=== PATIENT | male | born 1965 | race Caucasian/White ===

== ENCOUNTER → 2020-09-09 12:24 | Outpatient (BNVA) | payer OTHER, SELFPAY | PROVIDERS: PCP Internal Medicine; Referring Provider Internal Medicine; Visit Provider Internal Medicine | DX: I48.0 Paroxysmal atrial fibrillation (principal); I10 Essential (primary) hypertension; Z79.899 Other long term (current) drug therapy | CPT/HCPCS: 93005; 99212 ==

== ENCOUNTER 2020-09-24 15:25 | Emergency (ER) | payer OTHER, SELFPAY ==
--- NOTE | 2020-09-24 | XR_ITS ---
EXAMINATION: XR HAND/WRIST, RIGHT CLINICAL INFORMATION: Finger deformities. COMPARISON: 09/11/2018 TECHNIQUE: Four views of the right hand/wrist FINDINGS: There is dislocation of the proximal interphalangeal joints of the second, third, and fourth digits. There is likely dorsal displacement of the middle phalanges in relation to the proximal phalanges with a offset as well at the third and fourth digits. No acute fractures are seen. Remaining joint spaces are maintained. Soft tissue swelling present at the dislocation site. XR/XR hand wrist RT IMPRESSION: Dislocation of the second, third, and fourth proximal interphalangeal joints.
[2020-09-24 15:51] VITALS: BP 174/83; PULSE 98; RESP 17; TEMP 36.2; O2SAT 98; BMI 28.7
--- NOTE | 2020-09-24 17:25 | XR_ITS ---
EXAMINATION: XR HAND/WRIST, RIGHT CLINICAL INFORMATION: Post reduction COMPARISON: Radiographs from earlier today. TECHNIQUE: Four views of the right hand/wrist FINDINGS: There is been reduction of the dislocation at the second, third, and fourth proximal interphalangeal joints. Alignment is now anatomic. No acute fractures are seen. Mild degenerative changes at the carpometacarpal joints with small osteophytes noted. XR/XR hand wrist RT IMPRESSION: Reduction of the second, third, and fourth proximal interphalangeal joint dislocation with anatomic alignment.
[2020-09-24] MEDS: Lidocaine HCl 2 % MPF 5 ML VIAL INFILTRATI ×3 (17:30→17:31)
--- NOTE | 2020-09-24 17:31 | PC.NURSE ---
LIDOCAINE INJECTION ADMINISTERED BY pa TO REDUCE FINGERS. pT HAS BEEN SPLINTED AND AWAITS FURTHER INSTRUCTIONS.
[2020-09-24 17:32] VITALS: BP 153/82; PULSE 64; RESP 16; O2SAT 99
--- NOTE | 2020-09-24 17:36 | ED.EXTPRO ---
HPI - Extremity Problem General Chief complaint: Extremity Injury, Upper Stated complaint: fall fijnger injury Time Seen by Provider: 09/24/20 16:36 Source: patient Mode of arrival: ambulatory Limitations: no limitations History of Present Illness HPI Narrative: Patient presents to the ED for right hand injury. Patient states he was helping a friend and he was falling while going down the stairs so patient placed in his right hand out and fell onto his right fingers. Patient denies falling to the ground. Patient states only putting right hand out to prevent fall. Patient states he tripped over only 3 steps. Patient states 2nd 3rd and 4th finger are deformed. patient denies hitting head or loss of consciousness. Patient denies body falling to the ground. MD Complaint: extremity pain Related Data Home Medications Medication Instructions Recorded Confirmed amlodipine 10 mg tablet 10 mg PO DAILY 09/09/20 09/09/20 cholecalciferol (vitamin D3) 50 50 mcg PO DAILY 09/09/20 09/09/20 mcg (2,000 unit) capsule cyanocobalamin (vitamin B-12) 1,000 mcg SUBLINGUAL DAILY 09/09/20 09/09/20 1,000 mcg sublingual tablet donepezil 5 mg tablet 5 mg PO BEDTIME 09/09/20 09/09/20 folic acid 1 mg tablet 1 mg PO DAILY 09/09/20 09/09/20 lisinopril 5 mg tablet 5 mg PO DAILY 09/09/20 09/09/20 metoprolol tartrate 50 mg tablet 50 mg PO BID 09/09/20 09/09/20 oxybutynin chloride 10 mg 10 mg PO DAILY 09/09/20 09/09/20 tablet,extended release 24 hr teriflunomide 14 mg tablet 14 mg PO DAILY 09/09/20 09/09/20 Previous Rx's Medication Instructions Recorded pantoprazole 40 mg tablet,delayed 40 mg PO DAILY #30 tab 09/21/20 release Allergies Allergy/AdvReac Type Severity Reaction Status Date / Time No Known Allergies Allergy Verified 09/09/20 12:38 [No Known Allergies*] Review of Systems Review of Systems: Yes all other systems are reviewed and are negative Constitutional: Constitutional: Reports as per HPI and Reports no additional constitutional complaints Eyes: Eyes: Reports as per HPI and Reports no additional eye complaints ENT: Reports system reviewed and no additional complaints, except as documented and Reports as per HPI Cardiovascular: Cardiovascular: Reports as per HPI and Reports no additional cardiovascular complaints Respiratory: Respiratory: Reports as per HPI and Reports no additional respiratory complaints Gastrointestinal: Gastrointestinal: Reports as per HPI and Reports no additional gastrointestinal complaints Genitourinary: Genitourinary: Reports no additional male genitourinary complaints and Reports as per HPI Musculoskeletal: Musculoskeletal: Reports no additional musculoskeletal complaints, Reports as per HPI and Reports deformity ( Right 2/3/4 finger) Neurologic: Reports system reviewed and no additional complaints, except as documented and Reports as per HPI Psychiatric: Psychiatric: Reports no additional psychiatric complaints and Reports as per HPI [facility] Past Medical History Medical History Essential hypertension Multiple sclerosis PAF (paroxysmal atrial fibrillation) Surgical History History of back surgery (~12/2019) History of right cataract surgery Family History Family History Father No problems noted. Mother No problems noted. Social History Social History Alcohol intake: current Alcohol intake frequency: a few times a week Alcohol type: beer Smoking Status: Former smoker Cigarettes Per Day: 5 Smoked in Last 30 Days: No Use of substances other than those prescribed or required for medical reasons: No Advance Directives: No Advance Directives Information Provided: No Physical Exam Vital Signs: Vital Signs: Last Vital Signs Temp 97.1 F 09/24/20 15:51 Pulse 64 09/24/20 17:32 Resp 16 09/24/20 17:32 BP 153/82 H 09/24/20 17:32 Pulse Ox 99 09/24/20 17:32 Body Mass Index 28.7 Const: General: cooperative, healthy appearing, comfortable, no acute distress and well developed Orientation/consciousness: patient oriented x3 HENMT: Head: Yes normal to inspection, Yes No palpable skull fracture present, Yes atraumatic, No Childers's sign, No contusion, No cranial bruits, No hematoma, No laceration, No occipital foramen tenderness, No palpable skull fracture, No raccoon eyes, No scalp tenderness and No periorbital ecchymosis Eyes: General: appearance normal, both eyes and all related structures Neck: Neck: Yes normal visual inspection, Yes full ROM, Yes no lymphadenopathy, Yes no meningeal signs, Yes trachea midline, Yes supple and No tender Chest: Chest palpation & inspection: normal inspection of the chest, normal palpation of entire chest wall and no localized rib tenderness Resp: Effort & Inspection: normal respiratory effort and able to speak in complete sentences Auscultation: clear to auscultation bilaterally Cardio: Jugular venous distension: no JVD Heart sounds: S1 normal heart sound present and S2 normal heart sound present GI: Inspection: Yes normal to inspection : General: No CVA tenderness and Yes no CVA tenderness Back/Spine/Pelvis: Back: no CVA tenderness, No CVA tenderness and No back tenderness Skin: General skin exam: no rashes or lesions noted Neuro: General: patient oriented x3, gait normal, no meningeal signs and CN's II-XI intact bilaterally Cranial nerves: Yes CN's II-XII intact bilaterally Extrem: Other: positive for deformity of right 2/3/4 finger. Right fingers capillary refill is intact. Radial and brahical pulses of right upper exstremity. Other extremities are normal ( motor, neuro, and vascular exam) and negative for signs of trauma. Psych: Appearance: grossly normal, well kempt and not disheveled Course Course Course Narrative: Patient will be sent for x-ray to rule out any fracture or dislocations. Reevaluation(s) Reevaluation #1: 7 mL lidocaine was used for all 3 fingers. for anesthesia, 2% lidocaine was done. Fingers were clean with Betadine iodine. Patient placed in finger splint. Time: 17:45 Reevaluation #2: Patient's reduction was successful as per xray. Patient to be discharged and follow orthopedic. FInger splints placed by tech. Time: 18:16 MDM - Extremity (Nontraumatic) MDM Narrative Medical decision making narrative: finger dislocations. Discharge Plan Discharge Clinical Impression: Dislocation of finger Patient Disposition: Home, Self-Care Instructions: Finger Dislocation (ED) Prescriptions: No Action pantoprazole 40 mg tablet,delayed release (DR/EC) 40 mg PO DAILY Qty: 30 RF: 2 cholecalciferol (vitamin D3) 50 mcg (2,000 unit) capsule 50 mcg PO DAILY RF: 0 cyanocobalamin (vitamin B-12) 1,000 mcg tablet, sublingual 1,000 mcg sublingual DAILY RF: 0 lisinopril 5 mg tablet 5 mg PO DAILY RF: 0 folic acid 1 mg tablet 1 mg PO DAILY RF: 0 amlodipine 10 mg tablet 10 mg PO DAILY RF: 0 oxybutynin chloride 10 mg tablet extended release 24hr 10 mg PO DAILY RF: 0 Aubagio 14 mg tablet 14 mg PO DAILY RF: 0 donepezil 5 mg tablet 5 mg PO BEDTIME RF: 0 metoprolol tartrate 50 mg tablet 50 mg PO BID RF: 0 Referrals: Haroon Powers MD [Physician] - 2 days ( Right 2nd, 3rd, and 4th finger dislocation reduced.) Stand Alone Forms: Work/School Release Print Language: [place]
== END 2020-09-24 18:46 | disposition home or self-care (01) ==
PROVIDERS: Emergency Provider Emergency Medicine
DX: S63.280A Dislocation of proximal interphalangeal joint of right index finger, initial encounter (principal); S63.282A Dislocation of proximal interphalangeal joint of right middle finger, initial encounter; S63.284A Dislocation of proximal interphalangeal joint of right ring finger, initial encounter; W50.0XXA Accidental hit or strike by another person, initial encounter; Y93.9 Activity, unspecified; Y92.9 Unspecified place or not applicable; Y99.9 Unspecified external cause status; I48.0 Paroxysmal atrial fibrillation
CPT/HCPCS: 26770 ×3; 73110; 73130; 99284

== ENCOUNTER 2020-09-28 11:29 | Outpatient (REF) | payer OTHER, SELFPAY ==
--- NOTE | 2020-09-28 11:29 | XR_ITS ---
EXAMINATION: XR HAND, RIGHT CLINICAL INFORMATION: Dislocation of PIP joint of unspecified finger. COMPARISON: None TECHNIQUE: PA, lateral, and oblique views of the right hand. FINDINGS: There is normal alignment of and 60, PIP and DIP joints. No visible acute fracture, dislocation or subluxation seen. However there is volar displacement fracture along the proximal and mid phalanx second digit. Mild loss of the DIP joint second digit is noted. XR/XR hand RT min 3V IMPRESSION: Small displaced avulsion fracture base of mid phalanx second digit. Mild soft tissue swelling. Osteophytic changes DIP joint second digit.
== END 2020-09-28 11:30 | disposition home or self-care (01) ==
LOC: HO.HOSX 11:29
PROVIDERS: Visit Provider Orthopaedic Surgery
DX: S63.280A Dislocation of proximal interphalangeal joint of right index finger, initial encounter (principal); S63.282A Dislocation of proximal interphalangeal joint of right middle finger, initial encounter; S63.284A Dislocation of proximal interphalangeal joint of right ring finger, initial encounter; Z87.891 Personal history of nicotine dependence
CPT/HCPCS: 73130; 99202

== ENCOUNTER 2020-11-03 10:23 | Outpatient (REF) | payer OTHER, SELFPAY ==
[2020-11-03 12:01] LABS: Anion Gap 12 (12-20); Blood Urea Nitrogen 18 mg/dL (9-16); Calcium 9.1 mg/dL (8.4-10.2); Carbon Dioxide 31 mmol/L (22-29); Chloride 102 mmol/L (96-108); Cholesterol 255 mg/dL; Estimated Glomerular Filt Rate > 60; Glucose Fasting 111 mg/dL (60-99); HDL Cholesterol 50 mg/dL; LDL Cholesterol Calculated 160 mg/dl; Potassium 4.8 mmol/l (3.3-5.1); Sodium 140 mmol/L (135-145); Triglycerides 226 mg/dL
== END 2020-11-03 10:24 | disposition home or self-care (01) ==
LOC: HO.HMGCLDS 10:23
PROVIDERS: PCP Internal Medicine; Visit Provider Internal Medicine
DX: E78.5 Hyperlipidemia, unspecified (principal); I10 Essential (primary) hypertension; R73.01 Impaired fasting glucose
CPT/HCPCS: 36415; 80048; 80061

== ENCOUNTER → 2020-11-20 15:07 | Outpatient (BNVA) | payer OTHER, SELFPAY | PROVIDERS: PCP Internal Medicine; Visit Provider Urology ==

== ENCOUNTER 2020-12-23 10:20 | Outpatient (REF) | payer OTHER, SELFPAY | END 2020-12-23 10:21 | disposition home or self-care (01) | LOC: HO.LAB 10:20 | PROVIDERS: PCP Internal Medicine; Visit Provider Internal Medicine | DX: Z13.89 Encounter for screening for other disorder (principal) ==

== ENCOUNTER 2021-02-19 12:42 | Outpatient (REF) | payer OTHER, SELFPAY ==
[2021-02-19 14:23] LABS: Estimated Average Glucose 94 mg/dL; Hemoglobin A1c % 4.9 %
[2021-02-19 14:25] LABS: Alanine Aminotransferase 21 U/L (0-40); Anion Gap 14 (12-20); Aspartate Amino Transferase 19 U/L (5-37); Blood Urea Nitrogen 11 mg/dL (9-16); Calcium 9.3 mg/dL (8.4-10.2); Carbon Dioxide 26 mmol/L (22-29); Chloride 105 mmol/L (96-108); Cholesterol 255 mg/dL; Estimated Glomerular Filt Rate > 60; Glucose Fasting 103 mg/dL (60-99); HDL Cholesterol 41 mg/dL; LDL Cholesterol Calculated 167 mg/dl; Potassium 4.5 mmol/L (3.3-5.1); Sodium 140 mmol/L (135-145); Triglycerides 235 mg/dL
[2021-02-19 14:49] LABS: Vitamin D 25-OH Total 32.3 ng/mL (>30)
[2021-02-19 16:51] LABS: Folate 14.6 ng/mL (> or = 4.0); Vitamin B12 741 pg/mL (200-900)
== END 2021-02-19 12:43 | disposition home or self-care (01) ==
LOC: HO.HMGCLDS 12:42
PROVIDERS: PCP Internal Medicine; Visit Provider Internal Medicine
DX: E78.5 Hyperlipidemia, unspecified (principal); R73.01 Impaired fasting glucose; I10 Essential (primary) hypertension
CPT/HCPCS: 36415; 80048; 80061; 82306; 82607; 82746; 83036; 84450; 84460

== ENCOUNTER → 2021-09-08 07:15 | Outpatient (REF) | payer OTHER, SELFPAY ==
--- NOTE | 2021-09-08 07:19 | CA_ITS ---
INDICATIONS: PAROXYSMAL ATRIAL FIBRILLATION: HT: 5'11 WT: 202 BSA: 2.12 m^2 BP: 120/80 M-MODE/2D MEASUREMENTS: LVd: 5.41 cm LVs: 4.2 cm IVSd: 0.9 cm LVPWd: 0.9 cm ASC.Aorta: 3.1 cm RVd: 3.46 cm AO root: 3.6 cm LA: 4.2 cm LVOT: 2.1 cm TAPSE: 2.87 cm OTHER: RVSP: 19 mmHg Mitral E/A: 78.8 cm/s/ 70.7 cm/s = 1.1 E Med. 7.18 cm/s E Lat. 9.14 cm/s DOPPLER MEASUREMENTS: PPG 4 mmHg MPG 8 mmHg Velocity 140 m/s Valve Area: 2.84 cm^2 TRICUSPID: MP mmHg RA Vol. IVC: 1.48 LA Vol. 36.9 ml/m^2 RVS: 14.4 cm/s MTDD
--- NOTE | 2021-09-08 07:19 | CA_ITS ---
Transthoracic Echocardiogram Patient (Last, First, Middle): Daniel Guadalupe D Gender: Male Date of : 1965 Age: 56 Procedure Date: 09/08/2021 Procedure Type: Transthoracic Echocardiogram Location: OP Height: 180.34 cm Weight: 91.63 kg BSA: 2.12 m2 Heart Rate: bpm BP: 120 / 80 mmHg [place]: Referring MD: Gabriel Mathews MD Symptoms: I48.0 - Paroxysmal atrial fibrillation Conclusions: - 1. Normal LV systolic function with impaired relaxation filling pattern with elevated left ventricular end-diastolic pressure 2. Mild biatrial enlargement 3. Normal cardiac valvular Doppler 4. Normal RV systolic pressure 5. No gross pericardial effusion Findings Left Ventricle Normal left ventricular size, thickness, and systolic function. The visually estimated ejection fraction is between 55-60%. Spectral Doppler is indicative of an impaired relaxation filling pattern. Elevated left ventricular end diastolic pressure. E/E prime ratio is between 8 and 15 consistent with indeterminate filling pressures. Wall Motion Rest Echo Findings The basal inferior and basal inferoseptal segments are hypokinetic. All other scored wall segments showed normal motion. Right Ventricle Mildly increased right ventricular cavity size. There is normal right ventricular systolic function. Atria Mild biatrial enlargement. Interatrial shunt cannot be excluded. Aortic Valve Normal aortic valve structure and function. There is no aortic valve stenosis. There is no aortic valve regurgitation. Mitral Valve There is mild anterior and posterior mitral leaflet thickening. There is trace mitral valve regurgitation. There is no mitral valve stenosis. Pulmonic Valve The pulmonic valve was not well visualized. Tricuspid Valve Normal tricuspid valve structure. There is mild tricuspid valve regurgitation. The right ventricular systolic pressure is normal. The right ventricular systolic pressure is 21 mmHg. Normal right atrial pressure. There is no evidence of pulmonary hypertension. Great Vessels All visible segments of the aorta are normal in size. The pulmonary artery was not well visualized. Venous The inferior vena cava is normal in size and collapses greater than 50% with inspiration. Pericardium/Pleural There is no evidence of pericardial effusion. Prior Study Comparison No significant change compared to prior study dated: 10/05/2016. Measurements 2D Linear Measurements IVSd: 0.93 0.6-0.9/0.6-1.0 cm LVIDd: 5.41 3.9-5.3/4.2-5.9 cm LVIDd Index: 2.55 2.4-3.2/2.2-3.1 cm/m2 LVIDs: 3.80 2.0-3.6 cm LVPWd: 0.97 0.7-1.1 cm Ao Root: 3.60 2.1-3.5 cm LA Diam: 4.20 2.7-3.8/3.0-4.0 cm LAIDs Index: 1.98 1.5-2.3 cm/m2 LV Mass: 242.24 67-162/88-224 g LV Mass Index: 114.26 43-95/49-115 g/m2 LVOT Diam: 2.10 3.0+(-)1.3 cm 2D Systolic Function EF 4C: 52.70 >55% EF 2C: 55.20 >55% EF BiP: 55.00 >55% Mitral Valve MV Pk E: 0.79 MV PK A: 0.71 MV Decel Time: 253.00 E/A: 1.10 E'Lateral: 9.14 E'Medial: 7.18 E/E' Med: 11.00 E/E' Lat: 8.60 PHT: 74.00 MVA PHT: 2.97 Decel Cavalier: 3.11 Aortic Valve AoV Pk Luisito: 1.40 AoV Mn Luisito: 0.92 AoV VTI: 0.34 AoV Pk Grad: 8.00 Aov Mn Grad: 4.00 PATRICK Cont.VTI: 2.78 LVOT LVOT Pk Luisito: 1.19 LVOT Mn Luisito: 0.81 LVOT VTI: 0.27 LVOT Pk Grad: 6.00 LVOT Mn Grad: 3.00 LVOT Diam: 2.10 LVOT Area: 3.46 Diastolic Function MV Pk E: 0.79 MV Pk A: 0.71 E/A: 1.10 E'Medial: 7.18 E/E' Med: 11.00 E' Laterial: 9.14 E/E' Lat: 8.60 Right Ventricle TAPSE (mm): 2.87 Tricuspid Valve TR Pk Luisito: 2.15 TR Pk Grad: 18.00 RA Press: 3.00 RVSP: 21.00 Great Vessels Aorta Ao Root-2D: 3.60 2.0-3.7 cm Ao Asc: 3.10 2.1-3.4 cm Pulmonary Valve PV Pk Luisito: 1.25 Peak PV Grad: 6.00 Updated in Other Vendor System with Status of Final John Graves MD electronically signed on 09/14/2021 8:44:27 AM with status of Final
== END ==
LOC: HO.CARD 07:15
PROVIDERS: Visit Provider Internal Medicine
DX: I48.0 Paroxysmal atrial fibrillation (principal)
CPT/HCPCS: 93306

== ENCOUNTER → 2021-09-13 12:20 | Outpatient (REF) | payer OTHER, SELFPAY ==
--- NOTE | 2021-09-13 15:29 | ECG_ITS ---
Hook-up date: 2021-09-13 13:30:00 Duration: 47:59:00 Test Indications: Paroxysmal Atrial Fibrillation Medications: 93352 QRS complexes 2 Ventricular ectopics which represent <1 % of total QRS comp. 65 Supraventricular ectopics which represent <1 % of total QRS comp. * Paced QRS complexs which represent % of total QRS comp. VENTRICULAR ECTOPY 2 Isolated 0 Bigeminal Cycles 0 Couplets 0 Runs 0 Beats in Runs * Beats LONGEST at * BPM at :: -- * Beats FASTEST at * BPM at :: -- SUPRAVENTRICULAR ECTOPY 47 Isolated 1 Couplets 2 Runs 16 Beats in Runs 11 Beats LONGEST at 137 BPM at 08:42:31 2021-09-14 11 Beats FASTEST at 137 BPM at 08:42:31 2021-09-14 HEART RATES 46 MIN at 06:39:05 2021-09-14 61 AVG 120 MAX at 07:07:31 2021-09-14 LONGEST RR 1.4480 secs at 23:28:19 2021-09-13 S-T LEVELS Channel 1 - 128 mm at 13:30:00 2021-09-13 - 128 mm at 13:30:00 2021-09-13 Channel 2 - 128 mm at 13:30:00 2021-09-13 - 128 mm at 13:30:00 2021-09-13 Channel 3 - 128 mm at 03:24:91 -- - 128 mm at 03:24:91 Basic rhythm Normal sinus rhythm No long pause or profound bradycardia Frequent Sinus bradycardia , 56% of time HR < 60 bpm No sustained Atrial fibrillation No diary submitted Referred By: Gabriel Mathews Overread By: YASMANI PARSONS MD
== END ==
LOC: HO.CARD 12:20
PROVIDERS: PCP Internal Medicine; Referring Provider Internal Medicine; Visit Provider Internal Medicine
DX: I48.0 Paroxysmal atrial fibrillation (principal)
CPT/HCPCS: 93226

== ENCOUNTER → 2021-10-28 13:42 | Outpatient (BNVA) | payer OTHER, SELFPAY | PROVIDERS: PCP Internal Medicine; Referring Provider Internal Medicine; Visit Provider Internal Medicine | DX: I48.0 Paroxysmal atrial fibrillation (principal); I10 Essential (primary) hypertension; R93.1 Abnormal findings on diagnostic imaging of heart and coronary circulation | CPT/HCPCS: 93005; 99212 ==

== ENCOUNTER 2021-11-06 10:20 | Outpatient (REF) | payer OTHER, SELFPAY ==
[2021-11-06 11:57] LABS: Cholesterol 275 mg/dL; HDL Cholesterol 43 mg/dL; LDL Cholesterol Calculated 188 mg/dl; Triglycerides 221 mg/dL
== END 2021-11-06 10:21 | disposition home or self-care (01) ==
LOC: HO.HMGCLDS 10:20
PROVIDERS: Absent Provider Urology; Visit Provider Internal Medicine
DX: Z12.5 Encounter for screening for malignant neoplasm of prostate (principal); N13.8 Other obstructive and reflux uropathy; N32.0 Bladder-neck obstruction; N40.1 Benign prostatic hyperplasia with lower urinary tract symptoms; E78.5 Hyperlipidemia, unspecified
CPT/HCPCS: 36415; 80061; 84153

== ENCOUNTER → 2021-11-12 07:58 | Outpatient (REF) | payer OTHER, SELFPAY ==
--- NOTE | ~2021-11-12 | NM_ITS ---
EXERCISE MYOCARDIAL PERFUSION STUDY INDICATION: Atrial fibrillation, abnormal echocardiogram with wall motion abnormality, assess for coronary disease and ischemia TECHNIQUE: The patient was brought in for an exercise perfusion study on 11/12/2021. Patient performed exercise as per Bucky protocol and was injected 30 mCi of sestamibi once target heart rate was achieved. Images were obtained using the SPECT gamma camera interlaced with the gating device. Images were obtained in supine position. Resting perfusion study was performed on 11/15/2021. Patient was administered 30 mCi of sestamibi intravenously at rest. Images were then obtained in supine position. Total DLP 90mGy-cm. Images were processed with the software and compared side to side in short axis, horizontal long axis and vertical long axis views. FINDINGS: Raw images were reviewed. The stress perfusion study showed minimally reduced tracer uptake in the apical inferior wall. This is more accentuated with CT attenuation correction. The gated study shows normal LV systolic function with calculated LVEF of 62%. LV cavity is normal in size. The gated study shows normal wall thickening and contraction of segments. Resting study shows no significant perfusion abnormality. Gating at rest reveals normal wall motion with ejection fraction at 63%. The findings are consistent with very small reversible apical inferior defect, but with normal contractility. NM/NM cardiolite stress test IMPRESSION: 1. Myocardial perfusion imaging study shows probably normal myocardial perfusion. Very small apical inferior reversible defect, but with normal regional contractility and hence more likely artifactual than true ischemic defect. 2. Gated LVEF is 62% during stress and 63% during rest. 3. Transient ischemic dilatation not present. EKG component of the test reported separately.
--- NOTE | 2021-11-12 08:02 | CA_ITS ---
Acquisition Time: 2021-11-12 09:09:48 Total Exercise Time: 00:06:45 Test Indications: AFIB Medications: SEE CHART Protocol: VICENTE Max HR: 141 BPM 86% of Pred: 163 BPM Max BP: 170/078 mmHG Max Work Load: 8.1 METS Exercise stress test with exercise 6 min 45 sec of Vicente protocol, with mild shortness of breath, no chest discomfort, without arrythmia, with normotensive response to exercise, without EKG changes meeting criteria for ischemia. Nuclear images pending. Test reviewed with Dr Lyn. Referred By: Gabriel Mathews Overread By: SHAKA SCHUMACHER
== END ==
LOC: HO.CARD 07:58
PROVIDERS: PCP Internal Medicine; Visit Provider Internal Medicine
DX: R93.1 Abnormal findings on diagnostic imaging of heart and coronary circulation (principal)
CPT/HCPCS: 78452; 93017; A9500

== ENCOUNTER → 2021-11-23 12:08 | Outpatient (BNVA) | payer OTHER, SELFPAY | PROVIDERS: PCP Internal Medicine; Visit Provider Urology ==

== ENCOUNTER → 2022-01-26 12:44 | Outpatient (BNVA) | payer OTHER, SELFPAY | PROVIDERS: PCP Internal Medicine; Visit Provider Urology | DX: Z13.89 Encounter for screening for other disorder (principal) ==

== ENCOUNTER 2022-02-15 10:53 | Outpatient (REF) | payer OTHER, SELFPAY ==
[2022-02-15 14:10] LABS: MANUAL DIFF FLAG NO
[2022-02-15 14:14] LABS: Basophils Percent Auto 0.6 % (0-2); Eosinophils Absolute Auto 0.4 X10*3/uL (0.0-0.4); Eosinophils Percent Auto 5.5 % (0-4); Hematocrit 42.4 % (42.0-52.0); Hemoglobin 14.5 g/dl (14.0-18.0); Imm Gran Abs Auto 0.02 X10*3/uL (0.00-0.03); Imm Gran Pct Auto 0.3 % (0.0-0.4); Lymphocytes Absolute Auto 1.8 X10*3/uL (1.2-4.9); Lymphocytes Percent Auto 28.4 % (20-40); Mean Corpuscular HGB Conc 34.2 g/dl (31.0-36.0); Mean Corpuscular Hemoglobin 32.8 pg (27.0-33.0); Mean Corpuscular Volume 95.9 fL (80.0-98.0); Mean Platelet Volume 9.1 fL (9.4-12.4); Monocytes Absolute Auto 0.7 X10*3/uL (0.1-1.2); Monocytes Percent Auto 11.1 % (2-11); Neutrophils Absolute Auto 3.4 x10*3/uL (2.0-8.3); Neutrophils Percent Auto 54.1 % (45-73); Platelet Count 309 X10*3/uL (160-400); Red Blood Count 4.42 X10*6/uL (4.60-5.80); Red Cell Distribution Width 11.8 % (11.0-16.0); White Blood Count 6.4 X10*3/uL (4.8-10.8)
[2022-02-15 14:24] LABS: Estimated Average Glucose 97 mg/dL
[2022-02-15 14:25] LABS: Alanine Aminotransferase 34 U/L (0-40); Anion Gap 10 (12-20); Aspartate Amino Transferase 19 U/L (5-37); Blood Urea Nitrogen 14 mg/dL (9-16); Calcium 9.6 mg/dL (8.4-10.2); Carbon Dioxide 28 mmol/L (22-29); Chloride 106 mmol/L (96-108); Cholesterol 160 mg/dL; Estimated Glomerular Filt Rate > 60; Glucose Fasting 102 mg/dL (60-99); HDL Cholesterol 46 mg/dL; LDL Cholesterol Calculated 92 mg/dl; Potassium 4.7 mmol/L (3.3-5.1); Sodium 139 mmol/L (135-145); Triglycerides 111 mg/dL
[2022-02-15 14:42] LABS: Vitamin D 25-OH Total 39.1 ng/mL (>30)
[2022-02-15 14:48] LABS: Prostate Specific Antigen 2.19 ng/mL (<0.05-4.0)
[2022-02-15 14:56] LABS: Folate 16.1 ng/mL (> or = 4.0); Vitamin B12 594 pg/mL (200-900)
== END 2022-02-15 10:54 | disposition home or self-care (01) ==
LOC: HO.HMGCLDS 10:53
PROVIDERS: Urology; Visit Provider Internal Medicine
DX: I10 Essential (primary) hypertension (principal); E78.2 Mixed hyperlipidemia; D75.89 Other specified diseases of blood and blood-forming organs; R73.01 Impaired fasting glucose; E78.5 Hyperlipidemia, unspecified; I48.0 Paroxysmal atrial fibrillation; N40.1 Benign prostatic hyperplasia with lower urinary tract symptoms; N13.8 Other obstructive and reflux uropathy
CPT/HCPCS: 36415; 80048; 80061; 82306; 82550; 82607; 82746; 83036; 84153; 84450; 84460; 85025

== ENCOUNTER 2022-08-31 13:18 | Outpatient (REF) | payer OTHER, SELFPAY ==
--- NOTE | ~2022-08-31 | MR_ITS ---
EXAMINATION: MR BRAIN WITHOUT AND WITH CONTRAST CLINICAL INFORMATION: 57-year-old with diagnosis of long-standing MS for follow up exam. COMPARISON: 02/21/2018 MRI. TECHNIQUE: Multiplanar, multisequence MRI of the brain was obtained before and after the intravenous administration of 10 mL Gadavist. FINDINGS: BRAIN VOLUME: There is generalized diffuse brain parenchymal volume loss with some progression of left peritrigonal volume loss but otherwise stable. Diffuse callosal volume loss is stable. STRUCTURAL: No malformations. BRAIN AND MENINGES: Redemonstrated is a zone of DWI bright signal in the left mesial parietal lobe, stable in appearance from previous exam, which corresponds to a gyriform T2 hyperintensity on FLAIR/T2-weighted imaging and probably reflects T2 shine through, unchanged in appearance. Redemonstrated are extensive regions of patchy and confluent FLAIR/T2 signal hyperintensity within the subcortical and deeper periventricular white matter of both cerebral hemispheres with zones of the low T1 signal, particularly in the left periatrial region and within the centrum semiovale and periventricular regions bilaterally, similar in appearance to the previous exam, with an overall stable pattern and distribution of lesions, consistent with chronic demyelination. Encephalomalacia in the left peritrigonal region is similar to previous exam but with some progression of ex-vacuo dilatation of the trigone of the left lateral ventricle since previous exam consistent with some progression of volume loss regionally. Patchy T2 hyperintensity in the lenin on both sides of the midline is slightly less prominent on current study. No definite new lesions are seen and there is no definite evidence for abnormal enhancement to suggest active demyelination. No extra-axial fluid collections, acute infarction, mass lesion or pathologic intracranial enhancement and no space-occupying process or mass effect. VENTRICLES AND SUBARACHNOID SPACES: The ventricular system is similar in appearance to the previous exam without hydrocephalus aside from slight progression of dilatation of the trigone on the left. ORBITAL STRUCTURES: Right-sided lens extraction noted, stable in appearance. Otherwise, the visualized orbital structures are grossly unremarkable within the limitations of the study. VASCULAR: Signal voids are noted in the visualized major intracranial vessels. OSSEOUS STRUCTURES, SINUSES/MASTOIDS, EXTRACRANIAL SOFT TISSUES: There is pansinus mucosal inflammatory change with progression of ethmoid sinus disease since previous exam, now with some retained, probably aerosolized secretions in the left maxillary sinus. Minimal fluid signal in the right mastoid on current study. Osseous structures appear grossly intact. MR/MR head/brain wo/w con IMPRESSION: 1. Essentially stable pattern of demyelinating disease throughout both cerebral hemispheres with findings consistent with chronic demyelination with no new or enhancing lesions to suggest active demyelination. 2. Overall pattern of volume loss is similar to the previous exam with slight progression of deep left peritrigonal volume loss but otherwise no significant change in the appearance of the ventricular system. 3. Pansinus mucosal inflammatory changes with some progression in the ethmoid sinus, now with some retained fluid in the left maxillary sinus and right mastoid.
== END 2022-08-31 13:19 | disposition home or self-care (01) ==
LOC: HO.MRI 13:18
PROVIDERS: PCP Internal Medicine; Visit Provider Psychiatry & Neurology Neurology
DX: G35 Multiple sclerosis (principal)
CPT/HCPCS: 70553; A9585

== ENCOUNTER 2022-10-05 12:11 | Outpatient (REF) | payer OTHER, SELFPAY ==
[2022-10-05 17:02] LABS: Alanine Aminotransferase 25 U/L (0-40); Anion Gap 12 (12-20); Aspartate Amino Transferase 18 U/L (5-37); Blood Urea Nitrogen 12 mg/dL (9-16); Calcium 9.2 mg/dL (8.4-10.2); Carbon Dioxide 27 mmol/L (22-29); Chloride 104 mmol/L (96-108); Cholesterol 164 mg/dL; Estimated Glomerular Filt Rate > 60; Glucose Fasting 107 mg/dL (60-99); HDL Cholesterol 45 mg/dL; LDL Cholesterol Calculated 88 mg/dl; Potassium 4.4 mmol/L (3.3-5.1); Sodium 139 mmol/L (135-145); Triglycerides 158 mg/dL; Vitamin D 25-OH Total 44.7 ng/mL (>30)
== END 2022-10-05 12:12 | disposition home or self-care (01) ==
LOC: HO.HMGCLDS 12:11
PROVIDERS: PCP Internal Medicine; Visit Provider Internal Medicine
DX: E78.2 Mixed hyperlipidemia (principal); R73.01 Impaired fasting glucose; I10 Essential (primary) hypertension
CPT/HCPCS: 36415; 80048; 80061; 82306; 84450; 84460

== ENCOUNTER → 2022-10-31 12:37 | Outpatient (BNVA) | payer OTHER, SELFPAY | PROVIDERS: PCP Internal Medicine; Referring Provider Internal Medicine; Visit Provider Internal Medicine | DX: I48.0 Paroxysmal atrial fibrillation (principal); I10 Essential (primary) hypertension; R93.1 Abnormal findings on diagnostic imaging of heart and coronary circulation | CPT/HCPCS: 93005; 99212 ==

== ENCOUNTER 2023-02-20 12:21 | Outpatient (AMB) | payer OTHER, SELFPAY ==
--- NOTE | 2023-02-20 12:24 | MHC.PC.OV ---
Vital Signs 02/20/23 12:41 Height 5 ft 10 in Weight 206 lb BMI 29.6 BP 112/64 Blood Pressure Location Rt brachial Position Sitting Pulse 48 L Pulse Source Pulse Oximeter Pulse Oximetry (%) 97 Oxygen Delivery Method Room Air Intake Visit Reasons: PE annual physical Intake Note: Pt is here today for his Physical Exam Allergies No Known Allergies [No Known Allergies*] Allergy (Verified 02/20/23 12:51) Medication List - Last Reconciled 02/20/23 by Cynthia Joseph MD amlodipine 10 mg PO DAILY cholecalciferol (vitamin D3) 50 mcg PO DAILY cyanocobalamin (vitamin B-12) 1,000 mcg sublingual DAILY donepezil 5 mg PO BEDTIME folic acid 1 mg PO DAILY lisinopril 5 mg PO DAILY metoprolol tartrate 50 mg PO BID 90 days oxybutynin chloride ER 10 mg PO DAILY 90 days pantoprazole 40 mg PO DAILY rosuvastatin 5 mg PO DAILY tamsulosin 0.4 mg PO BEDTIME 90 days teriflunomide 14 mg PO DAILY tizanidine 4 mg PO BID Tobacco use date assessed: 02/20/23 HPI PE annual physical HPI Details 58-year-old male here today for physical exam. . He has multiple sclerosis, followed by Dr. Ceja , no new changes currently on teriflunomide and tizanidine as needed for muscle spasms. He sees Dr. Sapp for his overactive bladder currently on tamsulosin. He has paroxysmal atrial fibrillation, hypertension, dyslipidemia and found to have some regional wall motion abnormality of heart on echocardiogram, currently asymptomatic. He was seen earlier this year by Dr. Mathews advised to continue on metoprolol and amlodipine. His thromboembolic score is very low and duration of atrial fibrillation in the past has also been brief, hence not on any anticoagulation. He had an Echocardiogram done which showed with basal inferior/inferoseptal hypokinesis, LVEF is preserved at 55-60%. In the perfusion imaging, there was small apical inferior reversible defect but normal contractility. Thought to be possibly artifactual. Overall, findings could reflect possible coronary disease but he has got absolutely no symptoms at all. Hence no indication to proceed with further workup. Optimal control of blood pressure and cholesterol. [facility], [facility] Medical History (Updated 07/16/23 @ 16:47 by Cynthia Joseph MD) Lumbar disc disease with radiculopathy Mixed dyslipidemia Symptom of bladder outlet obstruction Macrocytosis without anemia Impaired fasting glucose Dyslipidemia Dislocation of proximal interphalangeal joint of right ring finger Dislocation of proximal interphalangeal joint of right middle finger Dislocation of proximal interphalangeal joint of right index finger Closed dislocation finger, proximal interphalangeal joint, traumatic Multiple sclerosis Essential hypertension PAF (paroxysmal atrial fibrillation) Surgical History Hx of colonoscopy History of back surgery (~12/2019) History of right cataract surgery Family History Father No problems noted. Mother No problems noted. Social History Housing: House Alcohol intake: current Alcohol intake frequency: a few times a week Alcohol type: beer Patient Tobacco Use Status: Former Tobacco user Years Smoked: 40 yrs e-Cigarette/Vaping Use: Never Used Current occupational status: disabled Current occupation: rt handed Cognitive needs: No Hearing needs: No Vision needs: No Questionnaire PHQ-9 Over the last 2 weeks, how often have you been bothered by any of the following problems? 1. Little interest or pleasure in doing things: not at all 2. Feeling down, depressed, or hopeless: not at all 3. Trouble falling or staying asleep, or sleeping too much: not at all 4. Feeling tired or having little energy: several days 5. Poor appetite or overeating: not at all 6. Feeling bad about yourself - or that you are a failure or have let yourself or your family down: not at all 7. Trouble concentrating on things, such as reading the newspaper or watching television: several days 8. Moving or speaking so slowly that other people could have noticed. Or the opposite - being so fidgety or restless that you have been moving around a lot more than usual: not at all 9. Thoughts that you would be better off or of hurting yourself in some way: not at all Total score: 2 Depression Screening Interpretation: Negative 34226 - PHQ-9 Billing: Yes Source: Developed by Drs. Leoncio L. ClifMarjorie cantu, Efrem Mustafa and colleagues, with an educational jd from [employer]. Thrive Questionnaire Declines Thrive assessment: No Date Thrive assessed: 02/20/23 I am a: Patient What is your living situation today?: I have a steady place to live Within the past 12 months, did the food you bought not last and you didn't have the money to get more?: Never true Within the past 12 months, did you worry whether your food would run out before you got money to buy more?: Never true Do you have trouble paying for medicines?: Yes Do you have trouble getting transportation to medical appointments?: No Do you have trouble paying your heating and electricity bill?: No Do you have trouble taking care of your child, family member or friend?: No Do you have trouble with day-to-day activities such as bathing, preparing meals, shopping, managing finances, etc.?: No Are you currently unemployed and looking for a job?: No Are you interested in more education?: No AUDIT C Alcohol Use Questionnaire (AUDIT-C) 1. How often do you have a drink containing alcohol?: Monthly or less 2. How many drinks containing alcohol do you have on a typical day when you are drinking?: 1 or 2 3. How often do you have six or more drinks on one occasion?: Never Total Score: 1 BLANCA-7 AMB Questionnaire BLANCA-7 Date BLANCA - 7 assessed: 02/20/23 Feeling nervous, anxious, or on edge: 1 = Several days Not being able to stop or control worryin = Several days Worrying too much about different things: 1 = Several days Trouble relaxin = Not at all Being so restless that it is hard to sit still: 0 = Not at all Becoming easily annoyed or irritable: 1 = Several days Feeling afraid as if something awful might happen: 0 = Not at all Total BLANCA-7 score (0-4 normal; 5-9 mild; 10-14 moderate; 15-21 severe): 4 Source: Developed by Marjorie English, Efrem Mustafa and colleagues, with an educational jd from [employer]. BLANCA-7 Assessment Billing BLANCA-7 Assessment Tool: BLANCA-7 Assessment 38388 Review of Systems Const Denies body aches, Denies fatigue, Denies malaise and Denies weakness Eyes Denies change in vision ENT Reports no additional complaints Card Denies chest pain, Denies chest pain with activity, Denies syncope, Denies rapid heart rate, Denies leg edema, Denies lightheadedness, Denies palpitations, Denies dyspnea, Denies dyspnea on exertion and Denies orthopnea Resp Denies cough, Denies dyspnea and Denies dyspnea on exertion GI Denies abdominal pain, Denies melena, Denies hematochezia, Denies change in bowel habits, Denies change in stool character and Reports heartburn (Occasional controlled on pantoprazole) Reports as per HPI Musc Denies abnormal gait, Denies muscle weakness, Denies numbness, Denies radiating pain into limb and Denies tingling Skin/Breast Denies lesions and Denies rash Neuro Denies abnormal gait, Denies syncope, Denies numbness, Denies tingling and Denies weakness Psych Reports no additional complaints Endo Denies fatigue and Denies palpitations Randell/Lymph Reports no additional complaints Aller/Immun Reports no additional complaints Physical exam (Primary Care) Vital Signs: Last Vital Signs Pulse 48 L 02/20/23 12:41 BP 112/64 02/20/23 12:41 Pulse Ox 97 02/20/23 12:41 Oxygen Delivery Method Room Air 02/20/23 12:41 BMI result Body Mass Index 29.6 Tobacco/Smoking Status: Tobacco use Status Tobacco use date assessed 02/20/23 02/20/23 12:25 Patient Tobacco Use Status Former Tobacco user 02/20/23 12:25 e-Cigarette/Vaping Use Never Used 02/20/23 12:25 PHQ-9: PHQ-9 Score PHQ-9: Total score 5 02/20/23 13:07 Depression Screening Interpretation: Negative Thrive Assessment: Date of Thrive Assessment Date Thrive assessed 02/20/23 02/20/23 12:46 Const Other: Alert oriented x3, no acute distress noted ambulatory with normal gait Orientation/consciousness: patient oriented x3 HENMT Face and sinus: Yes face symmetric Mouth: Normal oral and palatal mucosa present, oropharynx normal and moist mucous membranes Eyes General: appearance normal, both eyes and all related structures Neck Neck: Yes full ROM, Yes no lymphadenopathy and Yes supple Resp Auscultation: clear to auscultation bilaterally Cardio Rate: regular rate Rhythm: regular rhythm Peripheral pulses: posterior tibial pulses present bilateral and dorsalis pedis present bilateral GI Palpation (GI): Soft to palpation, nontender and no guarding Auscultation: normal bowel sounds General: Yes no CVA tenderness Back/Spine/Pelvis Back: no CVA tenderness and No back tenderness Skin General skin exam: no rashes or lesions noted Neuro General: patient oriented x3, gait normal, tone normal, moves all extremities, Normal light touch and pain sensation, no focal motor deficits and CN's II-XI intact bilaterally Extrem General: Yes full ROM, Yes no joint enlargement, Yes no pedal edema and Yes normal gait Psych Appearance: grossly normal and well kempt Mental Status: mental status grossly normal Speech and movement: Normal speech and movement present Affect: normal affect Thought process: Normal thought process present Assessment and Plan Assessment & Plan (1) Mixed dyslipidemia: Code(s): E78.2 - Mixed hyperlipidemia Plan: Fasting lipids ordered, continue on rosuvastatin 5 mg daily (2) Regional wall motion abnormality of heart: Code(s): R93.1 - Abnormal findings on diagnostic imaging of heart and coronary circulation Plan: Evaluated by Cardiology . Echocardiogram showed basal inferior/inferoseptal hypokinesis. LVEF is preserved at 55-60%. In the perfusion imaging, there was small apical inferior reversible defect but normal contractility. Thought to be possibly artifactual. Overall, findings could reflect possible coronary disease but he has got absolutely no symptoms at all. Hence no indication to proceed with further workup. Optimal control of blood pressure and cholesterol. (3) Overactive bladder: Code(s): N32.81 - Overactive bladder Plan: Followed by Dr. Hernandez, currently on tamsulosin (4) Multiple sclerosis: Comment: Followed by Dr. Ceja Code(s): G35 - Multiple sclerosis Plan: Currently on teriflunomide and tizanidine as needed for muscle spasm (5) Impaired fasting glucose: Code(s): R73.01 - Impaired fasting glucose Plan: Your fasting blood sugars the past were elevated above 100 mg/dL. Impaired glucose metabolism O2 at risk for developing diabetes mellitus type 2, as well as heart attack and stroke later on. Lifestyle changes at just weight loss, healthy eating habits, and regular exercise are important, and can prevent the progression to diabetes (6) Essential hypertension: Code(s): I10 - Essential (primary) hypertension Plan: Blood pressure at goal of less than 130/80. Continue with current medication. Reinforced importance of following a low sodium diet, getting regular exercise, and lowering stress levels. (7) PAF (paroxysmal atrial fibrillation): Comment: Continued beta-blockers. His thromboembolic score is very low and duration of atrial fibrillation in the past has also been brief. Hence not on any anticoagulation. Code(s): I48.0 - Paroxysmal atrial fibrillation Plan: Continue metoprolol tartrate 50 mg 1 tablet twice a day (8) Annual visit for general adult medical examination with abnormal findings: Code(s): Z00.01 - Encounter for general adult medical examination with abnormal findings Plan: Will check appropriate labs. Recommended dental visit every 6 months and regular eye exams, at least every 2 years. Take adequate calcium in diet and vitamin-D 3 at 2000 IU per cap once a day, in addition to weight-bearing exercises to help maintain good muscle tone and weight control. Instructed to do self testicular exam check for any mass. Up-to-date with his screening colonoscopy due again in 2026. Reminded to get his yearly flu shot, and advised to get COVID booster once available, advised as well to get his Shingrix vaccination for prevention of shingles Coding Level of Care Code Est Pt Prev Care 40-64y(08737) Diagnoses Mixed dyslipidemia E78.2 Regional wall motion abnormality of heart R93.1 Overactive bladder N32.81 Multiple sclerosis G35 Impaired fasting glucose R73.01 Essential hypertension I10 PAF (paroxysmal atrial fibrillation) I48.0 Annual visit for general adult medical examination with abnormal findings Z00.01 Additional Codes BLANCA-7 Assessment Billing - BLANCA-7 Assessment Tool: BLANCA-7 Assessment 89497 ([id number])
[2023-02-20 12:41] VITALS: BP 112/64; PULSE 48; O2SAT 97; BMI 29.6
== END 2023-02-20 13:07 | disposition home or self-care (01) ==
LOC: HO.HMGC 12:21
PROVIDERS: PCP Internal Medicine; Visit Provider Internal Medicine
DX: Z00.00 Encounter for general adult medical examination without abnormal findings (principal); G35 Multiple sclerosis; I10 Essential (primary) hypertension; I48.0 Paroxysmal atrial fibrillation; N32.81 Overactive bladder; E78.2 Mixed hyperlipidemia; R93.1 Abnormal findings on diagnostic imaging of heart and coronary circulation; R73.01 Impaired fasting glucose
CPT/HCPCS: 99396

== ENCOUNTER 2023-02-22 08:53 | Outpatient (REF) | payer OTHER, SELFPAY ==
[2023-02-22 11:59] LABS: Alanine Aminotransferase 28 U/L (0-40); Anion Gap 10 (12-20); Aspartate Amino Transferase 20 U/L (5-37); Blood Urea Nitrogen 14 mg/dL (9-16); Calcium 9.4 mg/dL (8.4-10.2); Carbon Dioxide 28 mmol/L (22-29); Chloride 107 mmol/L (96-108); Cholesterol 181 mg/dL; Estimated Glomerular Filt Rate > 60; Glucose Fasting 106 mg/dL (60-99); HDL Cholesterol 42 mg/dL; LDL Cholesterol Calculated 105 mg/dl; Potassium 4.3 mmol/L (3.3-5.1); Sodium 141 mmol/L (135-145); Triglycerides 171 mg/dL
[2023-02-22 12:28] LABS: Folate 14.6 ng/mL (> or = 4.0); Vitamin B12 746 pg/mL (200-900); Vitamin D 25-OH Total 44.5 ng/mL (>30)
== END 2023-02-22 08:54 | disposition home or self-care (01) ==
LOC: HO.HMGCLDS 08:53
PROVIDERS: PCP Internal Medicine; Visit Provider Internal Medicine
DX: E78.2 Mixed hyperlipidemia (principal); R73.01 Impaired fasting glucose; I10 Essential (primary) hypertension
CPT/HCPCS: 36415; 80048; 80061; 82306; 82607; 82746; 84450; 84460

== ENCOUNTER 2023-10-04 10:34 | Outpatient (REF) | payer OTHER, SELFPAY ==
[2023-10-04 12:15] LABS: Alanine Aminotransferase 19 U/L (0-40); Albumin Level 4.9 g/dL (3.5-5.0); Alkaline Phosphatase 53 U/L (39-117); Anion Gap 15 (12-20); Aspartate Amino Transferase 20 U/L (5-37); Bilirubin Total 0.9 mg/dL (0.0-1.0); Blood Urea Nitrogen 11 mg/dL (9-16); Calcium 9.8 mg/dL (8.4-10.2); Carbon Dioxide 26 mmol/L (22-29); Chloride 101 mmol/L (96-108); Cholesterol 298 mg/dL (<200); Estimated Glomerular Filt Rate > 60; Glucose Fasting 118 mg/dL (60-99); HDL Cholesterol 54 mg/dL (>40); LDL Cholesterol Calculated 201 mg/dL (<100); Potassium 4.4 mmol/L (3.3-5.1); Sodium 138 mmol/L (135-145); Total Protein 7.9 g/dL (6.5-8.0); Triglycerides 217 mg/dL (<150)
[2023-10-04 12:39] LABS: Vitamin D 25-OH Total 55.9 ng/mL (>30)
[2023-10-04 12:52] LABS: Folate 13.8 ng/mL (> or = 4.0); Vitamin B12 1015 pg/mL (200-900)
== END 2023-10-04 10:35 | disposition home or self-care (01) ==
LOC: HO.LAB 10:34
PROVIDERS: PCP Internal Medicine; Visit Provider Internal Medicine
DX: E78.2 Mixed hyperlipidemia (principal); G35 Multiple sclerosis; R73.01 Impaired fasting glucose; I10 Essential (primary) hypertension; I48.0 Paroxysmal atrial fibrillation
CPT/HCPCS: 36415; 80053; 80061; 82306; 82607; 82746

== ENCOUNTER 2023-10-05 11:27 | Outpatient (AMB) | payer OTHER, SELFPAY ==
--- NOTE | 2023-10-05 11:38 | A.OFFVIS_ITS ---
Intake Intake Visit Reasons: 1yr follow up/PVR Intake Note: Patient is Present for Follow Up PVR Urology Medication: Oxybutynin, Tamsulosin Antibiotic Allergies: None Blood Thinners: None PVR: 21 Allergies No Known Allergies [No Known Allergies*] Allergy (Verified 02/20/23 12:51) Medication List - Last Reconciled 10/05/23 by J Luis Hernandez MD amlodipine 10 mg PO DAILY cholecalciferol (vitamin D3) 50 mcg PO DAILY cyanocobalamin (vitamin B-12) 1,000 mcg sublingual DAILY donepezil 5 mg PO BEDTIME folic acid 1 mg PO DAILY lisinopril 5 mg PO DAILY metoprolol tartrate 50 mg PO BID 90 days oxybutynin chloride ER 10 mg PO DAILY 90 days pantoprazole 40 mg PO DAILY rosuvastatin 5 mg PO DAILY tamsulosin 0.4 mg PO BEDTIME 90 days teriflunomide 14 mg PO DAILY tizanidine 4 mg PO BID HPI HPI Comments History of Present Illness Details Daniel Guadalupe is a very pleasant male. He is a patient of Dr Roberson. He is seen for the following urologic conditions - lower urinary tract symptoms - urinary urgency Twelve month follow-up Has been on combination therapy Continue good response to combination oxybutynin and tamsulosin PVR 20 cc Continue yearly review Lower Urinary Tract Symptoms: Background of multiple sclerosis Current visit is for predominate obstructive symptoms. Current treatment includes medication, oxybutynin 10 mg and tamsulosin 0.4 mg Prostate Symptom Score Moderate (9-19), Bother 4. Symptoms include / , incomplete emptying, weak stream, straining, nocturia (>2), and are progressing 10/08 , urgency, frequency, and are improving 05/10 , and are stable. Results from testing include renal/bladder us Yes date 04/06/2017 PVR 20 prostate size 32 Prior Prostate Score unknown. PSA 04/10 1.5, 11/13 2.7, 02/11 2.2 Prostate volume 30-50gm. psychiatric diagnosis Yes SSRI Testing at next visit will include bladder scan [facility] Medical History Lumbar disc disease with radiculopathy Mixed dyslipidemia Symptom of bladder outlet obstruction Macrocytosis without anemia Impaired fasting glucose Dyslipidemia Dislocation of proximal interphalangeal joint of right ring finger Dislocation of proximal interphalangeal joint of right middle finger Dislocation of proximal interphalangeal joint of right index finger Closed dislocation finger, proximal interphalangeal joint, traumatic Multiple sclerosis Essential hypertension PAF (paroxysmal atrial fibrillation) Surgical History Hx of colonoscopy History of back surgery (~12/2019) History of right cataract surgery Family History Father No problems noted. Mother No problems noted. Social History Housing: House Alcohol intake: current Alcohol intake frequency: a few times a week Alcohol type: beer Patient Tobacco Use Status: Former Tobacco user Years Smoked: 40 yrs e-Cigarette/Vaping Use: Never Used Current occupational status: disabled Current occupation: rt handed Cognitive needs: No Hearing needs: No Vision needs: No Office Procedures Post Void Residual Post Residual Void Post Void Residual (PVR): 21 [id number] Void Residual by ultrasound Assessment & Plan Assessment & Plan (1) Symptom of bladder outlet obstruction: Comment: Followed by Dr. Hernandez Code(s): N32.0 - Bladder-neck obstruction (2) Overactive bladder: Code(s): N32.81 - Overactive bladder Plan Continue combination therapy Yearly review Orders: Orders AMB Urinalysis Automated Today Z13.9 - Encounter for screening, unspecified AMB Post Void Residual by ultrasound Today N32.81 - Overactive bladder Medications: Refilled tamsulosin 0.4 mg PO BEDTIME 90 caps 3RF 90 days N32.0 - Bladder-neck obstruction, N40.1 - Benign prostatic hyperplasia with lower urinary tract symptoms, R35.1 - Nocturia oxybutynin chloride ER 10 mg PO DAILY 90 tabs 3RF 90 days Patient Instructions: Imaging studies, laboratory and physical exam results were discussed and reviewed in detail. No major barriers to patient understanding were identified. An opportunity to ask questions regarding the treatment plan was provided. All questions were answered. The patient expressed understanding and agreement with the above treatment plan. The patient is aware they should contact our office by phone for worsening of their current condition or the appearance of new urologic symptoms. Compliance is encouraged with any medications and followup testing that is ordered. It is a privilege to participate in the urologic care of your patient. If you have any questions or concerns regarding treatment for the above conditions, or other urologic issues, please do not hesitate to contact me. The office telephone contact is [phone]. This note is constructed using voice recognition software. While every effort has been made to ensure accuracy veneer clipper helper errors may have been included. Yours sincerely, Dr J Luis Hernandez MD, [facility] - Urology Providers of Expert, Compassionate Care for the Genitourinary System Coding Level of Care Code Est Pt Level 4 (94483) Diagnoses Symptom of bladder outlet obstruction N32.0 Overactive bladder N32.81 CPT Codes Post Residual Void - PVR CPT Code: 57502-Fxpy Void Residual by ultrasound ([id number])
== END 2023-10-05 11:55 | disposition home or self-care (01) ==
PROVIDERS: Visit Provider Urology
DX: N32.0 Bladder-neck obstruction (principal); N32.81 Overactive bladder
CPT/HCPCS: 99213

== ENCOUNTER → 2023-10-05 11:27 | Outpatient (BNVA) | payer OTHER, SELFPAY | PROVIDERS: Visit Provider Urology | DX: N32.0 Bladder-neck obstruction (principal); N32.81 Overactive bladder | CPT/HCPCS: 51798; 99212 ==

== ENCOUNTER 2023-11-28 11:22 | Outpatient (AMB) | payer OTHER, SELFPAY ==
[2023-11-28 11:41] VITALS: BP 122/78; PULSE 63; O2SAT 95; BMI 28.7
--- NOTE | 2023-11-28 11:41 | A.OFFPC_ITS ---
Vital Signs 11/28/23 11:41 Height 5 ft 10 in Weight 200 lb BMI 28.7 BP 122/78 Blood Pressure Location Lt brachial Position Sitting Pulse 63 Pulse Source Pulse Oximeter Pulse Oximetry (%) 95 Oxygen Delivery Method Room Air Intake Visit Reasons: 6 mo. f/u labs Intake Note: Pt is here today for his 6 months f/u labs Allergies No Known Allergies [No Known Allergies*] Allergy (Verified 02/20/23 12:51) Medication List - Last Reconciled 11/28/23 by Cynthia Joseph MD amlodipine 10 mg PO DAILY cholecalciferol (vitamin D3) 50 mcg PO DAILY donepezil 5 mg PO BEDTIME folic acid 1 mg PO DAILY lisinopril 5 mg PO DAILY metoprolol tartrate 50 mg PO BID 90 days oxybutynin chloride ER 10 mg PO DAILY 90 days pantoprazole 40 mg PO DAILY rosuvastatin 5 mg PO DAILY tamsulosin 0.4 mg PO BEDTIME 90 days teriflunomide 14 mg PO DAILY tizanidine 4 mg PO BID Tobacco use date assessed: 11/28/23 Dental Screening Dental Screen Date: 11/28/23 Did you have a dental visit in the last 12 months?: Yes Did you have a dental problem in the last 6 months where you did not have access to dental care?: No Was dental information given to patient?: Patient has dentist HPI 6 mo. f/u labs HPI Details 58-year-old male with dyslipidemia, here today for his follow-up visit. He is currently taking rosuvastatin 5 mg once a day, eats only supper 1 big meal, and snacks during the day. However he has been sedentary for the last 3 months, no regular exercise. Recent fasting labs done showed marked elevation in his lipid levels and fasting glucose. Vitamin B12 was also noted to be high . He has been feeling well however, denies any chest pain, no headache, no lightheadedness, shortness of breath, irregular bowel movements or abdominal pain reported. [facility] Medical History Lumbar disc disease with radiculopathy Mixed dyslipidemia Symptom of bladder outlet obstruction Macrocytosis without anemia Impaired fasting glucose Dyslipidemia Dislocation of proximal interphalangeal joint of right ring finger Dislocation of proximal interphalangeal joint of right middle finger Dislocation of proximal interphalangeal joint of right index finger Closed dislocation finger, proximal interphalangeal joint, traumatic Multiple sclerosis Essential hypertension PAF (paroxysmal atrial fibrillation) Surgical History Hx of colonoscopy History of back surgery (~12/2019) History of right cataract surgery Family History Father No problems noted. Mother No problems noted. Social History Housing: House Alcohol intake: current Alcohol intake frequency: a few times a week Alcohol t ype: beer Patient Tobacco Use Status: Former Tobacco user Years Smoked: 40 yrs e-Cigarette/Vaping Use: Never Used Current occupational status: disabled Current occupation: rt handed Cognitive needs: No Hearing needs: No Vision needs: No Questionnaire PHQ-9 Over the last 2 weeks, how often have you been bothered by any of the following problems? 1. Little interest or pleasure in doing things: not at all 2. Feeling down, depressed, or hopeless: not at all 3. Trouble falling or staying asleep, or sleeping too much: several days 4. Feeling tired or having little energy: several days 5. Poor appetite or overeating: not at all 6. Feeling bad about yourself - or that you are a failure or have let yourself or your family down: not at all 7. Trouble concentrating on things, such as reading the newspaper or watching television: not at all 8. Moving or speaking so slowly that other people could have noticed. Or the opposite - being so fidgety or restless that you have been moving around a lot more than usual: not at all 9. Thoughts that you would be better off or of hurting yourself in some way: not at all Total score: 2 Depression Screening Interpretation: Negative Depression Screening Done: Yes 73411 - PHQ-9 Billing: Yes Source: Developed by Drs. Leoncio Menezes, Marjorie Mcfarland, Efrem Mustafa and colleagues, with an educational jd from [employer]. Thrive Questionnaire Date Thrive assessed: 11/28/23 I am a: Patient What is your living situation today?: I have a steady place to live Within the past 12 months, did the food you bought not last and you didn't have the money to get more?: Never true Within the past 12 months, did you worry whether your food would run out before you got money to buy more?: Never true Do you have trouble paying for medicines?: No Do you have trouble getting transportation to medical appointments?: Yes Do you have trouble paying your heating and electricity bill?: No Do you have trouble taking care of your child, family member or friend?: No Do you have trouble with day-to-day activities such as bathing, preparing meals, shopping, managing finances, etc.?: No Are you currently unemployed and looking for a job?: Yes Are you interested in more education?: No THRIVE Score: 1 AUDIT C Alcohol Use Questionnaire (AUDIT-C) 1. How often do you have a drink containing alcohol?: 2-4 times a month 2. How many drinks containing alcohol do you have on a typical day when you are drinking?: 5 or 6 3. How often do you have six or more drinks on one occasion?: Monthly Total Score: 6 BLANCA-7 AMB Questionnaire BLANCA-7 Date BLANCA - 7 assessed: 11/28/23 Feeling nervous, anxious, or on edge: 1 = Several days Not being able to stop or control worryin = Not at all Worrying too much about different things: 1 = Several days Trouble relaxin = Several days Being so restless that it is hard to sit still: 1 = Several days Becoming easily annoyed or irritable: 0 = Not at all Feeling afraid as if something awful might happen: 0 = Not at all Total BLANCA-7 score (0-4 normal; 5-9 mild; 10-14 moderate; 15-21 severe): 4 Source: Developed by Drs. Leoncio Menezes, Marjorie Mcfarland, Efrem Mustafa and colleagues, with an educational jd from [employer]. BLANCA-7 Assessment Billing BLANCA-7 Assessment Tool: BLANCA-7 Assessment 61441 Review of Systems Const Denies body aches, Denies fatigue, Denies malaise and Denies weakness Eyes Denies change in vision ENT Reports no additional complaints Card Denies chest pain, Denies chest pain with activity, Denies syncope, Denies rapid heart rate, Denies leg edema, Denies lightheadedness, Denies palpitations, Denies dyspnea and Denies dyspnea on exertion Resp Denies cough, Denies dyspnea and Denies dyspnea on exertion GI Denies abdominal pain, Denies melena, Denies hematochezia, Denies change in bowel habits, Denies change in stool character and Reports heartburn (Occasional controlled on pantoprazole) Musc Denies abnormal gait, Denies muscle weakness, Denies numbness, Denies radiating pain into limb and Denies tingling Neuro Denies abnormal gait, Denies syncope, Denies numbness, Denies tingling and Denies weakness Endo Denies fatigue and Denies palpitations Randell/Lymph Reports no additional complaints Aller/Immun Reports no additional complaints Physical exam (Primary Care) Vital Signs: Last Vital Signs Pulse 63 11/28/23 11:41 BP 122/78 11/28/23 11:41 Pulse Ox 95 11/28/23 11:41 Oxygen Delivery Method Room Air 11/28/23 11:41 BMI result Body Mass Index 28.7 Tobacco/Smoking Status: Tobacco use Status Tobacco use date assessed 11/28/23 11/28/23 11:50 Patient Tobacco Use Status Former Tobacco user 11/28/23 11:42 e-Cigarette/Vaping Use Never Used 11/28/23 11:42 PHQ-9: PHQ-9 Score PHQ-9: Total score 4 11/28/23 11:50 Depression Screening Interpretation: Negative Thrive Assessment: Date of Thrive Assessment Date Thrive assessed 11/28/23 11/28/23 11:50 Const Other: Alert oriented x3, no acute distress noted ambulatory with normal gait HENMT Face and sinus: Yes face symmetric Mouth: Normal oral and palatal mucosa present, oropharynx normal and moist mucous membranes Eyes General: appearance normal, both eyes and all related structures Neck Neck: Yes full ROM, Yes no lymphadenopathy and Yes supple Resp Auscultation: clear to auscultation bilaterally Cardio Rate: regular rate Rhythm: regular rhythm Peripheral pulses: posterior tibial pulses present bilateral and dorsalis pedis present bilateral GI Palpation (GI): Soft to palpation, nontender and no guarding Auscultation: normal bowel sounds General: Yes no CVA tenderness Back/Spine/Pelvis Back: no CVA tenderness and No back tenderness Skin General skin exam: no rashes or lesions noted Neuro General: gait normal, tone normal, moves all extremities, Normal light touch and pain sensation, no focal motor deficits and CN's II-XI intact bilaterally Extrem General: Yes full ROM, Yes no joint enlargement, Yes no pedal edema and Yes normal gait Results Reviewed Results Reviewed: Name: Daniel Mcnamara Age/Sex: 58/M : 1965 Unit#: [id number] Attend Dr: Cynthia Joseph MD Re10/04/23 Status: DEP REF Location: .LAB Disch: SPEC : [id number] ALETA: 10/04/23 STATUS: COMP REQ : [id number] RECD: 10/04/[address]: Cynthia Joseph MD COMP: 10/04/23 ENTERED: 10/04/[address]: ORDERED: CMP Fast, Lipid Panel, Vitamin D 25-OH Test Result Flag Reference Sodium 138 135-145 mmol/L Potassium 4.4 3.3-5.1 mmol/L CL 101 96-108 mmol/L CO2 26 22-29 mmol/L Gap 15 12-20 BUN 11 9-16 mg/dL Creat 0.95 0.5-1.4 mg/dL EGFR > 60 NOTE: For -[place] individuals, multiply the result by 1.210. Chronic Kidney Disease: Estimated GFR < 60 mL/min/1.73m2 Severe Kidney Disease: Estimated GFR < 15 mL/min/1.73m2 FBS 118 H 60-99 mg/dL A fasting glucose from 100-125 mg/dl is considered impaired (pre-diabetes). CA 9.8 8.4-10.2 mg/dL Total Bili 0.9 0.0-1.0 mg/dL AST (GOT) 20 5-37 U/L ALT (GPT) 19 0-40 U/L Protein, Total 7.9 6.5-8.0 g/dL Alb 4.9 3.5-5.0 g/dL Triglyceride 217 H <150 mg/dL Desirable Triglyceride: less than 150 mg/dL Borderline High Triglyceride 150-199 mg/dL High Triglyceride: 200-499 mg/dL Very High Triglyceride: greater than or equal to 5OO mg/dL Cholesterol 298 H <200 mg/dL Desirable Cholesterol: less than 200 mg/dL Borderline High Cholesterol: 200-239 mg/dL High Cholesterol: greater than 239 mg/dL LDL Calculated 201 H <100 mg/dL Desirable LDL: less than 100 mg/dL Near Optimal/Above Optimal LDL: 110-129 mg/dL Borderline High LDL: 130-159 mg/dL High LDL: 160-189 mg/dL Very High LDL: greater than or equal to 190 mg/dL HDL 54 >40 mg/dL Desirable HDL: greater than 40 mg/dL Note: This HDL assay may give artificially low results in patients with liver disease. Alk Phos 53 39-117 U/L Vit D 25-OH Tot 55.9 >30 ng/mL Health Based Reference Values* < 20 ng/mL Deficient 20-30 ng/mL Insufficient > 30 ng/mL Sufficient Assessment and Plan Assessment & Plan (1) Mixed dyslipidemia: Code(s): E78.2 - Mixed hyperlipidemia Plan: Increased rosuvastatin dosing to 10 mg once a day. Adherence to low-cholesterol diet stressed and again start doing regular exercise at least 30 minutes of cardio with daily. Repeat fasting lipid levels in January 2024 (2) Impaired fasting glucose: Code(s): R73.01 - Impaired fasting glucose (3) Essential hypertension: Code(s): I10 - Essential (primary) hypertension Plan: Blood pressure at goal of less than 130/80. Continue with current medication. Reinforced importance of following a low sodium diet, getting regular exercise, and lowering stress levels. Orders: Orders Vitamin B12 and Folate 02/12/24 E78.2 - Mixed hyperlipidemia, I10 - Essential (primary) hypertension, R73.01 - Impaired fasting glucose Hemoglobin A1c 02/12/24 E78.2 - Mixed hyperlipidemia, I10 - Essential (primary) hypertension, R73.01 - Impaired fasting glucose Basic Metabolic Panel Fasting 02/12/24 E78.2 - Mixed hyperlipidemia, I10 - Essential (primary) hypertension, R73.01 - Impaired fasting glucose Lipid Panel 02/12/24 E78.2 - Mixed hyperlipidemia, I10 - Essential (primary) hypertension, R73.01 - Impaired fasting glucose Alanine Aminotransferase 02/12/24 E78.2 - Mixed hyperlipidemia, I10 - Essential (primary) hypertension, R73.01 - Impaired fasting glucose Aspartate Amino Transferase 02/12/24 E78.2 - Mixed hyperlipidemia, I10 - Essential (primary) hypertension, R73.01 - Impaired fasting glucose Medications: Changed From rosuvastatin 5 mg PO DAILY 90 tabs 1RF E78.2 - Mixed hyperlipidemia To rosuvastatin 10 mg PO DAILY 90 tabs 1RF E78.2 - Mixed hyperlipidemia Refilled lisinopril 5 mg PO DAILY 90 tabs 1RF metoprolol tartrate 50 mg PO BID 90 days 180 tabs 1RF Coding Level of Care Code Est Pt Level 3 (26644) Diagnoses Mixed dyslipidemia E78.2 Impaired fasting glucose R73.01 Essential hypertension I10 Additional Codes BLANCA-7 Assessment Billing - BLANCA-7 Assessment Tool: BLANCA-7 Assessment 95412 ([id number])
== END 2023-11-28 12:11 | disposition home or self-care (01) ==
PROVIDERS: PCP Internal Medicine; Visit Provider Internal Medicine
DX: E78.2 Mixed hyperlipidemia (principal); R73.01 Impaired fasting glucose; I10 Essential (primary) hypertension
CPT/HCPCS: 99213

== ENCOUNTER 2024-01-09 13:17 | Outpatient (AMB) | payer OTHER, SELFPAY ==
[2024-01-09 13:32] VITALS: BP 130/90; PULSE 96; TEMP 36.8; O2SAT 97; BMI 29.0
--- NOTE | 2024-01-09 13:32 | AM.OFFWIN_ITS ---
Intake Vital Signs 01/09/24 13:32 Height 5 ft 10 in Weight 202 lb BMI 29.0 BP 130/90 H Pulse 96 Pulse Source Pulse Oximeter Temp 98.2 F Temp Source Temporal Artery Scan Pulse Oximetry (%) 97 Oxygen Delivery Method Room Air Intake Visit Reasons: EP allergic reaction face/hands Intake Note: pt is here today for allergic reaction face and hands started monday Patient Tobacco Use Status: Former Tobacco user Allergies No Known Allergies [No Known Allergies*] Allergy (Verified 01/09/24 13:35) Do you need a note to return to daycare/school/sports/work: No HPI EP allergic reaction face/hands HPI Details Noticed swelling of hands and face since yesterday. No difficulty breathing, no drooling. Minimal itchiness. [facility] Medical History Lumbar disc disease with radiculopathy Mixed dyslipidemia Symptom of bladder outlet obstruction Macrocytosis without anemia Impaired fasting glucose Dyslipidemia Dislocation of proximal interphalangeal joint of right ring finger Dislocation of proximal interphalangeal joint of right middle finger Dislocation of proximal interphalangeal joint of right index finger Closed dislocation finger, proximal interphalangeal joint, traumatic Multiple sclerosis Essential hypertension PAF (paroxysmal atrial fibrillation) Surgical History Hx of colonoscopy History of back surgery (~12/2019) History of right cataract surgery Family History Father No problems noted. Mother No problems noted. Social History Housing: House Alcohol intake: current Alcohol intake frequency: a few times a week Alcohol type: beer Patient Tobacco Use Status: Former Tobacco user Years Smoked: 40 yrs e-Cigarette/Vaping Use: Never Used Current occupational status: disabled Current occupation: rt handed Cognitive needs: No Hearing needs: No Vision needs: No Physical Exam Vital Signs: Last Vital Signs Temp 98.2 F 01/09/24 13:32 Pulse 96 01/09/24 13:32 BP 130/90 H 01/09/24 13:32 Pulse Ox 97 01/09/24 13:32 Oxygen Delivery Method Room Air 01/09/24 13:32 BMI result Body Mass Index 29.0 Const General: cooperative and healthy appearing Nutritional Appearance: well nourished Orientation/consciousness: patient oriented x3 Limitations: no limitations HEENT Head: Yes normal to inspection Eyes General: appearance normal, both eyes and all related structures Neck Neck: Yes normal visual inspection Chest Chest palpation & inspection: normal palpation of entire chest wall Resp Effort & Inspection: normal respiratory effort Skin Other: Right and left hand: Minimal swelling over the dorsum of the hand, fingers are swollen without any tenderness. Face: Perioribital swelling on the left side, maxillary sinus swelling. Neuro General: patient oriented x3 Assessment & Plan Assessment & Plan (1) Allergic dermatitis: Code(s): L23.9 - Allergic contact dermatitis, unspecified cause Plan: Tapering dose of prednisone prescribed. If sx do not improve to follow up here. Medications: New prednisone 6 pills by mouth day 1, 6 pills by mouth day 2, 5 pills by mouth day 3, 4 pills by mouth day 4, 3 pills by mouth day 5, 2 pills by mouth day 6, 1 pill by mouth day 7 and 1 pill by mouth day 8. 10 mg PO DAILY 28 tabs 0RF Coding Level of Care Code Est Pt Level 3 (59607) Diagnoses Allergic dermatitis L23.9
== END 2024-01-09 14:12 | disposition home or self-care (01) ==
PROVIDERS: PCP Internal Medicine; Visit Provider Internal Medicine
DX: L23.9 Allergic contact dermatitis, unspecified cause (principal)
CPT/HCPCS: 99213

== ENCOUNTER 2024-01-23 14:00 | Outpatient (AMB) | payer OTHER, SELFPAY ==
[2024-01-23 14:07] VITALS: BP 144/94; PULSE 59; BMI 28.8
--- NOTE | 2024-01-23 14:07 | MHC.OFFVIS ---
Intake Vital Signs 01/23/24 14:07 Height 5 ft 10 in Weight 200 lb 9.93 oz BMI 28.8 BP 144/94 H Blood Pressure Location Lt brachial Position Sitting Pulse 59 Intake Visit Reasons: r/s 1 year followup w/ekg dx: paf Intake Note: 1 year follow up w/ EKG Certified Lactation Educator Required: No Accompanied by: Self / Same As Patient Allergies No Known Allergies [No Known Allergies*] Allergy (Verified 01/09/24 13:35) Medication List - Last Reconciled 01/23/24 by Gabriel Mathews MD amlodipine 10 mg PO DAILY donepezil 5 mg PO BEDTIME folic acid 1 mg PO DAILY lisinopril 5 mg PO DAILY metoprolol tartrate 50 mg PO BID 90 days oxybutynin chloride ER 10 mg PO DAILY 90 days pantoprazole 40 mg PO DAILY prednisone 10 mg PO DAILY rosuvastatin 10 mg PO DAILY tamsulosin 0.4 mg PO BEDTIME 90 days teriflunomide 14 mg PO DAILY tizanidine 4 mg PO BID HPI HPI Comments History of Present Illness Details Daniel is here for follow-up regarding paroxysmal atrial fibrillation. He is on Metoprolol. No recent issues in this regard. Otherwise, no other complaints like angina or shortness of breath or in fact anything cardiac at all. With regard to risk factors, he is got hypertension dyslipidemia. His blood pressure seems to be on the higher side today. Also regard to cholesterol quite high with a last LDL of 201 mg/dL. He states his cholesterol medication dose has been recently increased because of that. Repeat labs are pending. Otherwise, has multiple sclerosis but that has also been stable for quite few years. [facility] Medical History Lumbar disc disease with radiculopathy Mixed dyslipidemia Symptom of bladder outlet obstruction Macrocytosis without anemia Impaired fasting glucose Dyslipidemia Dislocation of proximal interphalangeal joint of right ring finger Dislocation of proximal interphalangeal joint of right middle finger Dislocation of proximal interphalangeal joint of right index finger Closed dislocation finger, proximal interphalangeal joint, traumatic Multiple sclerosis Essential hypertension PAF (paroxysmal atrial fibrillation) Surgical History Hx of colonoscopy History of back surgery (~12/2019) History of right cataract surgery Family History Father No problems noted. Mother No problems noted. Social History Housing: House Alcohol intake: current Alcohol intake frequency: a few times a week Alcohol type: beer Patient Tobacco Use Status: Former Tobacco user Years Smoked: 40 yrs e-Cigarette/Vaping Use: Never Used Current occupational status: disabled Current occupation: rt handed Cognitive needs: No Hearing needs: No Vision needs: No Review of Systems Const Denies weakness ENT Denies dizziness Card Denies chest pain, Denies chest pain with activity, Denies syncope, Denies rapid heart rate, Denies pedal edema, Denies edema, Denies leg edema, Denies lightheadedness, Denies palpitations, Denies dyspnea, Denies dyspnea on exertion and Denies orthopnea Resp Denies cough, Denies dyspnea and Denies dyspnea on exertion GI Denies hematochezia and Denies change in stool character Musc Denies abnormal gait, Denies muscle cramps, Denies muscle weakness, Denies numbness, Denies radiating pain into limb and Denies tingling Neuro Denies abnormal gait, Denies dizziness, Denies syncope, Denies numbness, Denies tingling and Denies weakness Endo Denies palpitations Physical Exam Vital Signs: Last Vital Signs Pulse 59 01/23/24 14:07 BP 144/94 H 01/23/24 14:07 BMI result Body Mass Index 28.8 Const General: comfortable and no acute distress Orientation/consciousness: patient oriented x3 HEENT Other: Unremarkable Head: Yes normal to inspection Neck Neck: Yes normal visual inspection Chest Chest palpation & inspection: normal inspection of the chest Resp Auscultation: clear to auscultation bilaterally Cardio Palpation: normal PMI Heart sounds: S1 normal heart sound present, S2 normal heart sound present, no gallops, no murmurs and no rubs GI Palpation (GI): Soft to palpation Back/Spine/Pelvis Other: unremarkable Skin General skin exam: no rashes or lesions noted Neuro General: patient oriented x3 Extrem General: Yes normal to inspection Psych Mental Status: mental status grossly normal Office Procedures EKG Details: EKG with sinus rhythm, 59/Min; can not exclude old septal infarct but could be from body habitus; [place] [id number], Complete Assessment & Plan Assessment & Plan (1) PAF (paroxysmal atrial fibrillation): Code(s): I48.0 - Paroxysmal atrial fibrillation Plan: Remote, brief atrial fibrillation with no recent issues or episodes. Continue beta-blockers but not on any anticoagulation. (2) Essential hypertension: Code(s): I10 - Essential (primary) hypertension Plan: On amlodipine and lisinopril. Blood pressure seems slightly high today. To be monitored. (3) Regional wall motion abnormality of heart: Code(s): R93.1 - Abnormal findings on diagnostic imaging of heart and coronary circulation Plan: Echocardiogram with basal inferior/inferoseptal hypokinesis. LVEF is preserved at 55-60%. In the perfusion imaging, there was small apical inferior reversible defect but normal contractility. Thought to be possibly artifactual. Clinically, he has got no overt symptoms. He is risk factors do not seem to be well controlled with regard to hypertension/dyslipidemia. In fact LDL recently more than 200 mg/dL. Hence we will proceed with coronary CTA for further evaluation. Discussed with patient and he understands and agrees. (4) Mixed dyslipidemia: Code(s): E78.2 - Mixed hyperlipidemia Plan: Triglycerides 217 mg/dL and LDL 201 mg/dL. Per patient, statin dose has been increased recently. We can await coronary CTA. If any significant plaque burden, will need high-dose statins. Plan Total time spent including review of data, counseling, documentation, coordination of care-32 minutes. Orders: Orders CT Cardiac Coronary Angio Today I25.10 - Atherosclerotic heart disease of [place] coronary artery without angina pectoris Coding Level of Care Code Est Pt Level 4 (81823) Diagnoses PAF (paroxysmal atrial fibrillation) I48.0 Essential hypertension I10 Regional wall motion abnormality of heart R93.1 Mixed dyslipidemia E78.2 CPT Codes EKG - CPT: 39704-[id number], Complete ([id number])
== END 2024-01-23 14:40 | disposition home or self-care (01) ==
PROVIDERS: PCP Internal Medicine; Visit Provider Internal Medicine
DX: I48.0 Paroxysmal atrial fibrillation (principal); I10 Essential (primary) hypertension; R93.1 Abnormal findings on diagnostic imaging of heart and coronary circulation; E78.2 Mixed hyperlipidemia
CPT/HCPCS: 93010; 99214

== ENCOUNTER → 2024-01-23 14:00 | Outpatient (BNVA) | payer OTHER, SELFPAY | PROVIDERS: PCP Internal Medicine; Visit Provider Internal Medicine | DX: I48.0 Paroxysmal atrial fibrillation (principal); I10 Essential (primary) hypertension; E78.5 Hyperlipidemia, unspecified; R93.1 Abnormal findings on diagnostic imaging of heart and coronary circulation; R94.31 Abnormal electrocardiogram [ECG] [EKG]; R00.1 Bradycardia, unspecified | CPT/HCPCS: 93005; 99212 ==

== ENCOUNTER 2024-02-23 11:24 | Outpatient (REF) | payer OTHER, SELFPAY ==
[2024-02-23 11:56] LABS: Estimated Average Glucose 97 mg/dL
[2024-02-23 13:06] LABS: Alanine Aminotransferase 28 U/L (0-40); Anion Gap 16 (12-20); Aspartate Amino Transferase 31 U/L (5-37); Blood Urea Nitrogen 7 mg/dL (9-16); Calcium 9.6 mg/dL (8.4-10.2); Carbon Dioxide 22 mmol/L (22-29); Chloride 101 mmol/L (96-108); Cholesterol 180 mg/dL (<200); Estimated Glomerular Filt Rate > 60; Glucose Fasting 111 mg/dL (60-99); HDL Cholesterol 55 mg/dL (>40); LDL Cholesterol Calculated 94 mg/dL (<100); Potassium 4.4 mmol/L (3.3-5.1); Sodium 135 mmol/L (135-145); Triglycerides 155 mg/dL (<150)
[2024-02-23 13:15] LABS: Folate 16.2 ng/mL (> or = 4.0); Vitamin B12 440 pg/mL (200-900)
== END 2024-02-23 11:25 | disposition home or self-care (01) ==
LOC: HO.LAB 11:24
PROVIDERS: PCP Internal Medicine; Visit Provider Internal Medicine
DX: I10 Essential (primary) hypertension (principal); E78.2 Mixed hyperlipidemia; R73.01 Impaired fasting glucose
CPT/HCPCS: 36415; 80048; 80061; 82607; 82746; 83036; 84450; 84460

== ENCOUNTER 2024-02-27 12:17 | Outpatient (AMB) | payer OTHER, SELFPAY ==
[2024-02-27 12:25] VITALS: BP 138/90; PULSE 62; O2SAT 95; BMI 28.3
--- NOTE | 2024-02-27 12:25 | A.OFFPC_ITS ---
Vital Signs 02/27/24 12:25 Height 5 ft 10 in Weight 197 lb BMI 28.3 BP 138/90 H Blood Pressure Location Rt brachial Position Sitting Pulse 62 Pulse Source Pulse Oximeter Pulse Oximetry (%) 95 Oxygen Delivery Method Room Air Intake Visit Reasons: PE annual physical Intake Note: pt is here for annual exam [employer] Combination Required: No Allergies No Known Allergies [No Known Allergies*] Allergy (Verified 02/27/24 12:53) Medication List - Last Reconciled 02/27/24 by Cynthia Joseph MD amlodipine 10 mg PO DAILY donepezil 5 mg PO BEDTIME folic acid 1 mg PO DAILY lisinopril 5 mg PO DAILY metoprolol tartrate 50 mg PO BID 90 days oxybutynin chloride ER 10 mg PO DAILY 90 days pantoprazole 40 mg PO DAILY rosuvastatin 10 mg PO DAILY tamsulosin 0.4 mg PO BEDTIME 90 days teriflunomide 14 mg PO DAILY tizanidine 4 mg PO BID Tobacco use date assessed: 11/28/23 Dental Screening Dental Screen Date: 11/28/23 HPI PE annual physical HPI Details 58-year-old male here today for his phys ical exam. He has has multiple sclerosis, followed by Dr. Ceja , no new changes currently on teriflunomide and tizanidine as needed for muscle spasms. He sees Dr. Hernandez for his overactive bladder currently on tamsulosin and oxybutynin. He has history of paroxysmal atrial fibrillation, hypertension, dyslipidemia and found to have some regional wall motion abnormality of heart on echocardiogram, currently asymptomatic. He was seen earlier this year by Dr. Mathews advised to continue on metoprolol and amlodipine. His thromboembolic score is very low and duration of atrial fibrillation in the past has also been brief, hence not on any anticoagulation. His rosuvastatin dose was increased to 10 mg on last visit due to markedly elevated LDL cholesterol and recent fasting labs done 3 days ago showed marked improvement in his lipid levels now with LDL cholesterol at 94 mg/dL. He has been feeling well with no complaints at present time. Takes pantoprazole 40 mg daily for heartburn symptoms which are controlled [facility] Medical History (Updated 02/27/24 @ 23:33 by Cynthia Joseph MD) Lumbar disc disease with radiculopathy Mixed dyslipidemia Symptom of bladder outlet obstruction Macrocytosis without anemia Impaired fasting glucose Dyslipidemia Dislocation of proximal interphalangeal joint of right ring finger Dislocation of proximal interphalangeal joint of right middle finger Dislocation of proximal interphalangeal joint of right index finger Closed dislocation finger, proximal interphalangeal joint, traumatic Multiple sclerosis Essential hypertension PAF (paroxysmal atrial fibrillation) Surgical History Hx of colonoscopy History of back surgery (~12/2019) History of right cataract surgery Family History Father No problems noted. Mother No problems noted. Social History Housing: House Alcohol intake: current Alcohol intake frequency: a few times a week Alcohol type: beer Patient Tobacco Use Status: Former Tobacco user Years Smoked: 40 yrs e-Cigarette/Vaping Use: Never Used Current occupational status: disabled Current occupation: rt handed Cognitive needs: No Hearing needs: No Vision needs: No Questionnaire PHQ-9 Over the last 2 weeks, how often have you been bothered by any of the following problems? Depression Screening Interpretation: Negative Depression Screening Done: Yes Source: Developed by Drs. Leoncio Menezes, Efrem Dukes and colleagues, with an educational jd from [employer]. Thrive Questionnaire Date Thrive assessed: 11/28/23 AUDIT C Alcohol Use Questionnaire (AUDIT-C) 1. How often do you have a drink containing alcohol?: 2-4 times a month 2. How many drinks containing alcohol do you have on a typical day when you are drinking?: 5 or 6 3. How often do you have six or more drinks on one occasion?: Monthly Total Score: 6 Score Reviewed/Action Taken: Yes BLANCA-7 AMB Questionnaire BLANCA-7 Date BLANCA - 7 assessed: 11/28/23 Source: Developed by Drs. Leoncio Menezes, Efrem Dukes and colleagues, with an educational jd from [employer]. Review of Systems Const Denies weakness Eyes Denies change in vision and Denies loss of vision ENT Reports no additional complaints and Denies dizziness Card Denies chest pain, Denies chest pain with activity, Denies syncope, Denies pedal edema, Denies lightheadedness, Denies palpitations, Denies dyspnea and Denies dyspnea on exertion Resp Denies cough, Denies dyspnea and Denies dyspnea on exertion GI Denies abdominal pain, Denies melena, Denies bloating, Denies hematochezia, Denies change in bowel habits, Denies change in stool character and Reports heartburn (Controlled on pantoprazole) Reports no additional complaints Musc Denies abnormal gait, Denies muscle cramps, Denies muscle weakness, Denies numbness, Denies radiating pain into limb and Denies tingling Skin/Breast Denies lesions and Denies rash Neuro Denies abnormal gait, Denies dizziness, Denies syncope, Denies lack of coordination, Denies focal weakness, Denies loss of vision, Denies numbness, Denies seizure-like activity, Denies Sensory deficit (Neuro), Denies tingling, Denies tremor(s) and Denies weakness Psych Reports no additional complaints Endo Denies palpitations Randell/Lymph Reports no additional complaints Aller/Immun Reports no additional complaints Physical exam (Primary Care) Vital Signs: Last Vital Signs Pulse 62 02/27/24 12:25 BP 138/90 H 02/27/24 12:25 Pulse Ox 95 02/27/24 12:25 Oxygen Delivery Method Room Air 02/27/24 12:25 BMI result Body Mass Index 28.3 Tobacco/Smoking Status: Tobacco use Status Tobacco use date assessed 11/28/23 02/27/24 12:30 Patient Tobacco Use Status Former Tobacco user 02/27/24 12:30 e-Cigarette/Vaping Use Never Used 02/27/24 12:30 Depression Screening Interpretation: Negative Thrive Assessment: Date of Thrive Assessment Date Thrive assessed 11/28/23 02/27/24 12:30 Const Other: Alert oriented x3, no acute distress noted ambulatory with normal gait HENMT Head: Yes normocephalic Ears: external ears normal, TM's normal bilaterally and EAC's normal General nose exam: Normal external nose present Face and sinus: Yes face symmetric Mouth: Normal oral and palatal mucosa present, oropharynx normal and moist mucous membranes Eyes General: appearance normal, both eyes and all related structures Neck Neck: Yes full ROM, Yes no lymphadenopathy and Yes supple Chest Chest palpation & inspection: normal inspection of the chest Resp Auscultation: clear to auscultation bilaterally Cardio Rate: regular rate Rhythm: regular rhythm Heart sounds: S1 normal heart sound present and S2 normal heart sound present Peripheral pulses: posterior tibial pulses present bilateral and dorsalis pedis present bilateral GI Palpation (GI): Soft to palpation, nontender and no guarding Auscultation: normal bowel sounds General: Yes no CVA tenderness Male General Exam: Yes normal external exam Back/Spine/Pelvis Back: no CVA tenderness and No back tenderness Skin General skin exam: no rashes or lesions noted Neuro General: gait normal, tone normal, moves all extremities, Normal light touch and pain sensation, no focal motor deficits and CN's II-XI intact bilaterally Sensory Exam: No Sensory deficit (Neuro) Extrem General: Yes full ROM, Yes no joint enlargement, Yes no pedal edema and Yes normal gait Psych Appearance: grossly normal and well kempt Mental Status: mental status grossly normal Speech and movement: Normal speech and movement present Affect: normal affect Thought process: Normal thought process present Results Reviewed Results Reviewed: Name: Daniel Mcnamara Age/Sex: 58/M : 1965 Unit#: [id number] Attend Dr: Cynthia Joseph MD Re02/23/24 Status: [facility]P [facility] Disch: SPEC : [id number] ALETA: 02/23/24 STATUS: COMP REQ : [id number] RECD: 02/23/[address]: Cynthia Joseph MD COMP: 02/23/246 ENTERED: 02/23/[address]: ORDERED: Met Prof Fast, AST, ALT, Lipid Panel Test Result Flag Reference Sodium 135 135-145 mmol/L Potassium 4.4 3.3-5.1 mmol/L CL 101 96-108 mmol/L CO2 22 22-29 mmol/L Gap 16 12-20 BUN 7 L 9-16 mg/dL Creat 1.01 0.5-1.4 mg/dL EGFR > 60 NOTE: For -[place] individuals, multiply the result by 1.210. Chronic Kidney Disease: Estimated GFR < 60 mL/min/1.73m2 Severe Kidney Disease: Estimated GFR < 15 mL/min/1.73m2 FBS 111 H 60-99 mg/dL A fasting glucose from 100-125 mg/dl is considered impaired (pre-diabetes). CA 9.6 8.4-10.2 mg/dL AST (GOT) 31 5-37 U/L ALT (GPT) 28 0-40 U/L Triglyceride 155 H <150 mg/dL Desirable Triglyceride: less than 150 mg/dL Borderline High Triglyceride 150-199 mg/dL High Triglyceride: 200-499 mg/dL Very High Triglyceride: greater than or equal to 5OO mg/dL Cholesterol 180 <200 mg/dL Desirable Cholesterol: less than 200 mg/dL Borderline High Cholesterol: 200-239 mg/dL High Cholesterol: greater than 239 mg/dL LDL Calculated 94 <100 mg/dL Desirable LDL: less than 100 mg/dL Near Optimal/Above Optimal LDL: 110-129 mg/dL Borderline High LDL: 130-159 mg/dL High LDL: 160-189 mg/dL Very High LDL: greater than or equal to 190 mg/dL HDL 55 >40 mg/dL Desirable HDL: greater than 40 mg/dL Note: This HDL assay may give artificially low results in patients with liver disease. Assessment and Plan Assessment & Plan (1) Annual visit for general adult medical examination with abnormal findings: Code(s): Z00.01 - Encounter for general adult medical examination with abnormal findings Plan: Recent fasting labs reviewed with patient. Continue with regular dental visit every 6 months and regular eye exams, at least every 2 years. Take adequate calcium in diet and vitamin-D 3 at 2000 IU per cap once a day, in addition to weight-bearing exercises to help maintain good muscle tone and weight control. Instructed to do self-testicular exam, and to check for any mass. Up-to-date with his screening colonoscopy due again in 2026. Up-to-date with his COVID vaccines, reminded to get his yearly flu vaccine, has had 1 dose of Shingrix vaccine, reminded to get her 2nd dose soon as possible, up-to-date with his Tdap (2) Essential hypertension: Code(s): I10 - Essential (primary) hypertension Plan: Blood pressure goal is less than 130/80. Continue with amlodipine 10 mg daily and lisinopril 5 mg daily as well as metoprolol 50 mg 1 tablet twice a day. Reinforced importance of following a low sodium diet, getting regular exercise, and lowering stress levels. (3) Mixed dyslipidemia: Code(s): E78.2 - Mixed hyperlipidemia Plan: Reviewed recent fasting lipid profile with patient with levels now within normal limits . Continue with rosuvastatin 10 mg daily , in addition to adherence to low-cholesterol diet and regular exercise, at least 30 minutes 3 to 4 times a week. Advised patient to make healthy food choices, eat more fruits, vegetables, whole grains, wild caught fish and low-fat dairy. Limit amount of meat and fried or fatty food products, as well as processed foods and fast foods. Follow-up scheduled with repeat fasting lipid panel in 6 months. (4) Impaired fasting glucose: Code(s): R73.01 - Impaired fasting glucose Plan: Your fasting blood sugars were elevated above 100 mg/dL. Impaired glucose metabolism increases year risk for developing diabetes mellitus type 2, as well as heart attack and stroke later on. Lifestyle changes at just weight loss, healthy eating habits, and regular exercise are important, and can prevent the progression to diabetes (5) Multiple sclerosis: Comment: Followed by Dr. Ceja Code(s): G35 - Multiple sclerosis Plan: Stable, currently followed by Neurology, on teriflunomide and tizanidine (6) Overactive bladder: Code(s): N32.81 - Overactive bladder Plan: Followed by Urology, currently on tamsulosin and oxybutynin Orders: Orders Alanine Aminotransferase 08/18/24 E78.2 - Mixed hyperlipidemia, I10 - Essential (primary) hypertension, R73.01 - Impaired fasting glucose Lipid Panel 08/18/24 E78.2 - Mixed hyperlipidemia, I10 - Essential (primary) hypertension, R73.01 - Impaired fasting glucose Hemoglobin A1c 08/18/24 E78.2 - Mixed hyperlipidemia, I10 - Essential (primary) hypertension, R73.01 - Impaired fasting glucose Aspartate Amino Transferase 08/18/24 E78.2 - Mixed hyperlipidemia, I10 - Essential (primary) hypertension, R73.01 - Impaired fasting glucose Basic Metabolic Panel Fasting 08/18/24 E78.2 - Mixed hyperlipidemia, I10 - Essential (primary) hypertension, R73.01 - Impaired fasting glucose Coding Level of Care Code Est Pt Prev Care 40-64y([id number]) Diagnoses Annual visit for general adult medical examination with abnormal findings Z00.01 Essential hypertension I10 Mixed dyslipidemia E78.2 Impaired fasting glucose R73.01 Multiple sclerosis G35 Overactive bladder N32.81
== END 2024-02-27 13:04 | disposition home or self-care (01) ==
PROVIDERS: Visit Provider Internal Medicine
DX: Z00.00 Encounter for general adult medical examination without abnormal findings (principal); I10 Essential (primary) hypertension; E78.2 Mixed hyperlipidemia; G35 Multiple sclerosis; R73.01 Impaired fasting glucose; N32.81 Overactive bladder
CPT/HCPCS: 99396

== ENCOUNTER 2024-08-26 13:07 | Outpatient (AMB) | payer OTHER, SELFPAY ==
[2024-08-26 13:53] VITALS: BP 168/100; PULSE 61; O2SAT 98; BMI 28.4
--- NOTE | 2024-08-26 13:53 | A.OFFPC_ITS ---
Vital Signs 08/26/24 13:53 Height 5 ft 10 in Weight 198 lb BMI 28.4 BP 168/100 H Blood Pressure Location Lt brachial Position Sitting Pulse 61 Pulse Source Pulse Oximeter Pulse Oximetry (%) 98 Oxygen Delivery Method Room Air Comment Patient forgot to take his blood pressure medicines this morning prior to c Intake Visit Reasons: 6 Month F/U Intake Note: Pt is here today for his 6mo. Allergies No Known Allergies [No Known Allergies*] Allergy (Verified 08/26/24 14:07) Medication List - Last Reconciled 08/26/24 by Cynthia Joseph MD amlodipine 10 mg PO DAILY cholecalciferol (vitamin D3) 50 mcg PO DAILY donepezil 5 mg PO BEDTIME folic acid 1 mg PO DAILY lisinopril 5 mg PO DAILY metoprolol tartrate 50 mg PO BID 90 days oxybutynin chloride ER 10 mg PO DAILY 90 days pantoprazole 40 mg PO DAILY rosuvastatin 10 mg PO DAILY tamsulosin 0.4 mg PO BEDTIME 90 days teriflunomide 14 mg PO DAILY tizanidine 4 mg PO BID Tobacco use date assessed: 08/26/24 Dental Screening Dental Screen Date: 08/26/24 Did you have a dental visit in the last 12 months?: Yes Did you have a dental problem in the last 6 months where you did not have access to dental care?: No Was dental information given to patient?: Patient has dentist HPI 6 Month F/U HPI Details 59-year-old male with past medical histo ry significant for multiple sclerosis, followed by Dr. Ceja; overactive bladder followed by Urology; has paroxysmal atrial fibrillation, followed by Dr. Mathews, here today for follow-up on his hypertension and dyslipidemia. Currently on amlodipine 10 mg daily, lisinopril 5 mg once a day, and metoprolol tartrate 50 mg twice a day. He also takes rosuvastatin 10 mg once a day for his elevated cholesterol levels. [facility] Medical History Lumbar disc disease with radiculopathy Mixed dyslipidemia Symptom of bladder outlet obstruction Macrocytosis without anemia Impaired fasting glucose Dyslipidemia Dislocation of proximal interphalangeal joint of right ring finger Dislocation of proximal interphalangeal joint of right middle finger Dislocation of proximal interphalangeal joint of right index finger Closed dislocation finger, proximal interphalangeal joint, traumatic Multiple sclerosis Essential hypertension PAF (paroxysmal atrial fibrillation) Surgical History Hx of colonoscopy History of back surgery (~12/2019) History of right cataract surgery Family History Father No problems noted. Mother No problems noted. Social History Housing: House Alcohol intake: current Alcohol intake frequency: a few times a week Alcohol type: beer Patient Tobacco Use Status: Former Tobacco user Years Smoked: 40 yrs e-Cigarette/Vaping Use: Never Used Current occupational status: disabled Current occupation: rt handed Cognitive needs: No Hearing needs: No Vision needs: No Questionnaire PHQ-9 Over the last 2 weeks, how often have you been bothered by any of the following problems? Depression Screening Interpretation: Negative Depression Screening Done: Yes Source: Developed by Drs. Leoncio Menezes, Efrem Dukes and colleagues, with an educational jd from [employer]. Thrive Questionnaire Date Thrive assessed: 11/28/23 BLANCA-7 AMB Questionnaire BLANCA-7 Date BLANCA - 7 assessed: 11/28/23 Source: Developed by Drs. Leoncio Menezes, Efrem Dukes and colleagues, with an educational jd from [employer]. Review of Systems Const Denies fatigue, Denies headache(s) and Denies weakness Eyes Denies change in vision and Denies loss of vision ENT Reports no additional complaints, Denies dizziness and Denies headache(s) Card Denies chest pain, Denies chest pain with activity, Denies syncope, Denies pedal edema, Denies lightheadedness, Denies palpitations, Denies dyspnea and Denies dyspnea on exertion Resp Denies cough, Denies dyspnea and Denies dyspnea on exertion GI Denies abdominal pain, Denies melena, Denies bloating, Denies hematochezia, Denies change in bowel habits, Denies change in stool character and Reports h eartburn (Controlled on pantoprazole) Reports no additional complaints Musc Denies abnormal gait, Denies muscle cramps, Denies muscle weakness, Denies numbness, Denies radiating pain into limb and Denies tingling Skin/Breast Denies lesions and Denies rash Neuro Denies abnormal gait, Denies dizziness, Denies syncope, Denies headache(s), Denies lack of coordination, Denies focal weakness, Denies loss of vision, Denies numbness, Denies seizure-like activity, Denies Sensory deficit (Neuro), Denies tingling, Denies tremor(s) and Denies weakness Psych Reports no additional complaints Endo Denies fatigue and Denies palpitations Randell/Lymph Reports no additional complaints Aller/Immun Reports no additional complaints Physical exam (Primary Care) Vital Signs: Last Vital Signs Pulse 61 08/26/24 13:53 BP 168/100 H 08/26/24 13:53 Pulse Ox 98 08/26/24 13:53 Oxygen Delivery Method Room Air 08/26/24 13:53 BMI result Body Mass Index 28.4 Tobacco/Smoking Status: Tobacco use Status Tobacco use date assessed 08/26/24 08/26/24 14:01 Patient Tobacco Use Status Former Tobacco user 08/26/24 13:54 e-Cigarette/Vaping Use Never Used 08/26/24 13:54 Depression Screening Interpretation: Negative Thrive Assessment: Date of Thrive Assessment Date Thrive assessed 11/28/23 08/26/24 13:54 Const Other: Alert oriented x3, no acute distress noted ambulatory with normal gait HENMT Head: Yes normocephalic Ears: external ears normal, TM's normal bilaterally and EAC's normal General nose exam: Normal external nose present Face and sinus: Yes face symmetric Mouth: Normal oral and palatal mucosa present, oropharynx normal and moist mucous membranes Eyes General: appearance normal, both eyes and all related structures Neck Neck: Yes full ROM, Yes no lymphadenopathy and Yes supple Chest Chest palpation & inspection: normal inspection of the chest Resp Auscultation: clear to auscultation bilaterally Cardio Rate: regular rate Rhythm: regular rhythm Heart sounds: S1 normal heart sound present and S2 normal heart sound present Peripheral pulses: posterior tibial pulses present bilateral and dorsalis pedis present bilateral GI Palpation (GI): Soft to palpation, nontender and no guarding Auscultation: normal bowel sounds General: Yes no CVA tenderness Male General Exam: Yes normal external exam Back/Spine/Pelvis Back: no CVA tenderness and No back tenderness Skin General skin exam: no rashes or lesions noted Neuro General: gait normal, tone normal, moves all extremities, Normal light touch and pain sensation, no focal motor deficits and CN's II-XI intact bilaterally Sensory Exam: No Sensory deficit (Neuro) Extrem General: Yes full ROM, Yes no joint enlargement, Yes no pedal edema and Yes normal gait Psych Appearance: grossly normal and well kempt Mental Status: mental status grossly normal Speech and movement: Normal speech and movement present Affect: normal affect Thought process: Normal thought process present Office Procedures Flu Questionnaire Does the patient have a severe egg allergy?: No Does the patient have severe life threatening allergies?: No Does the patient have a fever or illness today?: No Has the patient ever had Guillain-[place] Syndrome?: No Has the patient ever had any past reaction to a flu shot?: No Immunizations Fluarix Triv [id number] (PF) 45 mcg (15 mcg x 3)/0.5 mL IM syringe Performing Provider: Cynthia Joseph MD Performing Location: [facility] Administered by: Yumiko Ballard CMA on 08/26/24 14:36 Dose Route Admin Location Dispensed Lot Number Expiration Date [facility] [employer]oner [employer] Technician 0.5 mL IM Left Deltoid 0.5 mL [id number] 04/21/25 [id number] [employer] VIS Given Date VIS Provided VIS Publication Date 08/26/24 Single Vaccine 21 Eligibility Eligibility Date Funding Source Not [facility] Eligible 08/26/24 Private Coding Level of Care Code Est Pt Level 4 (94000) Complex EM visit Add On G2211 Diagnoses Essential hypertension I10 Impaired fasting glucose R73.01 Mixed dyslipidemia E78.2 History of vitamin D deficiency Z86.39 Needs flu shot Z23 Assessment & Plan Assessment & Plan (1) Essential hypertension: Code(s): I10 - Essential (primary) hypertension Category: Medical Plan: Patient states that he forgot to take his blood pressure medicine this morning prior to coming for his visit. Advised to go home and take his antihypertensive medications when he gets home right away. Reinforced importance of following a low-salt diet and getting regular exercise. (2) Impaired fasting glucose: Code(s): R73.01 - Impaired fasting glucose Category: Medical Plan: Your previous fasting blood sugars were elevated above 100 mg/dL. Impaired glucose metabolism increases the risk for developing diabetes mellitus type 2, as well as heart attack and stroke later on. Lifestyle changes that promotes weight loss, healthy eating habits, and regular exercise are important, and can prevent the progression to diabetes (3) Mixed dyslipidemia: Code(s): E78.2 - Mixed hyperlipidemia Category: Medical Plan: Reviewed last fasting lipid profile with patient with levels much improved, . Continue rosuvastatin 10 mg once a day , in addition to adherence to low- cholesterol diet and regular exercise, at least 30 minutes 3 to 4 times a week. Advised patient to make healthy food choices, eat more fruits, vegetables, whole grains, wild caught fish and low-fat dairy. Limit amount of meat and fried or fatty food products, as well as processed foods and fast foods. Get fasting labs done to check lipids. (4) History of vitamin D deficiency: Code(s): Z86.39 - Personal history of other endocrine, nutritional and metabolic disease Plan: Ordered vitamin-D level checked (5) Needs flu shot: Code(s): Z23 - Encounter for immunization Plan: Flu vaccine given today Orders: Orders Basic Metabolic Panel Fasting 08/26/24 E78.2 - Mixed hyperlipidemia, I10 - Essential (primary) hypertension, R73.01 - Impaired fasting glucose, R79.89 - Other specified abnormal findings of blood chemistry, Z86.39 - Personal history of other endocrine, nutritional and metabolic disease Hemoglobin A1c 08/26/24 E78.2 - Mixed hyperlipidemia, I10 - Essential (primary) hypertension, R73.01 - Impaired fasting glucose, R79.89 - Other specified abnormal findings of blood chemistry, Z86.39 - Personal history of other endocrine, nutritional and metabolic disease Vitamin D 25-OH Total 08/26/24 E78.2 - Mixed hyperlipidemia, I10 - Essential (primary) hypertension, R73.01 - Impaired fasting glucose, R79.89 - Other specified abnormal findings of blood chemistry, Z86.39 - Personal history of other endocrine, nutritional and metabolic disease Lipid Panel 08/26/24 E78.2 - Mixed hyperlipidemia, I10 - Essential (primary) hypertension, R73.01 - Impaired fasting glucose, R79.89 - Other specified abnormal findings of blood chemistry, Z86.39 - Personal history of other endocrine, nutritional and metabolic disease Alanine Aminotransferase 08/26/24 E78.2 - Mixed hyperlipidemia, I10 - Essential (primary) hypertension, R73.01 - Impaired fasting glucose, R79.89 - Other sp ecified abnormal findings of blood chemistry, Z86.39 - Personal history of other endocrine, nutritional and metabolic disease Aspartate Amino Transferase 08/26/24 E78.2 - Mixed hyperlipidemia, I10 - Essential (primary) hypertension, R73.01 - Impaired fasting glucose, R79.89 - Other specified abnormal findings of blood chemistry, Z86.39 - Personal history of other endocrine, nutritional and metabolic disease Vitamin B12 and Folate 08/26/24 E78.2 - Mixed hyperlipidemia, I10 - Essential (primary) hypertension, R73.01 - Impaired fasting glucose, R79.89 - Other specified abnormal findings of blood chemistry, Z86.39 - Personal history of other endocrine, nutritional and metabolic disease Influenza 0301-4025 Immunization 08/26/24 Z23 - Encounter for immunization
== END 2024-08-26 14:40 | disposition home or self-care (01) ==
LOC: HO.HMCC 13:10
PROVIDERS: PCP Internal Medicine; Visit Provider Internal Medicine
DX: I10 Essential (primary) hypertension (principal); R73.01 Impaired fasting glucose; E78.2 Mixed hyperlipidemia; Z86.39 Personal history of other endocrine, nutritional and metabolic disease; Z23 Encounter for immunization

== ENCOUNTER → 2024-08-26 13:07 | Outpatient (BNVA) | payer OTHER, SELFPAY | PROVIDERS: PCP Internal Medicine; Visit Provider Internal Medicine | DX: Z23 Encounter for immunization (principal); I10 Essential (primary) hypertension; R73.01 Impaired fasting glucose; E78.2 Mixed hyperlipidemia; Z86.39 Personal history of other endocrine, nutritional and metabolic disease | CPT/HCPCS: 90471; 90656; 99212 ==

== ENCOUNTER 2024-09-02 12:16 | Outpatient (REF) | payer OTHER, SELFPAY ==
[2024-09-02 13:33] LABS: Estimated Average Glucose 97 mg/dL; Hemoglobin A1C 130.3667 umol/L; Total Hemoglobin (HGBA1C) 4256.5833 umol/L
[2024-09-02 14:00] LABS: Alanine Aminotransferase 49 U/L (0-40); Anion Gap 13 (12-20); Aspartate Amino Transferase 38 U/L (5-37); Blood Urea Nitrogen 8 mg/dL (9-16); Calcium 9.9 mg/dL (8.4-10.2); Carbon Dioxide 28 mmol/L (22-29); Chloride 106 mmol/L (96-108); Cholesterol 171 mg/dL (<200); Estimated Glomerular Filt Rate > 60; Glucose Fasting 82 mg/dL (60-99); HDL Cholesterol 67 mg/dL (>40); LDL Cholesterol Calculated 89 mg/dL (<100); Potassium 5.3 mmol/L (3.3-5.1); Sodium 142 mmol/L (135-145); Triglycerides 77 mg/dL (<150)
[2024-09-02 14:30] LABS: Folate 16.4 ng/mL (> or = 4.0); Vitamin B12 311 pg/mL (200-900)
== END 2024-09-02 12:17 | disposition home or self-care (01) ==
LOC: HO.HMGCLDS 12:16
PROVIDERS: PCP Internal Medicine; Visit Provider Internal Medicine
DX: E78.2 Mixed hyperlipidemia (principal); R73.01 Impaired fasting glucose; I10 Essential (primary) hypertension; Z86.39 Personal history of other endocrine, nutritional and metabolic disease; R79.89 Other specified abnormal findings of blood chemistry
CPT/HCPCS: 36415; 80048; 80061; 82306; 82607; 82746; 83036; 84450; 84460

== ENCOUNTER 2024-10-08 10:47 | Outpatient (AMB) | payer OTHER, SELFPAY ==
--- NOTE | 2024-10-08 11:08 | A.OFFVIS_ITS ---
Intake Visit Reasons: 1Y PVR Intake Note: Patient is Present for Follow Up PVR Urology Medication: Oxybutynin, Tamsulosin Antibiotic Allergies: None Blood Thinners: None PVR: 21ML'S TODAY'S PVR:0ML'S Settlement Clerk Required: No Allergies No Known Allergies [No Known Allergies*] Allergy (Verified 10/08/24 11:09) HPI Comments Details: Daniel Guadalupe is a very pleasant male. He is a patient of Dr Roberson. He is seen for the following urologic conditions - lower urinary tract symptoms - urinary urgency Twelve month follow-up Has been on combination therapy PVR 0 cc Continue good response to combination oxybutynin and tamsulosin MS has been stable We will cut back oxybutynin to try p.r.n. Lower Urinary Tract Symptoms: Background of multiple sclerosis Current visit is for predominate obstructive symptoms. Current treatment includes medication, oxybutynin 10 mg and tamsulosin 0.4 mg Prostate Symptom Score Moderate (9-19), Bother 4. Symptoms include / , incomplete emptying, weak stream, straining, nocturia (>2), and are progressing 10/08 , urgency, frequency, and are improving 05/10 , and are stable. Results from testing include renal/bladder us Yes date 04/06/2017 PVR 20 prostate size 32 Prior Prostate Score unknown. PSA 04/10 1.5, 11/13 2.7, 02/11 2.2 Prostate volume 30-50gm. psychiatric diagnosis Yes SSRI Testing at next visit will include bladder scan [facility] Medical History Lumbar disc disease with radiculopathy Mixed dyslipidemia Symptom of bladder outlet obstruction Macrocytosis without anemia Impaired fasting glucose Dyslipidemia Dislocation of proximal interphalangeal joint of right ring finger Dislocation of proximal interphalangeal joint of right middle finger Dislocation of proximal interphalangeal joint of right index finger Closed dislocation finger, proximal interphalangeal joint, traumatic Multiple sclerosis Essential hypertension PAF (paroxysmal atrial fibrillation) Surgical History Hx of colonoscopy History of back surgery (~12/2019) History of right cataract surgery Family History Father No problems noted. Mother No problems noted. Social History Housing: House Alcohol intake: current Alcohol intake frequency: a few times a week Alcohol type: beer Patient Tobacco Use Status: Former Tobacco user Years Smoked: 40 yrs e-Cigarette/Vaping Use: Never Used Current occupational status: disabled Current occupation: rt handed Cognitive needs: No Hearing needs: No Vision needs: No Review of Systems Const Denies chills and Denies fever(s) Card Reports no additional complaints and Denies syncope Resp Denies cough GI Denies abdominal pain and Denies heartburn Reports as per HPI and Denies change in libido Neuro Denies syncope Psych Denies change in libido Endo Denies change in libido Physical Exam Const General: cooperative, healthy appearing, comfortable and no acute distress Orientation/consciousness: patient oriented x3 HEENT Face and sinus: Yes normal facial exam Mouth: moist mucous membranes Neck Neck: Yes normal visual inspection, Yes full ROM and Yes trachea midline Chest Chest palpation & inspection: normal inspection of the chest Resp Effort & Inspection: normal respiratory effort, able to speak in complete sentences and no respiratory distress GI Inspection: Yes normal to inspection Back/Spine/Pelvis Cervical Spine: normal cervical lordosis Thoracic/Lumbar Spine: thoracic and lumbar spine normal to inspection Skin General skin exam: no rashes or lesions noted Neuro General: patient oriented x3, gait normal, tone normal and moves all extremities Extrem General: Yes normal to inspection and Yes capillary refill normal Office Procedures Post Void Residual Post Residual Void Post Void Residual (PVR): 0 [id number] Void Residual by ultrasound Results AMB Urinalysis, Automated UA Leukoctes 0 Jael/uL Last Edit by CARLOS Gallagher on 10/08/24 11:51 UA Nitrite Negative Last Edit by CARLOS Gallagher on 10/08/24 11:51 UA Urobilinogen 0.2 mg/dL Last Edit by CARLOS Gallagher on 10/08/24 11:5 1 UA Protein 30 mg/dL Last Edit by CARLOS Gallagher on 10/08/24 11:51 UA pH 5.0 Last Edit by CARLOS Gallagher on 10/08/24 11:51 UA Blood 0 Rajendra/uL Last Edit by CARLOS Gallagher on 10/08/24 11:51 UA Specific [place] 1.030 Last Edit by CARLOS Gallagher on 10/08/24 11: 51 UA Ketone Positive Last Edit by CARLOS Gallagher on 10/08/24 11:51 UA Bilirubin 1 mg/dL Last Edit by CARLOS Gallagher on 10/08/24 11:51 UA Glucose 0 mg/dL Last Edit by CARLOS Gallagher on 10/08/24 11:51 Assessment & Plan Assessment & Plan Orders: Orders AMB Urinalysis Automated Today Z13.9 - Encounter for screening, unspecified Coding CPT Codes Post Residual Void - PVR CPT Code: 11004-Rzrm Void Residual by ultrasound ([id number])
== END 2024-10-08 11:56 | disposition home or self-care (01) ==
PROVIDERS: PCP Internal Medicine; Visit Provider Urology
DX: Z13.9 Encounter for screening, unspecified (principal)

== ENCOUNTER → 2024-10-08 10:47 | Outpatient (BNVA) | payer OTHER, SELFPAY | PROVIDERS: PCP Internal Medicine; Visit Provider Urology | DX: N32.81 Overactive bladder (principal) | CPT/HCPCS: 51798; 81003; 99212 ==

== ENCOUNTER 2025-05-14 10:25 | Outpatient (REF) | payer OTHER, SELFPAY ==
--- NOTE | ~2025-05-14 | MR_ITS ---
EXAMINATION: MR BRAIN WITHOUT AND WITH CONTRAST CLINICAL INFORMATION: MS, follow-up . Patient denies any current symptoms. COMPARISON: 08/31/2022, 02/21/2018. TECHNIQUE: Multiplanar, multisequence MRI of the brain was obtained before and after the intravenous administration of 10 mL Gadavist. Examination performed on a 1.5 Etta Siemens high-field unit. FINDINGS: There is no diffusion restriction. There is no intracranial hemorrhage, acute infarction, mass effect, or edema. Ventricles, sulci, and cisterns are diffusely somewhat prominent reflecting age advanced cerebral and cerebellar volume loss. Redemonstrated is a zone of DWI bright signal in the left mesial parietal lobe, stable in appearance from previous exam, which corresponds to a gyriform T2 hyperintensity on FLAIR/T2-weighted imaging reflecting T2 shine through, unchanged in appearance. Redemonstrated are extensive regions of patchy and confluent FLAIR/T2 signal hyperintensity within the subcortical and deeper periventricular white matter of both cerebral hemispheres with foci of low T1 signal, particularly in the left periatrial region and within the centrum semiovale and periventricular regions bilaterally, similar in appearance to the previous exam. Encephalomalacia in the left periatrial region is similar to previous exam without definite progression. Patchy T2 hyperintensity in the central lenin is similar. No definite new lesions are seen and there is no definite evidence for abnormal enhancement to suggest active demyelination. Overall stable pattern and distribution of lesions, consistent with chronic demyelination. No abnormal intra or extra-axial enhancement. Midline structures appear normally formed. Moderate atrophy of the corpus callosum. The pituitary gland appears normal. Posterior fossa structures appear normal. Cerebellar tonsils are appropriately located. Major flow voids are preserved within the skull base. The globes and orbital contents demonstrate no abnormalities. There has been a right lens replacement. Paranasal sinuses demonstrate moderate patchy mucosal thickening seen throughout the ethmoid sinuses, frontal sinuses, and dependent left greater than right maxillary sinuses. No air-fluid levels. The mastoids and tympanic cavities are normally aerated. Extracranial soft tissues demonstrate no abnormalities. No suspicious bone marrow changes are evident. Atlantoaxial joint demonstrates mild to moderate degenerative changes. MR/MR head/brain wo/w con IMPRESSION: 1. No evidence of intracranial hemorrhage or acute infarction. No mass effect or edema. 2. Stable somewhat extensive pattern of demyelinating disease throughout both cerebral hemispheres and the central lenin. No new or enhancing lesions identified to suggest active demyelination. 3. Stable and similar pattern of age advanced volume loss with similar ex vacuo dilatation of the left lateral ventricular atrium. 4. Mild to moderate paranasal sinus disease. Electronically signed by: Eloy Farmer MD 05/14/2025 12:20 PM EDT
--- OUTSIDE RECORDS SUMMARY | 2025-05-14 11:34 | XMS_ITS | Encounter Summary ---
Author Organization [employer] Address [address] [place] [address] [address] [place] [address] Care Team Providers Care Claim Adjuster Name Role Phone Unavailable Primary Care Provider Unavailabl e Encounter Details Date Type Department Care Team (Latest Contact Info) Description 06/03/[address] [facility] CONVERSIONS Dental, Provider, DDS Social History Tobacco Use Types Packs/Day Years Used Date Smoking Tobacco: Never Assessed Sex and Gender Information Value Date Recorded Sex Assigned at Male 08/22/2022 10:23 AM EDT Legal Sex Male 10:23 AM EDT Gender Identity Male 08/22/2022 10:23 AM EDT Sexual Orientation Straight 08/22/2022 10 :23 AM EDT documented as of this encounter Plan of Treatment Not on file documented as of this encounter Visit Diagnoses Not on filedocumented in this encounter
--- OUTSIDE RECORDS SUMMARY | 2025-05-14 11:34 | XMS_ITS | Clinical Summary ---
Author Organization [facility] Address [address] [place] [address] Care Team Providers Care Pre Coder Name Role Phone Cynthia Joseph MD Primary Care Provider [phone] Social History Tobacco Use Types Packs/Day Years Used Date Smoking Tobacco: Never Assessed Sex and Gender Information Value Date Recorded Sex Assigned at Not on file Gender Identity Not on file Sexual Orientation Not on file Plan of Treatment Health Maintenance Due Date Last Done Comments Hepatitis C Screening 1964 COVID-19 Vaccine (#1) 01/08/1965 Depression Screening 1976 Preventative Health Evaluation 1982 DTap / Tdap / Td (1 - Tdap) 1983 Colon Cancer Screening (Colonoscopy) 2009 Shingrix-Zoster Vaccine (1 of 2) 2014 Influenza Vaccine (#1) 2025 RSV Adult > 60+ Yrs or Pregn ant (1 - 1-dose 75+ series) 2039 Hepatitis B Vaccines Aged Out No long er eligible based on patient's age to complete this topic Pneumococcal Vaccine Aged Out No long er eligible based on patient's age to complete this topic RSV Ped < 20 months Aged Out No longe r eligible based on patient's age to complete this topic Care Teams Pre Coder Relationship Specialty Start Date End Date Cynthia Joseph MD [address] [place] [address] PCP - General Internal Medicine 02/03/20
--- OUTSIDE RECORDS SUMMARY | 2025-05-14 11:35 | XMS_ITS | Patient Health Record ---
Author Organization [facility] Address [address] [place] [address] Care Team Providers Care Radiology Technician Name Role Phone Parish Roberson M.D. Primary Care Provider Sadie rachanaLeoncio More Unavailable [phone] Reason For Referral No Information Medications Medication SIG (Take, Route, Frequency, Duration) Notes Start Date End Date Status Aubagio 14 MG 1 tablet Orally Once a day For MS 12/07/2016 Active Metoprolol Tartrate 50 MG TAKE 1 TABLET BY MOUTH TWICE A DAY WITH FOOD Oral for 30 Active Gabapentin 300 MG TAKE ONE CAPSULE BY MOUTH BEFORE BEDTIME FOR 30 DAYS Oral Once a day Active amLODIPine Besylate 2.5 MG TAKE 1 TABLET ONCE A DAY ORALLY FOR 30 DAYS Oral Once a day Active oxyBUTYnin Chloride ER 10 MG TAKE 1 TABLET BY MOUTH EVERY DAY Oral Once a day Active Sertraline HCl 25 MG TAKE 1 TABLET BY MO UTH EVERY DAY Oral Once a day Active Omeprazole 20 MG TAKE 1 TABLET BY MARTHA TH EVERY DAY Oral Once a day Active Vitamin D3 2000 UNIT TAKE ONE CAPSULE BY MOUTH ONCE A DAY WITH DINNER Oral Once a day Active Immunizations Vaccine Route Administration Date Status Comme nts Influenza Unknown 10/05/2018 Refused Social History Tobacco Use: Social History Observation Description Date Details (start date - stop date) Current Smoker NA - NA Tobacco Use/Smoking Question Answer Notes Patient is a current smoker How often do you smoke cigarettes? some days, bu t not every day How many cigarettes a day do you smoke? 5 or les s How soon after you wake up d o you smoke your first cigarette? after 60 minutes Are you interested in quitting? Thinking about q uitting Section Notes: Smoker; occasional beer Smoker; occasional beer--- h e describes heavy drinking over 10 years ago Problems Problem Type SNOMED Code ICD Code Onset Dates Problem Status W/U Status Risk Notes Problem [id number] Gastro-esophagea l reflux disease without esophagitis (K21.9) Active confirmed Problem [id number] Encounter for screening for malignant neoplasm of colon (Z12.11) Active confirmed Problem Screening for malignant neoplasm of rectum (588808491) Encounter for screening for malignant neoplasm of rectum (Z12.12) Active confirmed Problem 41488375 Preprocedural examination (Z01.818) Active confirmed Problem 047251947 Gastroesophageal reflux disease, esophagitis presence not specified (K21.9) Active confirmed Problem 864224147 Esophageal spasm (K22.4) Active confirmed Plan Of Treatment Future Test Test Name Order Date COLONOSCOPY 12/07/2016 UPPER GI ENDOSCOPY 10/05/2018 Insurance Providers Payer Name Payer Address Payer Phone Subscriber Number Group Number Insured Name Patient Relationship to Insured Coverage Start Date Coverage End Date [facility] [address] [address] [place], [place] [id number] [phone] [id number] DON JOHNSON Self - patient is the insured MEDICAID OF [facility] [address] [place] [address] [id number] DON JOHNSON Self - patient is the insured Medical (General) History Medical History History ICD Code Hypertension Denies DE,DM,CVA,Lung disease,renal dise ase Multiple sclerosis--has some right leg w eakness Irregular heartbeat--sees Dr. Wilfredo holden Surgical History Surgery Date(Month/Year) cataract-lens implants x 2-right
== END 2025-05-14 10:26 | disposition home or self-care (01) ==
LOC: HO.MRI 10:25
PROVIDERS: PCP Internal Medicine; Visit Provider Registered Nurse
DX: G35 Multiple sclerosis (principal)
CPT/HCPCS: 70553; A9585

== ENCOUNTER → 2025-05-14 10:31 | Outpatient (BNV) | payer OTHER, SELFPAY | PROVIDERS: PCP Internal Medicine; Visit Provider Radiology Diagnostic Radiology | DX: G37.9 Demyelinating disease of central nervous system, unspecified (principal) | CPT/HCPCS: 70553 ==

== ENCOUNTER 2025-05-20 10:25 | Outpatient (REF) | payer OTHER, SELFPAY ==
--- OUTSIDE RECORDS SUMMARY | 2025-05-20 11:23 | XMS_ITS | Encounter Summary ---
Author Organization [facility] Address [address] [place] [address] Care Team Providers Care Composite Layup Worker Name Role Phone Cl Avila MD Primary Care Provider Unavail able Parish Roberson MD Primary Care Provider Un available Cynthia Joseph Md, MD Primary Care Provider Unavailable Carolina Ham MD Unavailable [phone] Valerie Hugo PA-C Unavailable Canelo Gómez PA-C Unavailable [phone] Encounter Details Date Type Department Care Team Description 02/18/2019 Traffic Control Supervisor Report Medical Records [address] [place] [address] Carolina Ham MD [address] [id number] Social History Tobacco Use Types Packs/Day Years Used Date Smoking Tobacco: Never Assessed Sex Assigned at Date Recorded Not on file documented as of this encounter Plan of Treatment Not on file documented as of this encounter Visit Diagnoses Not on filedocumented in this encounter Care Teams Composite Layup Worker Relationship Specialty Start Date End Date Cl Avila MD PCP - General PAIN MANAGEMENT 03/12/19 03/12/19 Parish Roberson MD PCP - General Internal Medicine 03/13/19 Cynthia Joseph MD, MD PCP - General Internal Medicine 12/21/19 Carolina Ham MD [address] [id number] Surgeon Neurosurgery 06/28/22 Valerie Hugo PA-C [address] [address] Specialist Neurosurgery 06/28/22 Canelo Gómez PA-C [address] [address] Specialist Neurosurgery 06/28/22 documented as of this encounter
--- OUTSIDE RECORDS SUMMARY | 2025-05-20 11:23 | XMS_ITS | Encounter Summary ---
Author Organization [employer] Address [address] [place] [address] [address] [place] [address] Care Team Providers Care Local Delivery Driver Name Role Phone Unavailable Primary Care Provider Unavailabl e Encounter Details Date Type Department Care Team (Latest Contact Info) Description 06/03/2022 Abstract [facility] CONVERSIONS Dental, Provider, DDS Social History Tobacco [...]
--- OUTSIDE RECORDS SUMMARY | 2025-05-20 11:23 | XMS_ITS | Clinical Summary ---
Author Organization [facility] Address [address] [place] [address] Care Team Providers Care Metal Machine Setter Name Role Phone Cynthia Joseph MD Primary Care Provider [phone] Social History Tobacco Use Types Packs/Day Years [...] age to complete this topic Care Teams Metal Machine Setter Relationship Specialty Start Date End Date Cynthia Joseph MD [address] [place] [address] PCP - General Internal Medicine 02/03/20
--- OUTSIDE RECORDS SUMMARY | 2025-05-20 11:23 | XMS_ITS | Patient Health Record ---
Author Organization [facility] Address [address] [place] [address] Care Team Providers Care Commissioned Police Officer Name Role Phone Parish Roberson M.D. Primary Care Provider Sadie rachanaLeoncio More Unavailable [phone] Reason For Referral No Information Medications Medication [...] Problem Status W/U Status Risk Notes Problem 062095853 Gastro-esophagea l reflux disease without esophagitis (K21.9) Active confirmed Problem 222083532 Encounter for screening for malignant neoplasm of colon (Z12.11) Active confirmed Problem Screening for malignant neoplasm of rectum (731223431) Encounter for screening for malignant neoplasm of rectum (Z12.12) Active confirmed Problem 09712612 Preprocedural examination (Z01.818) Active confirmed Problem 963736135 Gastroesophageal reflux disease, esophagitis presence not specified (K21.9) Active confirmed Problem 899064885 Esophageal spasm (K22.4) Active confirmed Plan Of Treatment Future Test Test Name Order Date COLONOSCOPY 12/07/2016 UPPER GI ENDOSCOPY 10/05/2018 Insurance Providers Payer Name Payer Address Payer Phone Subscriber Number Group Number Insured Name Patient Relationship to Insured Coverage Start Date Coverage End Date [facility] [address] [address] [place], [place] [phone] [id number] DON JOHNSON Self - patient is the insured MEDICAID OF [facility] [address] [place] [address] [id number] DON JOHNSON Self - patient is the insured Medical (General) History Medical History History ICD Code Hypertension Denies NH,DM,CVA,Lung disease,renal dise ase Multiple sclerosis--has some right leg w eakness Irregular heartbeat--sees Dr. Wilfredo holden Surgical History Surgery Date(Month/Year) cataract-lens implants x 2-right
[2025-05-20 13:48] LABS: Alanine Aminotransferase 23 U/L (0-40); Anion Gap 13 (12-20); Aspartate Amino Transferase 31 U/L (5-37); Blood Urea Nitrogen 7 mg/dL (9-16); Calcium 8.6 mg/dL (8.4-10.2); Carbon Dioxide 24 mmol/L (22-29); Chloride 108 mmol/L (96-108); Cholesterol 132 mg/dL (<200); Estimated Glomerular Filt Rate > 60; HDL Cholesterol 52 mg/dL (>40); Potassium 4.0 mmol/L (3.3-5.1); Sodium 141 mmol/L (135-145); Triglycerides 66 mg/dL (<150)
[2025-05-20 14:09] LABS: Folate 13.8 ng/mL (> or = 4.0); Vitamin B12 237 pg/mL (200-900)
== END 2025-05-20 10:26 | disposition home or self-care (01) ==
LOC: HO.HMGCLDS 10:25
PROVIDERS: PCP Internal Medicine; Visit Provider Internal Medicine
DX: I10 Essential (primary) hypertension (principal); E78.2 Mixed hyperlipidemia; R73.01 Impaired fasting glucose
CPT/HCPCS: 36415; 80048; 80061; 82306; 82607; 82746; 84450; 84460

== ENCOUNTER 2025-05-22 15:51 | Outpatient (AMB) | payer OTHER, SELFPAY ==
--- OUTSIDE RECORDS SUMMARY | 2025-05-22 15:54 | XMS_ITS | Patient Health Record ---
Author Organization [facility] Address [address] [place] [address] Care Team Providers Care Outreach Representative Name Role Phone Parish Roberson M.D. Primary Care Provider Sadie rachanaLeoncio More Unavailable [phone] Reason For Referral No Information Medications Medication [...] Problem Status W/U Status Risk Notes Problem [id number] Gastro-esophagea l reflux disease without esophagitis (K21.9) Active confirmed Problem 009387079 Encounter for screening for malignant neoplasm of colon (Z12.11) Active confirmed Problem Encounter for screening for malignant neoplasm of rectum (Z12.12) Active confirmed Problem 77089583 Preprocedural examination (Z01.818) Active confirmed Problem 735955174 Gastroesophageal reflux disease, esophagitis presence not specified (K21.9) Active confirmed Problem 531658895 Esophageal spasm (K22.4) Active confirmed Plan Of Treatment Future Test Test Name Order Date COLONOSCOPY 12/07/2016 UPPER GI ENDOSCOPY 10/05/2018 Insurance Providers Payer Name Payer Address Payer Phone Subscriber Number Group Number Insured Name Patient Relationship to Insured Coverage Start Date Coverage End Date [facility] [address] [address] [place], [place] [id number] DON JOHNSON Self - patient is the insured MEDICAID OF [facility] [address] [place] [address] [id number] DON JOHNSON Self - patient is the insured Medical (General) History Medical History History ICD Code Hypertension Denies [place],DM,CVA,Lung disease,renal dise ase Multiple sclerosis--has some right leg w eakness Irregular heartbeat--sees Dr. Wilfredo holden Surgical History Surgery Date(Month/Year) cataract-lens implants x 2-right
--- OUTSIDE RECORDS SUMMARY | 2025-05-22 15:54 | XMS_ITS | Encounter Summary ---
Author Organization [employer] Address [address] [place] [address] [address] [place] [address] Care Team Providers Care Podiatrist Orthopedic Name Role Phone Unavailable Primary Care Provider Unavailabl e Encounter Details Date Type Department Care Team (Latest Contact Info) Description 06/03/[address] [facility] CONVERSIONS Dental, Provider, DDS Social History [...]
--- OUTSIDE RECORDS SUMMARY | 2025-05-22 15:54 | XMS_ITS | Clinical Summary ---
Author Organization [facility] Address [address] [place] [address] Care Team Providers Care Weatherization Crew Leader Name Role Phone Cynthia Joseph MD Primary Care Provider [phone] Social History Tobacco Use Types Packs/Day Years [...] age to complete this topic Care Teams Weatherization Crew Leader Relationship Specialty Start Date End Date Cynthia Joseph MD [address] [place] [address] PCP - General Internal Medicine 02/03/20
[2025-05-22 15:55] VITALS: BP 152/94; PULSE 89; O2SAT 95; BMI 28.1
--- NOTE | 2025-05-22 15:55 | MHC.PC.OV ---
Vital Signs 05/22/25 15:55 Height 5 ft 10 in Weight 196 lb BMI 28.1 BP 152/94 H Blood Pressure Location Rt brachial Position Sitting Pulse 89 Pulse Source Pulse Oximeter Pulse Oximetry (%) 95 Intake Visit Reasons: PE-rescheduled 2x pls don't resched. Accompanied by: Self / Same As Patient Allergies No Known Allergies (No Known Allergies*) Allergy (Verified 05/22/25 16:02) Medication List - Last Reconciled 05/22/25 by Cynthia Joseph MD amlodipine 10 mg PO DAILY cholecalciferol (vitamin D3) 50 mcg PO DAILY donepezil 5 mg PO BEDTIME folic acid 1 mg PO DAILY lisinopril 5 mg PO DAILY metoprolol tartrate 50 mg PO BID 90 days oxybutynin chloride ER 10 mg PO DAILY 90 days pantoprazole 40 mg PO DAILY rosuvastatin 10 mg PO DAILY tamsulosin 0.4 mg PO BEDTIME 90 days teriflunomide 14 mg PO DAILY tizanidine 4 mg PO BID Tobacco use date assessed: 05/22/25 Dental Screening Dental Screen Date: 05/22/25 Did you have a dental visit in the last 12 months?: Yes Did you have a dental problem in the last 6 months where you did not have access to dental care?: No Was dental information given to patient?: Patient has dentist HPI PE-rescheduled 2x pls don't resched. HPI Details 59-year-old male with past medical history significant for dyslipidemia, has multiple sclerosis, followed by Dr. Ceja; overactive bladder followed by Urology; has paroxysmal atrial fibrillation, and hypertension followed by Dr. Mathews, here today for his physical exam. He has been feeling well, states that he has been taking his medicines as directed, but admits to not getting any regular exercise. Patient states that he was seen last year by Cardiology and was supposed to undergo coronary CT angiogram at [facility]. Patient states however that he has not received any call about his appointment test, and has no scheduled follow-up with Cardiology Up-to-date with his screening colonoscopy [place] in [address] Arenas with removal of hyperplastic polyp, due for a recheck again in 2026. Continues to smoke cigarettes on occasions, and drinks beer, mostly on the weekends. Has been feeling well with no complaints at present time. COUNT INCLUDES THE [facility] Medical History (Updated 05/22/25 @ 16:14 by Cynthia Joseph MD) PAF (paroxysmal atrial fibrillation) Lumbar disc disease with radiculopathy Mixed dyslipidemia Symptom of bladder outlet obstruction Macrocytosis without anemia Impaired fasting glucose Dyslipidemia Dislocation of proximal interphalangeal joint of right ring finger Dislocation of proximal interphalangeal joint of right middle finger Dislocation of proximal interphalangeal joint of right index finger Closed dislocation finger, proximal interphalangeal joint, traumatic Multiple sclerosis Essential hypertension Surgical History Hx of colonoscopy History of back surgery (~12/2019) History of right cataract surgery Family History Father No problems noted. Mother No problems noted. Social History Housing: House Alcohol intake: current Alcohol intake frequency: a few times a week Alcohol type: beer Patient Tobacco Use Status: Current someday Tobacco user Cigarettes Per Day: 1 Years Smoked: 40 yrs e-Cigarette/Vaping Use: Never Used Current occupational status: disabled Current occupation: rt handed Cognitive needs: No Hearing needs: No Vision needs: No Questionnaire PHQ-9 Over the last 2 weeks, how often have you been bothered by any of the following problems? 1. Little interest or pleasure in doing things: not at all 2. Feeling down, depressed, or hopeless: not at all 3. Trouble falling or staying asleep, or sleeping too much: not at all 4. Feeling tired or having little energy: not at all 5. Poor appetite or overeating: not at all 6. Feeling bad about yourself - or that you are a failure or have let yourself or your family down: not at all 7. Trouble concentrating on things, such as reading the newspaper or watching television: not at all 8. Moving or speaking so slowly that other people could have noticed. Or the opposite - being so fidgety or restless that you have been moving around a lot more than usual: not at all 9. Thoughts that you would be better off or of hurting yourself in some way: not at all Total score: 0 Depression Screening Interpretation: Negative Depression Screening Done: Yes 18570 - PHQ-9 Billing: Yes Source: Developed by Drs. Leoncio Menezes, Marjorie Mcfarland, Efrem Mustafa and colleagues, with an educational jd from [employer]. Thrive Questionnaire Date Thrive assessed: 05/22/25 I am a: Patient What is your living situation today?: I have a steady place to live Within the past 12 months, did the food you bought not last and you didn't have the money to get more?: Never true Within the past 12 months, did you worry whether your food would run out before you got money to buy more?: Never true Do you have trouble paying for medicines?: No Do you have trouble getting transportation to medical appointments?: Yes Do you have trouble paying your heating and electricity bill?: No Do you have trouble taking care of your child, family member or friend?: No Do you have trouble with day-to-day activities such as bathing, preparing meals, shopping, managing finances, etc.?: No Are you currently unemployed and looking for a job?: Yes Are you interested in more education?: No Please select the resources that you would like help with: None Currently or been in a relationship where the following occur: No concerns reported THRIVE Score: 1 AUDIT C Alcohol Use Questionnaire (AUDIT-C) 1. How often do you have a drink containing alcohol?: 2-4 times a month 2. How many drinks containing alcohol do you have on a typical day when you are drinking?: 5 or 6 3. How often do you have six or more drinks on one occasion?: Monthly Total Score: 6 Score Reviewed/Action Taken: Yes BLANCA-7 AMB Questionnaire BLANCA-7 Date BLANCA - 7 assessed: 05/22/25 Feeling nervous, anxious, or on edge: 0 = Not at all Not being able to stop or control worryin = Not at all Worrying too much about different things: 0 = Not at all Trouble relaxin = Not at all Being so restless that it is hard to sit still: 0 = Not at all Becoming easily annoyed or irritable: 0 = Not at all Feeling afraid as if something awful might happen: 0 = Not at all Total BLANCA-7 score (0-4 normal; 5-9 mild; 10-14 moderate; 15-21 severe): 0 Source: Developed by Drs. Leoncio Menezes, Marjorie Mcfarland, Efrem Mustafa and colleagues, with an educational jd from [employer]. BLANCA-7 Assessment Billing BLANCA-7 Assessment Tool: BLANCA-7 Assessment 47333 Review of Systems Const Denies fatigue, Denies headache(s) and Denies weakness Eyes Denies change in vision and Denies loss of vision ENT Reports no additional complaints, Denies dizziness and Denies headache(s) Card Denies chest pain, Denies chest pain with activity, Denies syncope, Denies pedal edema, Denies lightheadedness, Denies palpitations, Denies dyspnea and Denies dyspnea on exertion Resp Denies cough, Denies dyspnea and Denies dyspnea on exertion GI Denies abdominal pain, Denies melena, Denies bloating, Denies hematochezia, Denies change in bowel habits, Denies change in stool character and Reports heartburn (Controlled on pantoprazole) Reports no additional complaints Musc Denies abnormal gait, Denies muscle cramps, Denies muscle weakness, Denies numbness, Denies radiating pain into limb and Denies tingling Skin/Breast Denies lesions and Denies rash Neuro Denies abnormal gait, Denies dizziness, Denies syncope, Denies headache(s), Denies lack of coordination, Denies focal weakness, Denies loss of vision, Denies numbness, Denies seizure-like activity, Denies Sensory deficit (Neuro), Denies tingling, Denies tremor(s) and Denies weakness Psych Reports no additional complaints Endo Denies fatigue and Denies palpitations Randell/Lymph Reports no additional complaints Aller/Immun Reports no additional complaints Physical exam (Primary Care) Vital Signs: Last Vital Signs Pulse 89 05/22/25 15:55 BP 152/94 H 05/22/25 15:55 Pulse Ox 95 05/22/25 15:55 BMI result Body Mass Index 28.1 Tobacco/Smoking Status: Tobacco use Status Tobacco use date assessed 05/22/25 05/22/25 15:59 Patient Tobacco Use Status Current someday Tobacco 05/22/25 15:59 e-Cigarette/Vaping Use Never Used 05/22/25 15:59 PHQ-9: PHQ-9 Score PHQ-9: Total score 0 05/22/25 16:05 Depression Screening Interpretation: Negative Thrive Assessment: Date of Thrive Assessment Date Thrive assessed 05/22/25 05/22/25 15:59 Currently or been in a relationship where the following occur: No concerns reported Const Other: Alert oriented x3, no acute distress noted ambulatory with normal gait HENMT Head: Yes normocephalic Ears: external ears normal, TM's normal bilaterally and EAC's normal General nose exam: Normal external nose present Face and sinus: Yes face symmetric Mouth: Normal oral and palatal mucosa present, oropharynx normal and moist mucous membranes Eyes General: appearance normal, both eyes and all related structures Neck Neck: Yes full ROM, Yes no lymphadenopathy and Yes supple Chest Chest palpation & inspection: normal inspection of the chest Resp Auscultation: clear to auscultation bilaterally Cardio Rate: regular rate Rhythm: regular rhythm Heart sounds: S1 normal heart sound present and S2 normal heart sound present Peripheral pulses: posterior tibial pulses present bilateral and dorsalis pedis present bilateral GI Palpation (GI): Soft to palpation, nontender and no guarding Auscultation: normal bowel sounds General: Yes no CVA tenderness Male General Exam: Yes normal external exam Back/Spine/Pelvis Back: no CVA tenderness and No back tenderness Skin General skin exam: no rashes or lesions noted Neuro General: gait normal, tone normal, moves all extremities, Normal light touch and pain sensation, no focal motor deficits and CN's II-XI intact bilaterally Sensory Exam: No Sensory deficit (Neuro) Extrem General: Yes full ROM, Yes no joint enlargement, Yes no pedal edema and Yes normal gait Psych Appearance: grossly normal and well kempt Mental Status: mental status grossly normal Speech and movement: Normal speech and movement present Affect: normal affect Thought process: Normal thought process present Results Reviewed Results Reviewed: Name: Daniel Mcnamara Age/Sex: 59/M : 1965 Unit#: [id number] Attend Dr: Cynthia Joseph MD Re05/20/25 Status: DEP [facility] SPEC : [id number] ALETA: 05/20/25-1041 STATUS: COMP REQ : [id number] RECD: 05/20/25-[address]: Cynthia Joseph MD COMP: 05/20/25-1406 ENTERED: 05/20/25-[address]: ORDERED: Met Prof Fast, AST, ALT, Lipid Panel, Vitamin D 25-OH Test Result Flag Reference Sodium 141 135-145 mmol/L Potassium 4.0 # 3.3-5.1 mmol/L CL 108 96-108 mmol/L CO2 24 22-29 mmol/L Gap 13 12-20 BUN 7 L 9-16 mg/dL Creat 0.89 0.5-1.4 mg/dL eGFR > 60 Chronic Kidney Disease: Estimated GFR < 60 mL/min/1.73m2 Severe Kidney Disease: Estimated GFR < 15 mL/min/1.73m2 FBS 90 60-99 mg/dL CA 8.6 # 8.4-10.2 mg/dL AST (GOT) 31 5-37 U/L ALT (GPT) 23 0-40 U/L Triglyceride 66 <150 mg/dL Desirable Triglyceride: less than 150 mg/dL Borderline High Triglyceride 150-199 mg/dL High Triglyceride: 200-499 mg/dL Very High Triglyceride: greater than or equal to 5OO mg/dL Cholesterol 132 <200 mg/dL Desirable Cholesterol: less than 200 mg/dL Borderline High Cholesterol: 200-239 mg/dL High Cholesterol: greater than 239 mg/dL LDL Calculated 67 <100 mg/dL Desirable LDL: less than 100 mg/dL Near Optimal/Above Optimal LDL: 110-129 mg/dL Borderline High LDL: 130-159 mg/dL High LDL: 160-189 mg/dL Very High LDL: greater than or equal to 190 mg/dL HDL 52 >40 mg/dL Desirable HDL: greater than 40 mg/dL Note: This HDL assay may give artificially low results in patients with liver disease. Vitamin D 25-OH 59.8 >30 ng/mL Health Based Reference Values* < 20 ng/mL Deficient 20-30 ng/mL Insufficient > 30 ng/mL Sufficient Coding Level of Care Code Est Pt Prev Care 40-64y(00274) Diagnoses PAF (paroxysmal atrial fibrillation) I48.0 Essential hypertension I10 Mixed dyslipidemia E78.2 Impaired fasting glucose R73.01 Overactive bladder N32.81 Multiple sclerosis G35 Annual visit for general adult medical examination with abnormal findings Z00.01 Additional Codes BLANCA-7 Assessment Billing - BLANCA-7 Assessment Tool: BLANCA-7 Assessment 22747 ([id number]) PHQ-9 - 94401 - PHQ-9 Billing: Yes ([id number]) Assessment & Plan Assessment & Plan (1) PAF (paroxysmal atrial fibrillation): Code(s): I48.0 - Paroxysmal atrial fibrillation Category: Medical Plan: Followed by cardiology currently on metoprolol tartrate 50 mg 1 tablet twice a day and (2) Essential hypertension: Code(s): I10 - Essential (primary) hypertension Category: Medical Plan: Blood pressure elevated on today's visit, currently on amlodipine 10 mg daily, metoprolol tartrate 50 mg 1 tablet twice a day and lisinopril 5 mg once a day. Patient states as he is not sure whether he took his blood pressure medicines this morning. Will continue to monitor. A referral also was made for him to follow-up with Cardiology again, was supposed to get a coronary CT angiography scheduled (3) Mixed dyslipidemia: Code(s): E78.2 - Mixed hyperlipidemia Category: Medical Plan: Fasting lipids are showed now results within normal limits, continued on rosuvastatin 10 mg twice a day (4) Impaired fasting glucose: Code(s): R73.01 - Impaired fasting glucose Category: Medical Plan: Your previous fasting blood sugars were elevated above 100 mg/dL. Latest fasting glucose are now within normal limits. Impaired glucose metabolism increases the risk for developing diabetes mellitus type 2, as well as heart attack and stroke later on. Lifestyle changes that promotes weight loss, healthy eating habits, and regular exercise are important, and can prevent the progression to diabetes (5) Overactive bladder: Code(s): N32.81 - Overactive bladder Category: Medical Plan: Currently on tamsulosin 0.4 mg at bedtime, followed by Urology (6) Multiple sclerosis: Comment: Followed by Dr. Ceja Code(s): G35 - Multiple sclerosis Category: Medical Plan: Stable, currently followed by Neurology (7) Annual visit for general adult medical examination with abnormal findings: Code(s): Z00.01 - Encounter for general adult medical examination with abnormal findings Plan: Fasting lab results with with the patient today. Reinforced importance of following low-cholesterol diet and getting regular exercise. Advised to get dental cleaning every 6 months and yearly eye exam every 2 years., advised to cut back on his alcohol intake. Colonoscopy screening is up-to-date. Up-to-date with his vaccines but does not want to get a COVID booster, reminded to get his 2nd shingles vaccine administered Orders: Referrals Cardiology Referral I48.0 - Paroxysmal atrial fibrillation
== END 2025-05-22 16:22 | disposition home or self-care (01) ==
LOC: HO.HMCC 15:52
PROVIDERS: PCP Internal Medicine; Visit Provider Internal Medicine
DX: Z00.01 Encounter for general adult medical examination with abnormal findings (principal); I48.0 Paroxysmal atrial fibrillation; G35 Multiple sclerosis; I10 Essential (primary) hypertension; E78.2 Mixed hyperlipidemia; R73.01 Impaired fasting glucose; N32.81 Overactive bladder

== ENCOUNTER → 2025-05-22 15:51 | Outpatient (BNVA) | payer OTHER, SELFPAY | PROVIDERS: PCP Internal Medicine; Visit Provider Internal Medicine | DX: Z00.01 Encounter for general adult medical examination with abnormal findings (principal); G35 Multiple sclerosis; E78.5 Hyperlipidemia, unspecified; N32.81 Overactive bladder; I48.0 Paroxysmal atrial fibrillation; I10 Essential (primary) hypertension; E78.2 Mixed hyperlipidemia; R73.01 Impaired fasting glucose | CPT/HCPCS: 96127; 99396 ==

== ENCOUNTER 2025-07-02 12:44 | Outpatient (REF) | payer OTHER, SELFPAY ==
[2025-07-02 14:05] LABS: Hematocrit 41.2 % (42.0-52.0); Hemoglobin 14.1 g/dl (14.0-18.0); Mean Corpuscular HGB Conc 34.2 g/dl (31.0-36.0); Mean Corpuscular Hemoglobin 33.7 pg (27.0-33.0); Mean Corpuscular Volume 98.6 fL (80.0-98.0); NRBC Abs Auto 0.000 X10*3/uL (0.0-0.012); NRBC Pct Auto 0.0 /100WBC (0.0-0.2); Platelet Count 152 X10*3/uL (160-400); Red Blood Count 4.18 X10*6/uL (4.60-5.80); White Blood Count 5.0 X10*3/uL (4.8-10.8)
[2025-07-02 14:10] LABS: Hemoglobin A1C 113.9033 umol/L; Total Hemoglobin (HGBA1C) 3707.4990 umol/L
[2025-07-02 14:15] LABS: INTERNATIONAL NORM RATIO 1.1 (0.9-1.1); Prothrombin Time 12.1 SEC (10.9-12.4)
== END 2025-07-02 12:45 | disposition home or self-care (01) ==
LOC: HO.LAB 12:44
PROVIDERS: PCP Internal Medicine; Visit Provider Internal Medicine
DX: I48.0 Paroxysmal atrial fibrillation (principal); I10 Essential (primary) hypertension; E78.2 Mixed hyperlipidemia; R73.01 Impaired fasting glucose; F17.210 Nicotine dependence, cigarettes, uncomplicated; Z79.899 Other long term (current) drug therapy
CPT/HCPCS: 36415; 83036; 85027; 85610; 93005; 99212

== ENCOUNTER 2025-07-02 12:44 | Outpatient (AMB) | payer OTHER, SELFPAY ==
--- NOTE | 2025-07-02 12:51 | A.OFFVIS_ITS ---
Vital Signs 07/02/25 12:52 Height 5 ft 10 in Weight 194 lb 0.108 oz BMI 27.8 BP 140/78 H Blood Pressure Location Lt brachial Position Sitting Pulse 128 H Pulse Source Monitor Intake Visit Reasons: 1 year f/up Paroxysmal atrial fibrillation Allergies No Known Allergies (No Known Allergies*) Allergy (Verified 05/22/25 16:02) Medication List - Last Reconciled 07/02/25 by Gabriel Mathews MD amlodipine 10 mg PO DAILY cholecalciferol (vitamin D3) 50 mcg PO DAILY donepezil 5 mg PO BEDTIME folic acid 1 mg PO DAILY lisinopril 5 mg PO DAILY metoprolol tartrate 50 mg PO BID 90 days oxybutynin chloride ER 10 mg PO DAILY 90 days pantoprazole 40 mg PO DAILY rosuvastatin 10 mg PO DAILY tamsulosin 0.4 mg PO BEDTIME 90 days teriflunomide 14 mg PO DAILY tizanidine 4 mg PO BID HPI Comments Details: Daniel returns for follow-up. He has a history of paroxysmal atrial fibrillation. However, only one previous episode. Today, he is in atrial fibrillation with rapid rate on the EKG but he states he does not feel anything. Hence unclear duration. The last appointment was in April with his PCP and the heart rate is reportedly in the normal range. But there is no EKG. Hence onset could be in the last few days/weeks. Otherwise, has hypertension and dyslipidemia. Last year, we had ordered a coronary CTA but it seems that numerous attempts were made to contact him for the appointment but he never responded. Hence not done. Otherwise, has multiple sclerosis which has been fairly stable. From the cardiac standpoint, he reports no symptoms whatsoever. [facility] Medical History (Updated 05/22/25 @ 16:14 by Cynthia Joseph MD) PAF (paroxysmal atrial fibrillation) Lumbar disc disease with radiculopathy Mixed dyslipidemia Symptom of bladder outlet obstruction Macrocytosis without anemia Impaired fasting glucose Dyslipidemia Dislocation of proximal interphalangeal joint of right ring finger Dislocation of proximal interphalangeal joint of right middle finger Dislocation of proximal interphalangeal joint of right index finger Closed dislocation finger, proximal interphalangeal joint, traumatic Multiple sclerosis Essential hypertension Surgical History Hx of colonoscopy History of back surgery (~12/2019) History of right cataract surgery Family History Father No problems noted. Mother No problems noted. Social History Housing: House Alcohol intake: current Alcohol intake frequency: a few times a week Alcohol type: beer Patient Tobacco Use Status: Current someday Tobacco user Cigarettes Per Day: 1 Years Smoked: 40 yrs e-Cigarette/Vaping Use: Never Used Current occupational status: disabled Current occupation: rt handed Cognitive needs: No Hearing needs: No Vision needs: No Review of Systems Const Denies weakness ENT Denies dizziness Card Denies chest pain, Denies chest pain with activity, Denies syncope, Denies rapid heart rate, Denies pedal edema, Denies edema, Denies leg edema, Denies lightheadedness, Denies palpitations, Reports dyspnea, Denies dyspnea on exertion and Denies orthopnea Resp Denies cough, Reports dyspnea and Denies dyspnea on exertion GI Denies hematochezia and Denies change in stool character Musc Denies abnormal gait, Denies muscle cramps, Denies muscle weakness, Denies num bness, Denies radiating pain into limb and Denies tingling Neuro Denies abnormal gait, Denies dizziness, Denies syncope, Denies numbness, Denies tingling and Denies weakness Endo Denies palpitations Physical Exam Vital Signs: Last Vital Signs Pulse 128 H 07/02/25 12:52 BP 140/78 H 07/02/25 12:52 BMI result Body Mass Index 27.8 Const General: comfortable and no acute distress Orientation/consciousness: patient oriented x3 HEENT Other: Unremarkable Head: Yes normal to inspection Neck Neck: Yes normal visual inspection Chest Chest palpation & inspection: normal inspection of the chest Resp Auscultation: clear to auscultation bilaterally Cardio Palpation: normal PMI Heart sounds: S1 normal heart sound present, S2 normal heart sound present, no gallops, no murmurs and no rubs GI Palpation (GI): Soft to palpation Back/Spine/Pelvis Other: unremarkable Skin General skin exam: no rashes or lesions noted Neuro General: patient oriented x3 Extrem General: Yes normal to inspection Psych Mental Status: mental status grossly normal Office Procedures EKG Details: EKG with atrial fibrillation at a rate of 128/Min; rightward axis; nonspecific ST-T changes. [id number], Complete Assessment & Plan Assessment & Plan (1) PAF (paroxysmal atrial fibrillation): Code(s): I48.0 - Paroxysmal atrial fibrillation Category: Medical Plan: By EKG today, atrial fibrillation with rapid rate. Unknown duration but could be in the last few weeks/days. Prior to this, remote brief episode. He has got absolutely no symptoms. We will go up on the beta-gonzalo dosing. We discussed about that today. He can do CBC/PT INR. BNP looks okay. Once labs reviewed, we can start Eliquis. No obvious bleeding issues. Reports drinking 6 pack per week and needs to cut back on that. If the atrial fibrillation does not resolve itself, we will need cardioversion after adequate anticoagulation. We will follow up after the Holter. (2) Essential hypertension: Code(s): I10 - Essential (primary) hypertension Category: Medical Plan: On amlodipine and lisinopril. Slightly high blood pressure. Hopefully, increase in beta-blockers should help. (3) Regional wall motion abnormality of heart: Code(s): R93.1 - Abnormal findings on diagnostic imaging of heart and coronary circulation Category: Medical Plan: Echocardiogram in the past with basal inferior/inferoseptal hypokinesis. LVEF is preserved at 55-60%. In the perfusion imaging, there was small apical inferior reversible defect but normal contractility. Thought to be possibly artifactual. He has got no angina whatsoever. Last year, coronary CTA was ordered but not followed through by patient. Eventually, we will need to get this sorted out after the rhythm issues resolved. (4) Mixed dyslipidemia: Code(s): E78.2 - Mixed hyperlipidemia Category: Medical Plan: On statins. Much improved. Orders: Orders Prothrombin Time INR Today I48.0 - Paroxysmal atrial fibrillation ECG 3 day holter monitor Today I48.0 - Paroxysmal atrial fibrillation Complete Blood Count no Diff Today I48.0 - Paroxysmal atrial fibrillation Medications: New metoprolol tartrate 100 mg PO BID 180 tabs 2RF 90 days Discontinued metoprolol tartrate Discontinued Reason: Doctor's Order 50 mg PO BID 90 days 180 tabs 1RF Coding Level of Care Code Est Pt Level 4 (37268) Complex EM visit Add On G2211 Diagnoses PAF (paroxysmal atrial fibrillation) I48.0 Essential hypertension I10 Regional wall motion abnormality of heart R93.1 Mixed dyslipidemia E78.2 CPT Codes EKG - CPT: 75520-Qgdnyftzxieyzyzuo, Complete ([id number])
[2025-07-02 12:52] VITALS: BP 140/78; PULSE 128; BMI 27.8
--- OUTSIDE RECORDS SUMMARY | 2025-07-02 15:42 | XMS_ITS | Clinical Summary ---
Author Organization [employer] Address [address] [place] [address] 7t [place] [address] Care Team Providers Care Lamp Replacer Name Role Phone Unavailable Primary Care Provider Unavailabl e Allergies No known active allergies Medications cholecalciferol (Vitamin D-3) 10 MCG (400 UNIT) capsule Active Cobalamin Combinations (Vitamin G28-Dbedg Acid) 500-400 MCG tablet Active donepezil (Aricept) 5 MG tablet Take 5 mg by mouth in the morning. Active donepezil (Aricept) 5 MG tablet Take 1 tablet by mouth at bed time. Active lisinopril 5 MG tablet Take 1 tablet by mouth at bed time. Active metoprolol tartrate (Lopressor) 50 MG tablet Take 1 tablet by mouth every 12 (twelve) hours. Active omeprazole (PriLOSEC) [address] capsule Take 1 capsule by mouth at bed time. Active sertraline (Zoloft) 25 MG tablet Take 1 tablet by mouth at bed time. Active Sod Fluoride-Potassiu m Nitrate (PreviDent 5000 Enamel Protect) 1.1-5 % gel Take by mouth every 12 (twelve) hours. 1 Active amLODIPine (Norvasc) 10 MG tablet Take 10 mg by mouth in the morning. 2 Active Social History Tobacco Use Types Packs/Day Years Used Date Smoking Tobacco: Never Smokeless Tobacco: Never Tobacco Cessation:Counseling Given: Not Answered Sex and Gender Information Value Date Recorded Sex Assigned at Male 08/22/2022 10:23 AM EDT Legal Sex Male 10:23 AM EDT Gender Identity Male 08/22/2022 10:23 AM EDT Sexual Orientation Straight 08/22/2022 10 :23 AM EDT Last Filed Vital Signs Vital Sign Reading Time Taken Comments Blood Pressure 130/80 04/28/2023 1:46 PM EDT Pulse 73 04/28/2023 1:46 PM EDT Temperature - - Respiratory Rate - - Oxygen Saturation - - Inhaled Oxygen Concentration - - Weight - - Height - - Body Mass Index - - Plan of Treatment Health Maintenance Due Date Last Done Comments CT Colonography 1964 Colonoscopy 1964 Colorectal Cancer Screening 1964 Dental Oral Exam 1964 Dental Prophylaxis 1964 Dental X-Ray: Bitewings 1964 Dental X-Ray: Full Mouth 1964 Depression Screening 1964 FIT DNA/Cologuard 1964 FIT 1964 FOBT 1964 HIV Screening 1964 Lipid Panel 1964 SDOH Screening 1964 Sigmoidoscopy 1964 Disability Screening 1964 Alcohol/Substance Use Screening 1976 Hepatitis C Screening 1982 Pneumococcal Vaccine: 50+ Years (1 of 1 - PCV) 2014 Zoster Vaccines (2 of 2) 05/03/2023 03/08/2023 Tobacco Screening 04/28/2024 04/28/2023 COVID-19 Vaccine (4 - 2024-2 6 season) 2025 10/18/2021, 02/15/2021, 01/18/2021 Influenza Vaccine (#1) 2025 , 10/12/2021, 07/09/2020 DTaP/Tdap/Td Vaccines (2 - T d or Tdap) 02/13/2028 02/12/2018 RSV Patients and Patients Aged 60 years or older (1 - 1-dose 75+ series) 2039 HIB Vaccines Aged Out No longer eligi ble based on patient's age to complete this topic HPV Vaccines Aged Out No longer eligi ble based on patient's age to complete this topic Hepatitis A Vaccines Aged Out No long er eligible based on patient's age to complete this topic Hepatitis B Vaccines Aged Out No long er eligible based on patient's age to complete this topic IPV Vaccines Aged Out No longer eligi ble based on patient's age to complete this topic Meningococcal B Vaccine Aged Out No l onger eligible based on patient's age to complete this topic Meningococcal Vaccine Aged Out No marquis azael eligible based on patient's age to complete this topic RSV under 20 months Aged Out No longe r eligible based on patient's age to complete this topic Rotavirus Vaccines Aged Out No longer eligible based on patient's age to complete this topic Insurance [facility] STAND AD[place]
--- OUTSIDE RECORDS SUMMARY | 2025-07-02 15:42 | XMS_ITS | Encounter Summary ---
Author Organization [employer] Address [address] [facility] 7t [place] [address] Care Team Providers Care Dobie Worker Name Role Phone Unavailable Primary Care Provider Unavailabl e Encounter Details Date Type Department Care Team (Late st Contact Info) Description 12/23/2022 Abstract [facility]ULT D[facility] [address] [place] [address] George Quinn, DMD [address] [place] [address] Social History Tobacco Use Types Packs/Day Years Used Date Smoking Tobacco: Never Smokeless Tobacco: Never Sex and Gender Information Value Date Recorded Sex Assigned at Male 08/22/2022 10:23 AM EDT Legal Sex Male 10:23 AM EDT Gender Identity Male 08/22/2022 10:23 AM EDT Sexual Orientation Straight 08/22/2022 10 :23 AM EDT COVID-19 Exposure Response Date Recorded In the last 10 days, have yo u been in contact with someone who was confirmed or suspected to have Coronavirus/COVID-19? No / Unsure 12/23/2022 1:56 PM EST documented as of this encounter Plan of Treatment Not on file documented as of this encounter Visit Diagnoses Not on filedocumented in this encounter
--- OUTSIDE RECORDS SUMMARY | 2025-07-02 15:42 | XMS_ITS | Patient Health Record ---
Author Organization [facility] Address [address] [place] [address] Care Team Providers Care Liquor Establishment Manager Name Role Phone Parish Roberson M.D. Primary Care Provider Sadie rachanaLeoncio More Unavailable [phone] Reason For Referral No Information Medications Medication [...] Problem Status W/U Status Risk Notes Problem [id number] Gastro-esophagea l reflux disease without esophagitis (K21.9) Active confirmed Problem 266280170 Encounter for screening for malignant neoplasm of colon (Z12.11) Active confirmed Problem Screening for malignant neoplasm of rectum (894629947) Encounter for screening for malignant neoplasm of rectum (Z12.12) Active confirmed Problem 83398089 Preprocedural examination (Z01.818) Active confirmed Problem 031844417 Gastroesophageal reflux disease, esophagitis presence not specified (K21.9) Active confirmed Problem 529128024 Esophageal spasm (K22.4) Active confirmed Plan Of Treatment Future Test Test Name Order Date COLONOSCOPY 12/07/2016 UPPER GI ENDOSCOPY 10/05/2018 Insurance Providers Payer Name Payer Address Payer Phone Subscriber Number Group Number Insured Name Patient Relationship to Insured Coverage Start Date Coverage End Date [facility] [address] [address] [place], [place] [id number] [phone] [id number] DON JOHNSON Self - patient is the insured MEDICAID OF [facility] [address] [place] [address] [id number] DON JOHNSON Self - patient is the insured Medical (General) History Medical History History ICD Code Hypertension Denies UT,DM,CVA,Lung disease,renal dise ase Multiple sclerosis--has some right leg w eakness Irregular heartbeat--sees Dr. Wilfredo holden Surgical History Surgery Date(Month/Year) cataract-lens implants x 2-right
--- OUTSIDE RECORDS SUMMARY | 2025-07-02 15:42 | XMS_ITS | Encounter Summary ---
Author Organization [employer] Address [address] [facility] 7t [place] [address] Care Team Providers Care Facility Manager Name Role Phone Unavailable Primary Care Provider Unavailabl e Encounter Details Date Type Department Care Team (Late st Contact Info) Description 12/23/2022 Abstract [facility]ULT D[facility] [address] [place] [address] George Quinn, DMD [address] [place] [address] Social History Tobacco Use Types Packs/Day Years [...]
--- OUTSIDE RECORDS SUMMARY | 2025-07-02 15:42 | XMS_ITS | Encounter Summary ---
Author Organization [employer] Address [address] [place] [address] [facility] [place] [address] Care Team Providers Care Aeronautics Teacher Name Role Phone Unavailable Primary Care Provider Unavailabl e Encounter Details Date Type Department Care Team (Latest Contact Info) Description 06/03/2022 Abstract [facility] CONVERSIONS Dental, Provider, DDS Social History [...]
--- OUTSIDE RECORDS SUMMARY | 2025-07-02 15:42 | XMS_ITS | Encounter Summary ---
Author Organization [employer] Address [address] [place] [address] [facility] [place] [address] Care Team Providers Care Tankroom Tender Name Role Phone Unavailable Primary Care Provider Unavailabl e Encounter Details Date Type Department Care Team (Latest Contact Info) Description 04/16/[address] [facility] CONVERSIONS Dental, Provider, DDS Social History [...]
--- OUTSIDE RECORDS SUMMARY | 2025-07-02 15:42 | XMS_ITS | Encounter Summary ---
Author Organization [employer] Address [address] [place] [address] [address] [place] [address] Care Team Providers Care Box Finisher Name Role Phone Unavailable Primary Care Provider Unavailabl e Encounter Details Date Type Department Care Team (Latest Contact Info) Description 12/26/2019 Abstract [facility] CONVERSION[facility] Dental, Provider, DDS Social History [...]
--- OUTSIDE RECORDS SUMMARY | 2025-07-02 15:42 | XMS_ITS | Clinical Summary ---
Author Organization [facility] Address [address] [place] [address] Care Team Providers Care Detailer Furniture Name Role Phone Cynthia Joseph MD Primary Care Provider [phone] Social History Tobacco Use Types Packs/Day Years [...] age to complete this topic Care Teams Detailer Furniture Relationship Specialty Start Date End Date Cynthia Joseph MD [address] [place] [address] PCP - General Internal Medicine 02/03/20
== END 2025-07-02 13:17 | disposition home or self-care (01) ==
LOC: HO.HCS 12:45
PROVIDERS: PCP Internal Medicine; Visit Provider Internal Medicine
DX: I48.0 Paroxysmal atrial fibrillation (principal); I10 Essential (primary) hypertension; R93.1 Abnormal findings on diagnostic imaging of heart and coronary circulation; E78.2 Mixed hyperlipidemia
CPT/HCPCS: 93010; 99214

== ENCOUNTER → 2025-07-24 12:49 | Outpatient (REF) | payer OTHER, SELFPAY ==
--- NOTE | 2025-07-24 12:51 | HM_ITS ---
Conclusion: 1. Patient was monitored for total period of 3 days 2. Baseline was atrial fibrillation with average heart of 98 beats per minute with frequent elevated heart rate about 100 beats per minute with fastest heart rate of 189 beats per minute 3. 1 pause of 2.97 seconds noted, not reaching clinical significance 4. Occasional PVCs noted with 1 8 beat run of nonsustained VT at 162 beats per minute 5. No patient reported events MTDD
--- OUTSIDE RECORDS SUMMARY | 2025-07-24 14:17 | XMS_ITS | Encounter Summary ---
Author Organization [employer] Address [address] [place] [address] [facility] [place] [address] Care Team Providers Care Concrete Sculptor Name Role Phone Unavailable Primary Care Provider Unavailabl e Encounter Details Date Type Department Care Team (Latest Contact Info) Description 06/03/2022 Abstract [facility] CONVERSIONS Dental, Provider, DDS Social History [...]
--- OUTSIDE RECORDS SUMMARY | 2025-07-24 14:17 | XMS_ITS | Encounter Summary ---
Author Organization [employer] Address [address] [place] [address] [facility] [place] [address] Care Team Providers Care Aircraft Magneto Mechanic Name Role Phone Unavailable Primary Care Provider Unavailabl e Encounter Details Date Type Department Care Team (Latest Contact Info) Description 12/26/2019 Abstract [facility] CONVERSIONS Dental, Provider, DDS Social History [...]
--- OUTSIDE RECORDS SUMMARY | 2025-07-24 14:18 | XMS_ITS | Clinical Summary ---
Author Organization [facility] Address [address] [place] [address] Care Team Providers Care Manufacturing Project Engineer Name Role Phone Cynthia Joseph MD Primary Care Provider [phone] Social History Tobacco Use Types Packs/Day Years [...] age to complete this topic Care Teams Manufacturing Project Engineer Relationship Specialty Start Date End Date Cynthia Joseph MD [address] [place] [address] PCP - General Internal Medicine 02/03/20
--- OUTSIDE RECORDS SUMMARY | 2025-07-24 14:18 | XMS_ITS | Encounter Summary ---
Author Organization [employer] Address [address] [facility] 7t [place] [address] Care Team Providers Care Raw Mill Operator Name Role Phone Unavailable Primary Care Provider Unavailabl e Encounter Details Date Type Department Care Team (Late st Contact Info) Description 12/23/2022 Abstract [facility] ADULT D[facility]AL [address] [place] [address] George Quinn, DMD [address] [place] [address] Social History Tobacco Use Types Packs/Day Years [...]
--- OUTSIDE RECORDS SUMMARY | 2025-07-24 14:18 | XMS_ITS | Encounter Summary ---
Author Organization [employer] Address [address] [place] [address] [facility] [place] [address] Care Team Providers Care Cut Off Machine Operator Name Role Phone Unavailable Primary Care Provider Unavailabl e Encounter Details Date Type Department Care Team (Latest Contact Info) Description 04/16/2021 Abstract [facility] CONVERSION[facility] Dental, Provider, DDS Social History [...]
--- OUTSIDE RECORDS SUMMARY | 2025-07-24 14:18 | XMS_ITS | Encounter Summary ---
Author Organization [employer] Address [address] [facility] 7t [place] [address] Care Team Providers Care Data Support Specialist Name Role Phone Unavailable Primary Care Provider Unavailabl e Encounter Details Date Type Department Care Team (Late st Contact Info) Description 12/23/2022 Abstract [facility] ADULT D[facility] [address] [place] [address] George Quinn, DMD [address] [place] [address] Social History Tobacco Use Types Packs/Day Years [...]
--- OUTSIDE RECORDS SUMMARY | 2025-07-24 14:18 | XMS_ITS | Clinical Summary ---
Author Organization [employer] Address [address] [place] [address] 7t [place] [address] Care Team Providers Care Supervisor Nutritional Yeast Name Role Phone Unavailable Primary Care Provider Unavailabl e Allergies No known active allergies Medications cholecalciferol (Vitamin D-3) 10 MCG (400 UNIT) capsule Active Cobalamin Combinations (Vitamin J14-Qvjia Acid) 500-400 MCG tablet Active donepezil (Aricept) [...]
--- OUTSIDE RECORDS SUMMARY | 2025-07-24 14:18 | XMS_ITS | Patient Health Record ---
Author Organization [facility] Address [address] [place] [address] Care Team Providers Care Sampler Tester Name Role Phone Parish Roberson M.D. Primary Care Provider Sadie rachanaLeoncio More Unavailable [phone] Reason For Referral No Information Medications Medication [...] Problem Status W/U Status Risk Notes Problem [id number] Gastro-esophagea l reflux disease without esophagitis (K21.9) Active confirmed Problem 540557308 Encounter for screening for malignant neoplasm of colon (Z12.11) Active confirmed Problem Screening for malignant neoplasm of rectum (169744418) Encounter for screening for malignant neoplasm of rectum (Z12.12) Active confirmed Problem 10791889 Preprocedural examination (Z01.818) Active confirmed Problem 759040698 Gastroesophageal reflux disease, esophagitis presence not specified (K21.9) Active confirmed Problem 125914942 Esophageal spasm (K22.4) Active confirmed Plan Of Treatment Future Test Test Name Order Date COLONOSCOPY 12/07/2016 UPPER GI ENDOSCOPY 10/05/2018 Insurance Providers Payer Name Payer Address Payer Phone Subscriber Number Group Number Insured Name Patient Relationship to Insured Coverage Start Date Coverage End Date [facility] [address] [address] [place], [place] [id number] [phone] [id number] DON JOHNSON Self - patient is the insured MEDICAID OF [facility] [address] [place] [address] [id number] DON JOHNSON Self - patient is the insured Medical (General) History Medical History History ICD Code Hypertension Denies ID,DM,CVA,Lung disease,renal dise ase Multiple sclerosis--has some right leg w eakness Irregular heartbeat--sees Dr. Wilfredo holden Surgical History Surgery Date(Month/Year) cataract-lens implants x 2-right
== END ==
LOC: HO.CARD 12:49
PROVIDERS: PCP Internal Medicine; Visit Provider Internal Medicine
DX: I48.0 Paroxysmal atrial fibrillation (principal)
CPT/HCPCS: 93242

== ENCOUNTER → 2025-07-24 12:51 | Outpatient (BNV) | payer OTHER, SELFPAY | PROVIDERS: PCP Internal Medicine; Visit Provider Internal Medicine Cardiovascular Disease | DX: I48.91 Unspecified atrial fibrillation (principal); I49.3 Ventricular premature depolarization | CPT/HCPCS: 93244 ==

== ENCOUNTER 2025-08-14 13:41 | Outpatient (AMB) | payer OTHER, SELFPAY ==
--- NOTE | 2025-08-14 14:32 | MHC.OFFVIS ---
Vital Signs 08/14/25 14:35 Height 5 ft 10 in Weight 200 lb 9.93 oz BMI 28.8 BP 110/80 Blood Pressure Location Lt brachial Position Sitting Pulse 89 Pulse Source Pulse Oximeter Intake Visit Reasons: f/up-per HS-atrial fibrillation Supervisor Mold Construction Required: No Accompanied by: Self / Same As Patient Allergies No Known Allergies (No Known Allergies*) Allergy (Verified 05/22/25 16:02) Medication List - Last Reconciled 08/14/25 by Gabriel Mathews MD amlodipine 10 mg PO DAILY cholecalciferol (vitamin D3) 50 mcg PO DAILY diltiazem HCl CD (Cartia XT) 120 mg PO QAM donepezil 5 mg PO BEDTIME folic acid 1 mg PO DAILY lisinopril 5 mg PO DAILY metoprolol tartrate 100 mg PO BID 90 days oxybutynin chloride ER 10 mg PO DAILY 90 days pantoprazole 40 mg PO DAILY rosuvastatin 10 mg PO DAILY tamsulosin 0.4 mg PO BEDTIME 90 days teriflunomide 14 mg PO DAILY tizanidine 4 mg PO BID HPI Comments Details: Daniel returns for follow-up. He has had a prior history of atrial fibrillation but was mostly remaining in sinus rhythm. During recent clinic visit he was found to be in atrial fibrillation rapid rate but he had no symptoms. Otherwise, patient states he feels well he has got no clear-cut complaints. History of multiple sclerosis. That is also been fairly stable. He has completed a Holter monitor. [facility] Medical History PAF (paroxysmal atrial fibrillation) Lumbar disc disease with radiculopathy Mixed dyslipidemia Symptom of bladder outlet obstruction Macrocytosis without anemia Impaired fasting glucose Dyslipidemia Dislocation of proximal interphalangeal joint of right ring finger Dislocation of proximal interphalangeal joint of right middle finger Dislocation of proximal interphalangeal joint of right index finger Closed dislocation finger, proximal interphalangeal joint, traumatic Multiple sclerosis Essential hypertension Surgical History Hx of colonoscopy History of back surgery (~12/2019) History of right cataract surgery Family History Father No problems noted. Mother No problems noted. Social History Housing: House Alcohol intake: current Alcohol intake frequency: a few times a week Alcohol type: beer Patient Tobacco Use Status: Current someday Tobacco user Cigarettes Per Day: 1 Years Smoked: 40 yrs e-Cigarette/Vaping Use: Never Used Current occupational status: disabled Current occupation: rt handed Cognitive needs: No Hearing needs: No Vision needs: No Review of Systems Const Denies chills, Denies fatigue, Denies fever(s), Denies frequent falls, Denies weakness, Denies weight gain and Denies weight loss ENT Denies dizziness Card Denies chest pain, Denies leg edema, Denies lightheadedness, Denies palpitations, Denies dyspnea and Denies dyspnea on exertion Resp Denies cough, Denies dyspnea and Denies dyspnea on exertion GI Denies hematochezia Musc Denies abnormal gait, Denies muscle weakness, Denies numbness, Denies radiating pain into limb and Denies tingling Neuro Denies abnormal gait, Denies dizziness, Denies frequent falls, Denies numbness, Denies tingling and Denies weakness Endo Denies fatigue and Denies palpitations Physical Exam Vital Signs: Last Vital Signs Pulse 89 08/14/25 14:35 BP 110/80 08/14/25 14:35 BMI result Body Mass Index 28.8 Const General: comfortable and no acute distress Orientation/consciousness: patient oriented x3 HEENT Other: Unremarkable Head: Yes normal to inspection Neck Neck: Yes normal visual inspection Chest Chest palpation & inspection: normal inspection of the chest Resp Auscultation: clear to auscultation bilaterally Cardio Palpation: normal PMI Heart sounds: S1 normal heart sound present, S2 normal heart sound present, no gallops, no murmurs and no rubs GI Palpation (GI): Soft to palpation Back/Spine/Pelvis Other: unremarkable Skin General skin exam: no rashes or lesions noted Neuro General: patient oriented x3 Extrem General: Yes normal to inspection Psych Mental Status: mental status grossly normal Assessment & Plan Assessment & Plan (1) PAF (paroxysmal atrial fibrillation): Code(s): I48.0 - Paroxysmal atrial fibrillation Category: Medical Plan: Probable recent onset atrial fibrillation with rapid rate but unknown duration. Clinically no symptoms. He is currently on metoprolol/diltiazem. Start Eliquis. Reports drinking 6 pack per week and needs to cut back on that. Obtain Holter monitor for cardiac function. We will schedule you cardioversion after about 4 weeks of anticoagulation. (2) Essential hypertension: Code(s): I10 - Essential (primary) hypertension Category: Medical Plan: On Amlodipine and Lisinopril. Stable. (3) Regional wall motion abnormality of heart: Code(s): R93.1 - Abnormal findings on diagnostic imaging of heart and coronary circulation Category: Medical Plan: Echocardiogram in the past with basal inferior/inferoseptal hypokinesis. LVEF is preserved at 55-60%. In the perfusion imaging, there was small apical inferior reversible defect but normal contractility. Thought to be possibly artifactual. He has got no angina whatsoever. Last year, coronary CTA was ordered but not followed through by patient. Eventually, we will need to get this sorted out after the rhythm issues resolved. (4) Mixed dyslipidemia: Code(s): E78.2 - Mixed hyperlipidemia Category: Medical Plan: On statins. Much improved. Plan Discussion Notes I discussed with the patient the importance of starting Eliquis to manage his atrial fibrillation and prevent complications such as stroke. We talked about the cardioversion procedure, which is intended to restore normal heart rhythm, and I explained that it would be performed under anesthesia. The patient was informed that the procedure is scheduled for next month and was advised to avoid overexertion in the meantime. Patient was informed and verbally consented to the use of an ambient scribe for clinic note documentation during this visit. Orders: Orders CA echo transthoracic complete Today I48.0 - Paroxysmal atrial fibrillation Medications: New apixaban (Eliquis) 5 mg PO BID 180 tabs 1RF 90 days I48.0 - Paroxysmal atrial fibrillation Patient Instructions: - Start taking Eliquis as prescribed to manage atrial fibrillation. - Avoid strenuous activities to prevent worsening of your heart condition. - Prepare for the cardioversion procedure scheduled for next month. Coding Level of Care Code Est Pt Level 4 (42908) Complex EM visit Add On G2211 Diagnoses PAF (paroxysmal atrial fibrillation) I48.0 Essential hypertension I10 Regional wall motion abnormality of heart R93.1 Mixed dyslipidemia E78.2
[2025-08-14 14:35] VITALS: BP 110/80; PULSE 89; BMI 28.8
--- OUTSIDE RECORDS SUMMARY | 2025-08-14 17:39 | XMS_ITS | Clinical Summary ---
Author Organization [facility] Address [address] [place] [address] Care Team Providers Care Drop Board Man Name Role Phone Cynthia Joseph MD Primary Care Provider [phone] Social History Tobacco Use Types Packs/Day Years [...] age to complete this topic Care Teams Drop Board Man Relationship Specialty Start Date End Date Cynthia Joseph MD [address] [place] [address] PCP - General Internal Medicine 02/03/20
--- OUTSIDE RECORDS SUMMARY | 2025-08-14 17:39 | XMS_ITS | Patient Health Record ---
Author Organization [facility] Address [address] [place] [address] Care Team Providers Care Thermospray Operator Name Role Phone Parish Roberson M.D. Primary Care Provider Sadie lyubovLeoncio Knight Unavailable [phone] Reason For Referral No Information Medications Medication SIG (Take, Route, Frequency, Duration) Notes Start Date End Date Status Aubagio 14 MG 1 tablet Orally Once a day For MS 12/07/2016 Active Metoprolol Tartrate 50 MG TAKE 1 TABLET BY MOUTH TWICE A DAY WITH FOOD Oral; Duration: 30 Active Gabapentin 300 MG TAKE ONE [...] Problem Status W/U Status Risk Notes Problem Gastro-esophageal reflux disease without esophagitis (667557052) Gastro-esophageal reflux disease without esophagitis (K21.9) Active confirmed Problem Screening for malignant neoplasm of colon (587937833) Encounter for screening for malignant neoplasm of colon (Z12.11) Active confirmed Problem Screening for malignant neoplasm of rectum (307695606) Encounter for screening for malignant neoplasm of rectum (Z12.12) Active confirmed Problem Preprocedural examination (062404297642367) Preprocedural examination (Z01.818) Active confirmed Problem Gastroesophageal reflux disease (278236347) Gastroesophageal reflux disease, esophagitis presence not specified (K21.9) Active confirmed Problem Esophageal spasm (35055876) Esophageal spasm (K22.4) Active confirmed Plan Of Treatment Future Test Test Name Order Date COLONOSCOPY 12/07/2016 UPPER GI ENDOSCOPY 10/05/2018 Insurance Providers Payer Name Payer Address Payer Phone Subscriber Number Group Number Insured Name Patient Relationship to Insured Coverage Start Date Coverage End Date [facility] [address] [address] [place], [place] [id number] DON JOHNSON Self - patient is the insured MEDICAID OF [facility] [address] [place] [address] [id number] DON JOHNSON Self - patient is the insured Medical (General) History Medical History History ICD Code Hypertension Denies AR,DM,CVA,Lung disease,renal dise ase Multiple sclerosis--has some right leg w eakness Irregular heartbeat--sees Dr. Wilfredo holden Surgical History Surgery Date(Month/Year) cataract-lens implants x 2-right
== END 2025-08-14 14:57 | disposition home or self-care (01) ==
LOC: HO.HCS 13:42
PROVIDERS: PCP Internal Medicine; Visit Provider Internal Medicine
DX: I48.0 Paroxysmal atrial fibrillation (principal); I10 Essential (primary) hypertension; R93.1 Abnormal findings on diagnostic imaging of heart and coronary circulation; E78.2 Mixed hyperlipidemia
CPT/HCPCS: 99214

== ENCOUNTER → 2025-08-14 13:41 | Outpatient (BNVA) | payer OTHER, SELFPAY | PROVIDERS: PCP Internal Medicine; Visit Provider Internal Medicine | DX: I48.0 Paroxysmal atrial fibrillation (principal); I10 Essential (primary) hypertension; R93.1 Abnormal findings on diagnostic imaging of heart and coronary circulation; E78.2 Mixed hyperlipidemia | CPT/HCPCS: 99212 ==

== ENCOUNTER 2025-09-12 10:52 | Day surgery (SDC) | payer OTHER, SELFPAY ==
--- OUTSIDE RECORDS SUMMARY | 2025-09-01 12:59 | XMS_ITS | Clinical Summary ---
Author Organization [facility] Address [address] [place] [address] Care Team Providers Care Securities Analyst Name Role Phone Cynthia Joseph MD Primary Care Provider [phone] Social History Tobacco Use Types Packs/Day Years [...] age to complete this topic Care Teams Securities Analyst Relationship Specialty Start Date End Date Cynthia Joseph MD [address] [place] [address] PCP - General Internal Medicine 02/03/20
--- OUTSIDE RECORDS SUMMARY | 2025-09-01 12:59 | XMS_ITS | Encounter Summary ---
Author Organization [employer] Address [address] [place] [address] [facility] [place] [address] Care Team Providers Care Harvest Manager Name Role Phone Unavailable Primary Care Provider Unavailabl e Encounter Details Date Type Department Care Team (Latest Contact Info) Description 04/16/2021 Abstract [place] CONVERSIONS Dental, Provider, DDS Social History Tobacco [...]
--- OUTSIDE RECORDS SUMMARY | 2025-09-01 12:59 | XMS_ITS | Encounter Summary ---
Author Organization [employer] Address [address] [place] [address] [facility] [place] [address] Care Team Providers Care Road Supervisor Of Engines Name Role Phone Unavailable Primary Care Provider Unavailabl e Encounter Details Date Type Department Care Team (Latest Contact Info) Description 12/26/2019 Abstract [facility] CONVERSIONS Dental, Provider, DDS Social History [...]
--- OUTSIDE RECORDS SUMMARY | 2025-09-01 12:59 | XMS_ITS | Encounter Summary ---
Author Organization [employer] Address [address] [facility] 7t [place] [address] Care Team Providers Care Tree Farmer Name Role Phone Unavailable Primary Care Provider Unavailabl e Encounter Details Date Type Department Care Team (Late st Contact Info) Description 12/23/2022 Abstract [facility] ADULT DENTAL [address] [place] [address] George Quinn, DMD [address] [place] [address] Social History Tobacco Use Types Packs/Day Years [...]
--- OUTSIDE RECORDS SUMMARY | 2025-09-01 12:59 | XMS_ITS | Encounter Summary ---
Author Organization [employer] Address [address] [place] [address] [facility] [place] [address] Care Team Providers Care Drapery Cutter Name Role Phone Unavailable Primary Care Provider Unavailabl e Encounter Details Date Type Department Care Team (Latest Contact Info) Description 06/03/2022 Abstract [facility] CONVERSIONS Dental, Provider, DDS Social History [...]
--- OUTSIDE RECORDS SUMMARY | 2025-09-01 12:59 | XMS_ITS | Clinical Summary ---
Author Organization [employer] Address [address] [place] [address] 7t [place] [address] Care Team Providers Care User Interface Artist Name Role Phone Unavailable Primary Care Provider Unavailabl e Allergies No known active allergies Medications cholecalciferol (Vitamin D-3) 10 MCG (400 UNIT) capsule Active Cobalamin Combinations (Vitamin O91-Aestf Acid) 500-400 MCG tablet Active donepezil (Aricept) [...]
--- OUTSIDE RECORDS SUMMARY | 2025-09-01 12:59 | XMS_ITS | Encounter Summary ---
Author Organization [employer] Address [address] [facility] 7t [place] [address] Care Team Providers Care Clothing Sorter Name Role Phone Unavailable Primary Care Provider Unavailabl e Encounter Details Date Type Department Care Team (Late st Contact Info) Description 12/23/2022 Abstract [facility] ADULT DENTAL [address] [place] [address] George Quinn, DMD [address] [place] [address] Social History Tobacco Use Types Packs/Day Years [...]
--- NOTE | 2025-09-09 10:24 | HO.ANESPROP2 ---
Documented by User: Jada Meeks NP 09/09/25 10:44 HPI - Anesthesia Eval Consult details Narrative: 60 yr old male for cardioversion PAF: [place] [facility] [place], last visit 07/29/25, CV planned; ECHO ordered. Multiple sclerosis: Followed by Dr. Ceja; PCP note 04/2025 states stable +Tobacco use PMFSH Active Problems Active Problems: All Active Problems PAF (paroxysmal atrial fibrillation) (Acute) Mixed dyslipidemia (Acute) Overactive bladder (Acute) Multiple sclerosis (Acute) Impaired fasting glucose (Acute) Essential hypertension (Acute) Past Medical History Medical History PAF (paroxysmal atrial fibrillation) Lumbar disc disease with radiculopathy Mixed dyslipidemia Symptom of bladder outlet obstruction Macrocytosis without anemia Impaired fasting glucose Dyslipidemia Dislocation of proximal interphalangeal joint of right ring finger Dislocation of proximal interphalangeal joint of right middle finger Dislocation of proximal interphalangeal joint of right index finger Closed dislocation finger, proximal interphalangeal joint, traumatic Multiple sclerosis Essential hypertension Family History Family History Father No problems noted. Mother No problems noted. Surgical History Surgical History Hx of colonoscopy History of back surgery (~12/2019) History of right cataract surgery Social History Social History Housing: House Alcohol intake: current Alcohol intake frequency: a few times a week Alcohol type: beer Patient Tobacco Use Status: Current someday Tobacco user Cigarettes Per Day: 1 Years Smoked: 40 yrs e-Cigarette/Vaping Use: Never Used Current occupational status: disabled Current occupation: rt handed Cognitive needs: No Hearing needs: No Vision needs: No Meds Allergies Allergy/AdvReac Type Severity Reaction Status Date / Time No Known Allergies (No Known Allergy Verified 05/22/25 16:02 Allergies*) Home Medications ?Medication ?Instructions ?Recorded ?Confirmed ?Last Taken ?Type teriflunomide 14 mg tablet 14 mg PO DAILY 09/09/20 08/14/25 Unknown History tizanidine 4 mg tablet 4 mg PO BID 01/26/22 08/14/25 Unknown History Exam Pertinent Lab Results Pertinent Lab Results: Laboratory Tests 05/20/25 07/02/25 10:41 13:31 WBC 5.0 RBC 4.18 L Hgb 14.1 Hct 41.2 L Plt Count 152 L D Sodium 141 Potassium 4.0 D BUN 7 L Creatinine 0.89 Narrative Narrative: ECHO from 2020 Conclusions: - 1. Normal LV systolic function with impaired relaxation filling pattern with elevated left ventricular end-diastolic pressure 2. Mild biatrial enlargement 3. Normal cardiac valvular Doppler 4. Normal RV systolic pressure 5. No gross pericardial effusion EKG 06/2025 Afib with RVR rate 128 Documented by User: Irene Garcia MD 09/12/25 09:26 [facility] Past Medical History Medical History PAF (paroxysmal atrial fibrillation) Lumbar disc disease with radiculopathy Mixed dyslipidemia Symptom of bladder outlet obstruction Macrocytosis without anemia Impaired fasting glucose Dyslipidemia Dislocation of proximal interphalangeal joint of right ring finger Dislocation of proximal interphalangeal joint of right middle finger Dislocation of proximal interphalangeal joint of right index finger Closed dislocation finger, proximal interphalangeal joint, traumatic Multiple sclerosis Essential hypertension Family History Family History Father No problems noted. Mother No problems noted. Family history of problems with anesthesia: No Surgical History Surgical History Hx of colonoscopy History of back surgery (~12/2019) History of right cataract surgery History of Problems with Anesthesia: No Social History Social History Housing: House Alcohol intake: current Alcohol intake frequency: a few times a week Alcohol type: beer Patient Tobacco Use Status: Current someday Tobacco user Cigarettes Per Day: 1 Years Smoked: 40 yrs e-Cigarette/Vaping Use: Never Used Current occupational status: disabled Current occupation: rt handed Cognitive needs: No Hearing needs: No Vision needs: No Meds Allergies Allergy/AdvReac Type Severity Reaction Status Date / Time No Known Allergies (No Known Allergy Verified 05/22/25 16:02 Allergies*) Home Medications ?Medication ?Instructions ?Recorded ?Confirmed ?Last Taken ?Type teriflunomide 14 mg tablet 14 mg PO DAILY 09/09/20 08/14/25 Unknown History tizanidine 4 mg tablet 4 mg PO BID 01/26/22 08/14/25 Unknown History Exam Airway Mallampati Class: II TM Dist: >3cm Neck ROM: Full Heart: af Assessment and Plan Assessment Anesthesia Assessment: Anesthesia Plan Discussed and Chart Reviewed Final Anesthetic Review Family History of Problems with Anesthesia: No History of Problems with Anesthesia: No NPO: Yes ASA Class: III Final Preanesthetic Review: No Changes in Pt Med Stat, Meds/Allgs Chart Reviewed and Consent Obtained/Reviewed Patient Risk: Intermediate Procedure Risk: Low Anesthetic Plan Anesthetic Plan: MAC: and Agree w/ Assess. and Plan Disposition: Standard PACU
[2025-09-12] VITALS (7 sets, daily range): BP systolic 119–154; BP diastolic 77–98; PULSE 53–78; RESP 12–22; TEMP 36.1–36.3; O2SAT 95–98; BMI 28.8
[2025-09-12] MEDS: Lactated Ringers 1,000 ML 100 ML IVCONT (11:29)
--- NOTE | 2025-09-12 12:13 | MHC.SHP ---
Pre-Procedural Eval Section A - 24 Hr Update-Section A only Date of Service: 09/12/25 The patient is an INPATIENT: No Section B - Complete if H&P > 30 days Chief Complaint: Unspecified atrial fibrillation Allergies: Allergies Allergy/AdvReac Type Severity Reaction Status Date / Time No Known Allergies (No Known Allergy Verified 09/12/25 11:12 Allergies*) Plan I have reviewed the history and physical and performed a pertinent physical examination on my patient. No changes have occurred unless specified. Time Spent With Patient Time: Total time managing care of this patient today ____ minutes.
--- NOTE | 2025-09-12 12:17 | HO.CARDIVERS ---
Cardioversion Procedure Note Cardioversion Date of Procedure: 09/12/2025 Pre-Op Diagnosis: Atrial fibrillation Post-Op Diagnosis: Sinus rhythm Consent: Informed consent obtained. Procedure: After informed consent was obtained, patient was taken to the PACU. The patient was then positioned appropriately. The cardioversion pads were placed in anteroposterior position. Once under anesthesia, 120 joules of synchronized shock was administered. The rhythm remained in atrial fibrillation and attempted again with 150 joules shock. The rhythm then converted from atrial fibrillation to sinus rhythm. Patient remained in sinus rhythm after the end of procedure. Complications: None Impression: Successful cardioversion from atrial fibrillation to sinus rhythm. Recommendations: Start amiodarone. Continue anticoagulation.
--- NOTE | 2025-09-12 12:28 | ECG_ITS ---
Test Reason : POST CARDIOVERSION Blood Pressure : */* mmHG Vent. Rate : 57 BPM Atrial Rate : 57 BPM P-R Int : 196 ms QRS Dur : 100 ms QT Int : 446 ms P-R-T Axes : 51 26 62 degrees QTcB Int : 434 ms Sinus bradycardia Otherwise normal ECG When compared with ECG of 13-Apr-2005 11:41, ST no longer elevated in Inferior leads T wave amplitude has decreased in Anterolateral leads Referred By: Rachel Rodriguez Electronically Signed By: RACHEL RODRIGUEZ
== END 2025-09-12 13:33 | disposition home or self-care (01) ==
PROVIDERS: PCP Internal Medicine; Visit Provider Internal Medicine
PROC: 5A2204Z Restoration of Cardiac Rhythm, Single (ICD-10-PCS; principal; 2025-09-12 13:30)
DX: I48.91 Unspecified atrial fibrillation (principal); I48.0 Paroxysmal atrial fibrillation; I10 Essential (primary) hypertension; G35.D Multiple sclerosis, unspecified; M51.16 Intervertebral disc disorders with radiculopathy, lumbar region; E78.2 Mixed hyperlipidemia; D75.89 Other specified diseases of blood and blood-forming organs; R73.01 Impaired fasting glucose; Z79.01 Long term (current) use of anticoagulants; Z79.899 Other long term (current) drug therapy; Z79.890 Hormone replacement therapy; F17.210 Nicotine dependence, cigarettes, uncomplicated
CPT/HCPCS: 92960; 93005; J2003; J2704

== ENCOUNTER → 2025-09-12 10:52 | Outpatient (BNV) | payer OTHER, SELFPAY | PROVIDERS: PCP Internal Medicine; Visit Provider Internal Medicine | DX: I48.91 Unspecified atrial fibrillation (principal); R00.1 Bradycardia, unspecified | CPT/HCPCS: 92960; 93010 ==

== ENCOUNTER → 2025-09-24 13:59 | Outpatient (REF) | payer OTHER, SELFPAY ==
--- NOTE | 2025-09-24 14:05 | ECG_ITS ---
Test Reason : PAF Blood Pressure : */* mmHG Vent. Rate : 92 BPM Atrial Rate : * BPM P-R Int : * ms QRS Dur : 94 ms QT Int : 378 ms P-R-T Axes : * 52 23 degrees QTcB Int : 467 ms Atrial fibrillation Abnormal ECG When compared with ECG of 12-Sep-2025 12:36, Atrial fibrillation has replaced Sinus rhythm Vent. rate has increased by 35 bpm Referred By: Rachel Rodriguez Electronically Signed By: RACHEL RODRIGUEZ
--- OUTSIDE RECORDS SUMMARY | 2025-09-24 16:50 | XMS_ITS | Encounter Summary ---
Author Organization [employer] Address [address] [place] [address] [facility] [place] [address] Care Team Providers Care Agency Sales Management Assistant Name Role Phone Unavailable Primary Care Provider Unavailabl e Encounter Details Date Type Department Care Team (Latest Contact Info) Description 04/16/2021 Abstract [facility] CONVERSIONS Dental, Provider, DDS Social History Tobacco [...]
--- OUTSIDE RECORDS SUMMARY | 2025-09-24 16:50 | XMS_ITS | Encounter Summary ---
Author Organization [employer] Address [address] [place] [address] [facility] [place] [address] Care Team Providers Care Pt Escort Name Role Phone Unavailable Primary Care Provider Unavailabl e Encounter Details Date Type Department Care Team (Latest Contact Info) Description 06/03/2022 Abstract [facility] CONVERSIONS Dental, Provider, DDS Social History [...]
--- OUTSIDE RECORDS SUMMARY | 2025-09-24 16:50 | XMS_ITS | Encounter Summary ---
Author Organization [employer] Address [address] [place] [address] [facility] [place] [address] Care Team Providers Care Correctional Food Service Supervisor Name Role Phone Unavailable Primary Care Provider Unavailabl e Encounter Details Date Type Department Care Team (Latest Contact Info) Description 12/26/2019 Abstract [facility] CONVERSIONS Dental, Provider, DDS Social History Tobacco [...]
--- OUTSIDE RECORDS SUMMARY | 2025-09-24 16:50 | XMS_ITS | Encounter Summary ---
Author Organization [employer] Address [address] [facility] 7t [place] [address] Care Team Providers Care Staff Antisubmarine Officer Name Role Phone Unavailable Primary Care Provider Unavailabl e Encounter Details Date Type Department Care Team (Late st Contact Info) Description 12/23/2022 Abstract [facility] ADULT DENTAL [address] [place] [address] George Quinn, DMD [address] [place] [address] Social History Tobacco Use Types Packs/Day Years [...]
--- OUTSIDE RECORDS SUMMARY | 2025-09-24 16:50 | XMS_ITS | Patient Health Record ---
Author Organization [facility] Address [address] [place] [address] Care Team Providers Care Telemetry Nurse Name Role Phone Parish Roberson M.D. Primary Care Provider Sadie lyubovLeoncio Knight Unavailable [phone] Reason For Referral No Information Medications Medication SIG (Take, Route, Frequency, Duration) Notes Start Date End Date Status Aubagio 14 MG Tablet 1 tablet Orally Onc e a day For MS 12/07/2016 Active Metoprolol Tartrate 50 MG Tablet TAKE 1 TABLET BY MOUTH TWICE A DAY WITH FOOD Oral; Duration: 30 Active Gabapentin 300 MG Capsule TAKE ONE CAPSU LE BY MOUTH BEFORE BEDTIME FOR 30 DAYS Oral Once a day Active amLODIPine Besylate 2.5 MG Tablet TAKE 1 TABLET ONCE A DAY ORALLY FOR 30 DAYS Oral Once a day Active oxyBUTYnin Chloride ER 10 MG Tablet Extended Release 24 Hour TAKE 1 TABLET BY MOUTH EVERY DAY Oral Once a day Active Sertraline HCl 25 MG Tablet TAKE 1 TABLET BY MOUTH EVERY DAY Oral Once a day Active Omeprazole 20 MG Tablet Delayed Release TAKE 1 TABLET BY MOUTH EVERY DAY Oral Once a day Active Vitamin D3 2000 UNIT Capsule TAKE ONE CAPSULE BY MOUTH ONCE A DAY WITH DINNER Oral Once a day Active Immunizations Vaccine Route Administration Date Status Comme nts Influenza Unknown 10/05/2018 Refused Social History Tobacco Use: Social History Observation Description Date Details (start date - stop date) Current Smoker NA - NA Social History Tobacco Use: Social Info Question Answer Notes Tobacco Use/Smoking Patient is a current smoker How often do you smoke cigarettes? some days, but not every day How many cigarettes a day do you smoke? 5 or less How soon after you wake up do you smoke your first cigarette? after 60 minutes Are you interested in quitting? Thinking about quitting Additional Details Category Social Info Options Details Miscellaneous: Marital status: single Occupation: unemployed Section Notes: Smoker; occasional beer Smoker; occasional beer--- h e describes heavy drinking over 10 years ago Problems Problem Type SNOMED Code ICD Code Onset Dates Problem Status W/U Status Risk Notes Problem Gastro-esophageal reflux disease without esophagitis (998532221) Gastro-esophageal reflux disease without esophagitis (K21.9) Active confirmed Problem Screening for malignant neoplasm of colon (988314622) Encounter for screening for malignant neoplasm of colon (Z12.11) Active confirmed Problem Screening for malignant neoplasm of rectum (007971729) Encounter for screening for malignant neoplasm of rectum (Z12.12) Active confirmed Problem Preprocedural examination (679892484729851) Preprocedural examination (Z01.818) Active confirmed Problem Gastroesophageal reflux disease (828895150) Gastroesophageal reflux disease, esophagitis presence not specified (K21.9) Active confirmed Problem Esophageal spasm (40651387) Esophageal spasm (K22.4) Active confirmed Plan Of Treatment Future Test Test Name Order Date COLONOSCOPY 12/07/2016 UPPER GI ENDOSCOPY 10/05/2018 Insurance Providers Payer Name Payer Address Payer Phone Subscriber Number Group Number Insured Name Patient Relationship to Insured Coverage Start Date Coverage End Date [facility] [address] [address] [place], [place] [id number] DON JOHNSON Self - patient is the insured MEDICAID OF [facility] [address] [place] [address] [id number] DON JOHNSON Self - patient is the insured Medical (General) History Medical History History ICD Code Hypertension Denies [place],DM,CVA,Lung disease,renal dise ase Multiple sclerosis--has some right leg w eakness Irregular heartbeat--sees Dr. Wilfredo holden Surgical History Surgery Date(Month/Year) cataract-lens implants x 2-right
--- OUTSIDE RECORDS SUMMARY | 2025-09-24 16:50 | XMS_ITS | Clinical Summary ---
Author Organization [email or web address] Address [address] [place] [address] 7t [place] [address] Care Team Providers Care Cleaning Specialist Name Role Phone Unavailable Primary Care Provider Unavailabl e Allergies No known active allergies Medications cholecalciferol (Vitamin D-3) 10 MCG (400 UNIT) capsule Active Cobalamin Combinations (Vitamin Z61-Htlev Acid) 500-400 MCG tablet Active donepezil (Aricept) [...]
--- OUTSIDE RECORDS SUMMARY | 2025-09-24 16:50 | XMS_ITS | Clinical Summary ---
Author Organization [facility] Prior to 03/22/[address] [place] [address] Care Team Providers Care Linux System Administrator Name Role Phone Cynthia Joseph MD Primary Care Provider [phone] Social History Tobacco Use Types Packs/Day Years [...] age to complete this topic Care Teams Linux System Administrator Relationship Specialty Start Date End Date Cynthia Joseph MD [address] [place] [address] PCP - General Internal Medicine 02/03/20
--- OUTSIDE RECORDS SUMMARY | 2025-09-24 16:50 | XMS_ITS | Encounter Summary ---
Author Organization [email or web address] Address [address] [facility] 7t [place] [address] Care Team Providers Care Rnp Name Role Phone Unavailable Primary Care Provider Unavailabl e Encounter Details Date Type Department Care Team (Late st Contact Info) Description 12/23/2022 Abstract [facility] ADULT DENTAL [address] [place] [address] George Quinn, DMD [address] [place] [address] Social History Tobacco Use Types Packs/Day Years [...]
== END ==
LOC: HO.CARD 13:59
PROVIDERS: PCP Internal Medicine; Visit Provider Internal Medicine
DX: I48.0 Paroxysmal atrial fibrillation (principal)
CPT/HCPCS: 93005

== ENCOUNTER → 2025-09-24 14:05 | Outpatient (BNV) | payer OTHER, SELFPAY | PROVIDERS: PCP Internal Medicine; Visit Provider Internal Medicine | DX: I48.91 Unspecified atrial fibrillation (principal) | CPT/HCPCS: 93010 ==

== ENCOUNTER → 2025-09-29 13:34 | Outpatient (REF) | payer OTHER, SELFPAY ==
--- NOTE | 2025-09-29 13:37 | CA_ITS ---
Transthoracic Echocardiogram Patient (Last, First, Middle): Daniel Mcnamara D Gender: M Date of : 1965 Age: 60 Procedure Date: 09/29/2025 Procedure Type: Transthoracic Echocardiogram Location: OP Height: 177.8 cm Weight: 90.72 kg BSA: 2.09 m2 Heart Rate: bpm BP: 110 / 80 mmHg Radio Communications Mechanician: SB Referring MD: Gabriel Mathews MD Education Professional: John Graves MD Symptoms: I48.0 - Paroxysmal atrial fibrillation Study Quality: Adequate ECG Rhythm: Atrial Fibrillation Conclusions: - 1. Mildly dilated LV with moderately reduced LV ejection fraction 35-40% next 2. Moderately dilated left atrium 3. Normal cardiac valvular Dopplers 4. Mildly to moderately elevated right ventricular systolic pressure with significantly elevated right atrial pressures 5. No gross pericardial effusion Findings Left Ventricle Mildly increased left ventricular cavity size. There is normal left ventricular wall thickness. The left ventricular systolic function is moderately decreased. The visually estimated ejection fraction is between 35 40%. Diastolic function is indeterminate on the basis of available data. Right Ventricle Normal right ventricular cavity size and systolic function. Atria The left atrium is moderately dilated. There is no evidence of interatrial shunt. The right atrium is likely dilated. Aortic Valve Normal aortic valve structure and function. There is no aortic valve stenosis. There is no aortic valve regurgitation. Mitral Valve Normal mitral valve structure and function. There is trace mitral valve regurgitation. There is no mitral valve stenosis. Pulmonic Valve The pulmonic valve was not well visualized. Tricuspid Valve Normal tricuspid valve structure. There is mild tricuspid valve regurgitation. Significantly elevated right atrial pressure. Mild to moderate pulmonary hypertension is present. Great Vessels All visible segments of the aorta are normal in size. The pulmonary artery was not well visualized. There is no dilatation of the ascending aorta measuring 3.00 cm. Venous The inferior vena cava is moderately dilated and collapses less than 50% with inspiration. Pericardium/Pleural There is no evidence of pericardial effusion. Prior Study Comparison Significant changes compared to prior study dated: 09/08/2025. LV systolic function significantly reduced with elevated right ventricular systolic pressure Measurements 2D Linear Measurements IVSd: 0.98 0.6-0.9/0.6-1.0 cm LVIDd: 5.84 3.9-5.3/4.2-5.9 cm LVIDd Index: 2.79 2.4-3.2/2.2-3.1 cm/m2 LVIDs: 4.90 2.0-3.6 cm LVPWd: 0.86 0.7-1.1 cm LA Diam: 5.00 2.7-3.8/3.0-4.0 cm LAIDs Index: 2.39 1.5-2.3 cm/m2 LV Mass: 263.04 67-162/88-224 g LV Mass Index: 125.86 43-95/49-115 g/m2 LVOT Diam: 2.30 3.0+(-)1.3 cm 2D Systolic Function EF 4C: 36.10 >55% EF 2C: 34.30 >55% EF BiP: 36.90 >55% Mitral Valve MV Pk E: 1.15 MV Decel Time: 147.00 E'Lateral: 7.72 E'Medial: 5.04 E/E' Med: 22.80 E/E' Lat: 14.90 Aortic Valve AoV Pk Luisito: 1.06 AoV Pk Grad: 4.00 PATRICK: 4.03 LVOT LVOT Pk Luisito: 1.03 LVOT Mn Luisito: 0.73 LVOT VTI: 0.19 LVOT Pk Grad: 4.00 LVOT Mn Grad: 2.00 LVOT Diam: 2.30 LVOT Area: 4.15 Diastolic Function MV Pk E: 1.15 E'Medial: 5.04 E/E' Med: 22.80 E' Laterial: 7.72 E/E' Lat: 14.90 Right Ventricle TAPSE (mm): 17.30 TVS' Luisito: 11.00 Tricuspid Valve TR Pk Luisito: 2.98 TR Pk Grad: 36.00 RA Press: 15.00 RVSP: 51.00 Great Vessels Aorta Sinus of Valsalva: 3.40 2.0-3.5 cm Ao Asc: 3.00 2.1-3.4 cm Pulmonary Valve PV Pk Luisito: 0.71 Peak PV Grad: 2.00 Updated in Other Vendor System with Status of Final John Graves MD electronically signed on 09/30/2025 11:44:37 AM with status of Final
[2025-09-29 17:24] LABS: Prostate Specific Antigen 4.98 ng/mL (<0.05-4.0)
--- OUTSIDE RECORDS SUMMARY | 2025-09-29 22:20 | XMS_ITS | Encounter Summary ---
Author Organization [employer] Address [address] [place] [address] [facility] [place] [address] Care Team Providers Care Teachers' Assistant Name Role Phone Unavailable Primary Care Provider Unavailabl e Encounter Details Date Type Department Care Team (Latest Contact Info) Description 12/26/2019 Abstract [facility] CONVERSIONS Dental, Provider, DDS Social History [...]
--- OUTSIDE RECORDS SUMMARY | 2025-09-29 22:20 | XMS_ITS | Clinical Summary ---
Author Organization [employer] Address [address] [place] [address] 7t [place] [address] Care Team Providers Care Agent Telegrapher Name Role Phone Unavailable Primary Care Provider Unavailabl e Allergies No known active allergies Medications cholecalciferol (Vitamin D-3) 10 MCG (400 UNIT) capsule Active Cobalamin Combinations (Vitamin Z11-Oahrm Acid) 500-400 MCG tablet Active donepezil (Aricept) [...]
--- OUTSIDE RECORDS SUMMARY | 2025-09-29 22:20 | XMS_ITS | Patient Health Record ---
Author Organization [facility] Address [address] [place] [address] Care Team Providers Care Cloth Desizing Range Operator Chief Name Role Phone Parish Roberson M.D. Primary Care Provider Sadie lyubovLeoncio Knight Unavailable [phone] Reason For Referral No Information Medications Medication [...] Notes Problem Gastro-esophageal reflux disease without esophagitis (800598142) Gastro-esophageal reflux disease without esophagitis (K21.9) Active confirmed Problem Screening for malignant neoplasm of colon (662430102) Encounter for screening for malignant neoplasm of colon (Z12.11) Active confirmed Problem Screening for malignant neoplasm of rectum (589093046) Encounter for screening for malignant neoplasm of rectum (Z12.12) Active confirmed Problem Preprocedural examination (687249168328576) Preprocedural examination (Z01.818) Active confirmed Problem Gastroesophageal reflux disease (636909379) Gastroesophageal reflux disease, esophagitis presence not specified (K21.9) Active confirmed Problem Esophageal spasm (18770065) Esophageal spasm (K22.4) Active confirmed Plan Of Treatment Future Test Test Name Order Date COLONOSCOPY 12/07/2016 UPPER GI ENDOSCOPY 10/05/2018 Insurance Providers Payer Name Payer Address Payer Phone Subscriber Number Group Number Insured Name Patient Relationship to Insured Coverage Start Date Coverage End Date [facility] [address] [address] [place], [place] [id number] DON JOHNSON Self - patient is the insured MEDICAID OF [facility] [address] [place] [address] [id number] DON JOHNSON Self - patient is the insured Medical (General) History Medical History History ICD Code Hypertension Denies ME,DM,CVA,Lung disease,renal dise ase Multiple sclerosis--has some right leg w eakness Irregular heartbeat--sees Dr. Wilfredo holden Surgical History Surgery Date(Month/Year) cataract-lens implants x 2-right
--- OUTSIDE RECORDS SUMMARY | 2025-09-29 22:20 | XMS_ITS | Clinical Summary ---
Author Organization [facility] Prior to 03/22/[address] [place] [address] Care Team Providers Care Chrome Worker Name Role Phone Cynthia Joseph MD Primary Care Provider [phone] Social History Tobacco Use Types Packs/Day Years [...] age to complete this topic Care Teams Chrome Worker Relationship Specialty Start Date End Date Cynthia Joseph MD [address] [place] [address] PCP - General Internal Medicine 02/03/20
--- OUTSIDE RECORDS SUMMARY | 2025-09-29 22:20 | XMS_ITS | Encounter Summary ---
Author Organization [employer] Address [address] [place] [address] [facility] [place] [address] Care Team Providers Care Director Of Compliance Name Role Phone Unavailable Primary Care Provider Unavailabl e Encounter Details Date Type Department Care Team (Latest Contact Info) Description 04/16/2021 Abstract [facility] CONVERSIONS Dental, Provider, DDS Social History Tobacco [...]
--- OUTSIDE RECORDS SUMMARY | 2025-09-29 22:20 | XMS_ITS | Encounter Summary ---
Author Organization [employer] Address [address] [facility] 7t [place] [address] Care Team Providers Care Gypsum Roofer Name Role Phone Unavailable Primary Care Provider Unavailabl e Encounter Details Date Type Department Care Team (Late st Contact Info) Description 12/23/2022 Abstract [facility]ULT [facility] [address] [place] [address] George Quinn, DMD [address] [place] [address] Social History Tobacco Use Types Packs/Day Years [...]
--- OUTSIDE RECORDS SUMMARY | 2025-09-29 22:20 | XMS_ITS | Encounter Summary ---
Author Organization [employer] Address [address] [place] [address] [facility] [place] [address] Care Team Providers Care Brand Ambassadors Promotional Sales Name Role Phone Unavailable Primary Care Provider Unavailabl e Encounter Details Date Type Department Care Team (Latest Contact Info) Description 06/03/[address] [facility] CONVERSIONS Dental, Provider, DDS Social History [...]
--- OUTSIDE RECORDS SUMMARY | 2025-09-29 22:20 | XMS_ITS | Encounter Summary ---
Author Organization [employer] Address [address] [facility] 7t [place] [address] Care Team Providers Care Bindery Operator Name Role Phone Unavailable Primary Care Provider Unavailabl e Encounter Details Date Type Department Care Team (Late st Contact Info) Description 12/23/2022 Abstract [facility] ADULT DENT[facility] [address] [place] [address] George Quinn, DMD [address] [place] [address] Social History Tobacco Use Types Packs/Day Years [...]
== END ==
LOC: HO.CARD 13:34
PROVIDERS: Absent Provider Urology; PCP Internal Medicine; Visit Provider Internal Medicine
DX: I48.0 Paroxysmal atrial fibrillation (principal); N32.81 Overactive bladder
CPT/HCPCS: 36415; 84153; 93306

== ENCOUNTER → 2025-09-29 13:37 | Outpatient (BNV) | payer OTHER, SELFPAY | PROVIDERS: Absent Provider Urology; PCP Internal Medicine; Visit Provider Internal Medicine Cardiovascular Disease | DX: I51.7 Cardiomegaly (principal) | CPT/HCPCS: 93306 ==

== ENCOUNTER → 2025-10-21 08:59 | Outpatient (REF) | payer OTHER, SELFPAY ==
--- NOTE | 2025-10-21 09:01 | CA_ITS ---
Acquisition Time: 2025-10-21 09:00:20 Total Exercise Time: 00:02:00 Test Indications: AFIB,Abnormal ECG Medications: SEE H&P Protocol: LEXISCAN Max HR: 117 BPM 73% of Pred: 159 BPM Max BP: 122/80 mmHG Max Work Load: 1.0 METS Pharmacological stress test with Lexiscan while pt marches in chair, with reports of SOB and dizziness, without any arrythmias, with normotenisve response to injection. Nondiagnostic EKG for ischemia. In recovery, pt treated with IVP Aminophylline 75 mg to reverse Lexiscan after which pt feeling back to baseline. Nuclear images pending. Test reviewed with Dr. Mathews. Referred By: Rik Phelps Electronically Signed By: Rik Phelps
--- OUTSIDE RECORDS SUMMARY | 2025-10-21 11:09 | XMS_ITS | Encounter Summary ---
Author Organization [employer] Address [address] [place] [address] [facility] [place] [address] Care Team Providers Care Reliner Name Role Phone Unavailable Primary Care Provider Unavailabl e Encounter Details Date Type Department Care Team (Latest Contact Info) Description 12/26/2019 Abstract [facility] CONVERSIONS Dental, Provider, DDS Social History [...]
--- OUTSIDE RECORDS SUMMARY | 2025-10-21 11:09 | XMS_ITS | Encounter Summary ---
Author Organization [employer] Address [address] [place] [address] [facility] [place] [address] Care Team Providers Care Backend Tester Name Role Phone Unavailable Primary Care Provider Unavailabl e Encounter Details Date Type Department Care Team (Latest Contact Info) Description 06/03/2022 Abstract [facility] CONVERSIONS Dental, Provider, DDS Social History Tobacco [...]
--- OUTSIDE RECORDS SUMMARY | 2025-10-21 11:09 | XMS_ITS | Encounter Summary ---
Author Organization [employer] Address [address] [facility] 7t [place] [address] Care Team Providers Care Condenser Cleaner Name Role Phone Unavailable Primary Care Provider Unavailabl e Encounter Details Date Type Department Care Team (Late st Contact Info) Description 12/23/[address] [facility] ADULT D[facility] [address] [place] [address] George Quinn, DMD [address] [place] [address] Social History Tobacco Use Types Packs/Day Years [...]
--- OUTSIDE RECORDS SUMMARY | 2025-10-21 11:09 | XMS_ITS | Encounter Summary ---
Author Organization [employer] Address [address] [facility] 7t [place] [address] Care Team Providers Care Woodworker Helper Name Role Phone Unavailable Primary Care Provider Unavailabl e Encounter Details Date Type Department Care Team (Late st Contact Info) Description 12/23/2022 Abstract [facility] ADULT D[facility] [address] [place] [address] George Quinn, DMD [address] [place] [address] Social History Tobacco Use Types Packs/Day Years [...]
--- OUTSIDE RECORDS SUMMARY | 2025-10-21 11:09 | XMS_ITS | Encounter Summary ---
Author Organization [employer] Address [address] [place] [address] [facility] [place] [address] Care Team Providers Care Color Print Inspector Name Role Phone Unavailable Primary Care Provider Unavailabl e Encounter Details Date Type Department Care Team (Latest Contact Info) Description 04/16/2021 Abstract [facility] CONVERSIONS Dental, Provider, DDS Social [...]
--- OUTSIDE RECORDS SUMMARY | 2025-10-21 11:09 | XMS_ITS | Clinical Summary ---
Author Organization [facility] Prior to 03/22/[address] [place] [address] Care Team Providers Care Supervisory Historian Name Role Phone Cynthia Joseph MD Primary Care Provider [phone] Social History Tobacco Use Types Packs/Day Years [...] age to complete this topic Care Teams Supervisory Historian Relationship Specialty Start Date End Date Cynthia Joseph MD [address] [place] [address] PCP - General Internal Medicine 02/03/20
--- OUTSIDE RECORDS SUMMARY | 2025-10-21 11:09 | XMS_ITS | Patient Health Record ---
Author Organization [facility] Address [address] [place] [address] Care Team Providers Care Dance Teacher Name Role Phone Parish Roberson M.D. Primary Care Provider Sadie lyubovLeoncio Knight Unavailable [phone] Reason For Referral No Information Medications Medication [...] Notes Problem Gastro-esophageal reflux disease without esophagitis (328060597) Gastro-esophageal reflux disease without esophagitis (K21.9) Active confirmed Problem Screening for malignant neoplasm of colon (335230023) Encounter for screening for malignant neoplasm of colon (Z12.11) Active confirmed Problem Screening for malignant neoplasm of rectum (013999233) Encounter for screening for malignant neoplasm of rectum (Z12.12) Active confirmed Problem Preprocedural examination (443754601562569) Preprocedural examination (Z01.818) Active confirmed Problem Gastroesophageal reflux disease (145994861) Gastroesophageal reflux disease, esophagitis presence not specified (K21.9) Active confirmed Problem Esophageal spasm (40905337) Esophageal spasm (K22.4) Active confirmed Plan Of Treatment Future Test Test Name Order Date COLONOSCOPY 12/07/2016 UPPER GI ENDOSCOPY 10/05/2018 Insurance Providers Payer Name Payer Address Payer Phone Subscriber Number Group Number Insured Name Patient Relationship to Insured Coverage Start Date Coverage End Date [facility] [address] [address] [place], [place] [id number] DON JOHNSON Self - patient is the insured MEDICAID OF [facility] [address] [place] [address] [id number] DON JOHNSON Self - patient is the insured Medical (General) History Medical History History ICD Code Hypertension Denies [place],DM,CVA,Lung disease,renal dise ase Multiple sclerosis--has some right leg w eakness Irregular heartbeat--sees Dr. Wilfredo holden Surgical History Surgery Date(Month/Year) cataract-lens implants x 2-right
--- OUTSIDE RECORDS SUMMARY | 2025-10-21 11:09 | XMS_ITS | Clinical Summary ---
Author Organization [employer] Address [address] [place] [address] 7t [place] [address] Care Team Providers Care Technical Sales Director Name Role Phone Unavailable Primary Care Provider Unavailabl e Allergies No known active allergies Medications cholecalciferol (Vitamin D-3) 10 MCG (400 UNIT) capsule Active Cobalamin Combinations (Vitamin J78-Nrqaa Acid) 500-400 MCG tablet Active donepezil (Aricept) [...]
== END ==
LOC: HO.CARD 08:59
PROVIDERS: PCP Internal Medicine
DX: I42.9 Cardiomyopathy, unspecified (principal)
CPT/HCPCS: 93017; J0280; J2785

== ENCOUNTER → 2025-10-21 09:01 | Outpatient (BNV) | payer OTHER, SELFPAY | PROVIDERS: PCP Internal Medicine | DX: I42.9 Cardiomyopathy, unspecified (principal); R06.02 Shortness of breath | CPT/HCPCS: 93016; 93018 ==